=== PATIENT | male | born 1955 | race Caucasian/White ===

== ENCOUNTER → 2023-12-03 14:49 | Outpatient (REF) | payer MEDICARE, SELFPAY | LOC: HWRAD 14:49 | PROVIDERS: ATTENDING PHYSICIAN Specialist; FAMILY PHYSICIAN Family Medicine | DX: N17.9 Acute kidney failure, unspecified (principal); E87.20 Acidosis, unspecified; R80.9 Proteinuria, unspecified; N18.31 Chronic kidney disease, stage 3a | CPT/HCPCS: 76770 ==

== ENCOUNTER 2024-04-23 22:46 | Inpatient (IN) | payer MEDICARE, SELFPAY ==
[2024-04-23 19:41] VITALS: BP 138/80
[2024-04-23 19:57] LABS: % Eosinophils 3.6 % (0-6); % Immature Granulocytes 0.3 % (0-0.5); % Lymphocytes 15.9 % (20.5-51.1); % Monocytes 6.3 % (1.7-9.3); % Neutrophils 72.9 % (42.2-75.2); Absolute Basophils 0.1 10^3/uL (0-0.2); Absolute Eosinophils 0.3 10^3/uL (0-0.7); Absolute Lymphocytes 1.1 10^3/uL (1.2-3.4); Absolute Monocytes 0.5 10^3/uL (0.1-0.6); Absolute Neutrophils 5.3 10^3/uL (1.4-6.5); Hematocrit 29.2 % (39.0-52.0); Hemoglobin 10.3 g/dL (13.0-18.0); Mean Corp Hgb Conc. 35.3 g/dL (33.0-37.0); Mean Corpuscular Hgb 31.8 pg (27.0-31.0); Mean Corpuscular Volume 90.1 fL (80.0-94.0); Mean Platelet Volume 8.8 fL (7.4-10.4); Nucleated Red Blood Cells % 0 % (-); Platelet Count 182 10^3/uL (130-400); Red Blood Cell Count 3.24 10^6/uL (4.70-6.10); Red Cell Dist. Width 13.9 % (11.5-14.5); White Blood Cell Count 7.2 10^3/uL (4.8-10.8)
[2024-04-23 20:14] LABS: ALT (SGPT) 28 U/L (0-50); AST (SGOT) 34 U/L (17-59); Albumin 2.8 g/dl (3.5-5.0); Alkaline Phosphatase 49 U/L (38-126); Blood Urea Nitrogen 54 mg/dl (9-20); Calcium 8.1 mg/dl (8.4-10.2); Carbon Dioxide 10 mmol/L (22-30); Chloride 115 mmol/L (98-107); Glucose 123 mg/dl (70-99); Potassium 3.6 mmol/L (3.5-5.1); Sodium 139 mmol/L (135-145); Total Bilirubin 0.5 mg/dl (0.2-1.3); Total Protein 5.5 g/dl (6.3-8.2); eGFR 15.17
--- NOTE | 2024-04-23 20:26 | ED.GENMED ---
History of Present Illness
General
Chief Complaint: Abnormal Lab Value
Source: patient and spouse
Exam Limitations: none
Time Seen by Provider: 04/23/24 20:25
Nursing documentation reviewed up to this point in time: agreed with
History of Present Illness
History of Present Illness:
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
fatigue shortness of breath cough lower extremity edema decreased urine output inability to empty his bladder which is not a new issue
Past History
Past History
ED Past Medical History: CVA, HTN, Hypercholesterolemia, Renal failure and Psychiatric (Depression)
ED Past Surgical History: Cardiac (Cardiac catheterization, pacemaker) and Orthopedic (Right knee cyst removal)
Social History
Tobacco: Smoker
Alcohol: None
Drug: None
Personal:
Living: with family
Employment: Retired
Review of Systems
Review of Systems
All Other Systems: Not applicable
Constitutional: Reports fatigue; Denies fever
Respiratory: Reports cough and trouble breathing
Cardiac: Denies chest pain
ABD/GI: Denies abdominal pain or nausea
: Reports difficulty voiding
Musculoskeletal: Reports edema
Skin: Reports no symptoms
Neurological: Reports weakness
Endocrine: Reports no symptoms
Psychiatric: Reports no symptoms
Phy Exam
Physical Exam
Physical Exam:
Physical Exam
General: 69-year-old male mild distress
Neck: No jaundice
Heart: Regular
Lungs: Bibasilar crackle
Abdomen: Nontender
Neuro: alert and oriented. no focal neurological deficits
Skin: no rash
Psychiatric: well kept. interactive and cooperative
Extremities: Edema is present
Course
Orders/Labs/Results
Orders:
Orders
04/23/24 19:50
Complete Blood Count/With Diff Urgent
Comprehensive Metabolic Panel Urgent
04/23/24 20:34
Electrocardiogram (*1) Urgent
Reason for Study: Palpitations
CT Abd/pel Without Iv Or Oral Urgent
Comment:
Reason For Exam: arf
Bladder Scan- Treatment ONCE
EKG- Treatment ONCE
CR Chest - 2 Views Urgent
Comment:
Reason For Exam: sob
Abnormal Lab Results
04/23/24
19:50
RBC 3.24 L 10^6/uL
(4.70-6.10)
Hgb 10.3 L g/dL
(13.0-18.0)
Hct 29.2 L %
(39.0-52.0)
MCH 31.8 H pg
(27.0-31.0)
Absolute Lymphs (auto) 1.1 L 10^3/uL
(1.2-3.4)
Lymphocytes % 15.9 L %
(20.5-51.1)
Chloride 115 H mmol/L
(98-107)
Carbon Dioxide 10 L* mmol/L
(22-30)
BUN 54 H mg/dl
(9-20)
Creatinine 4.1 H* mg/dL
(0.7-1.3)
Glucose 123 H mg/dl
(70-99)
Calcium 8.1 L mg/dl
(8.4-10.2)
Total Protein 5.5 L g/dl
(6.3-8.2)
Albumin 2.8 L g/dl
(3.5-5.0)
04/23/24 19:50
04/23/24 19:50
Vital Signs
Initial and Last Documented VS:
Initial Vital Signs
Temp Pulse Resp BP Pulse Ox
97.2 F 74 16 138/80 97
04/23/24 19:41 04/23/24 19:41 04/23/24 19:41 04/23/24 19:41 04/23/24 19:41
Last Documented Vital Signs
Temp Pulse Resp BP Pulse Ox
97.2 F 74 16 138/80 97
04/23/24 19:41 04/23/24 19:41 04/23/24 19:41 04/23/24 19:41 04/23/24 19:41
MDM/Problems Addressed
Differential Diagnosis Includes:
ARF obstructive uropathy obstructing renal stone progressive renal insufficiency
MDM/Problems Addressed:
Fatigue shortness of breath lower extremity edema
Chronic conditions affecting care: HTN and Kidney disease
Acute Exacerbation and/or Progression of Chronic Illness: HTN and Kidney disease
*Critical Care Note
Total Time (30-74mins, 75-104mins- exclusive of procedures): 13
Update Note
Update Note:
Update bladder scan noted, will send for CT to look at his upper tract for obstruction there, message sent to hospitalist and nephrology
ED Attending Note
-
Portions of this chart may have been created with voice recognition software.� Occasional wrong word or��sound alike� substitutions may have occurred due to the inherent limitations of voice recognition software.
Discharge Plan
Departure
Patient Disposition: Admit
Date of Disposition: 04/23/24
Time of Disposition: 20:54
Admit to: Telemetry
Presentation/result/management discussed w/ accepting MD/DO: Hospitalist
Patient with high blood pressure during this ER visit?: Yes
Condition: Fair
Discharge Problem:
Acute renal failure (ARF)
Prescriptions:
No Action
coenzyme L46-arpkyos E 1 CAP capsule
1 cap PO DAILY
rosuvastatin 10 MG tablet
40 mg PO QPM
vitamin B complex 1 TAB tablet
1 tab PO DAILY
ascorbic acid (vitamin C) [Vitamin C] 500 MG tablet
1,000 mg PO DAILY
lisinopril 40 MG tablet
40 mg PO DAILY Qty: 30 3RF
spironolactone 25 MG tablet
12.5 mg PO DAILY Qty: 30 3RF
carvedilol 6.25 MG tablet
6.25 mg PO BID Qty: 60 3RF
aspirin 81 MG tablet,delayed release (DR/EC)
81 mg PO DAILY Qty: 1 0RF
acetaminophen [Tylenol] 325 MG capsule
650 mg PO Q4HPRN PRN (Reason: incisional pain ) Qty: 1 0RF
Interventions
Interventions:
*Risk Screen - Suicide Last Done: 04/23/24 19:41
*General Assessment Last Done: 04/23/24 19:41
*Neglect/Abuse Screening Last Done: 04/23/24 19:41
*ED- Fall Risk Assessment Last Done: 04/23/24 20:42
Discharge Date and Time
Print Language: CROATIAN
[2024-04-23 20:55] VITALS: BP 120/71
[2024-04-23 21:00] VITALS: BP 119/73
--- NOTE | 2024-04-23 21:10 | HPS.HSE ---
Family Physician
-
Family Physician: NOT KNOW UNKNOWN - PT DOES
Chief Complaint
-
abnormal lab values
History of Present Illness
Patient is a 69-year-old male with past medical history significant for essential hypertension, hypercholesterolemia, nonischemic cardiomyopathy, COPD, Hx ventricular tachycardia s/p dual ICD and Hx CVA who presented to [facility] ED for
evaluation of abnormal out patient lab values. Patient reports that he has been seeing Dr. Plata at [facility] and was referred for a second opinion and [facility]. This afternoon he had out patient labs for [facility] Renal Electrolytes and
Hypertension of Geri, the DEVOPS DEVELOPER from the office called and instructed patient to go to ED for evaluation and treatment of elevated creatine. He reports that he has noticed increased BLLE edema that has now progressed into thighs and abdomen. He
reports he normally will go to bed at night and edema would improve but over past few days he noticed swelling has not improved overnight when sleeping. He also reports lower abdomen discomfort, not sharp pains but discomfort and has been unsure if
it was coming from bloating gas in the intestine or from the bladder. He does note that for a while he has not felt he has been able to empty his bladder completely, bladder scan in ED shows little PRV. Patient denies any shortness of breath, cough
or pain.
Medical History
Past Medical History
Past Medical History: Reports Other
Additional Past Medical History:
essential hypertension
hypercholesterolemia
nonischemic cardiomyopathy
COPD
Hx ventricular tachycardia s/p dual ICD
Hx CVA
Past Surgical History: Reports Other
Additional Past Surgical History:
ICD
cyst removal from right knee
Social History
Tobacco: Former Smoker (quit in 2019, 40 pack year history )
Alcohol: Occasional
Drug: None
Personal:
Living: With Family
Employment: Retired
Family History
Family History: Not pertinent
Allergies / Home Medications
Allergies reflects when Allergies were last updated in [facility].
Home Medications with original date entered in [facility]
Allergy/Medication List:
Allergies
Allergy/AdvReac Type Severity Reaction Status Date / Time
No Known Allergies Allergy Verified 04/23/24 19:45
Home Medications
ascorbic acid (vitamin C) 500 mg tablet (Vitamin C) 1,000 mg PO DAILY 10/18/18
vitamin B complex 1 tab PO DAILY 10/18/18
aspirin 81 mg tablet,delayed release 81 mg PO DAILY #1 tab 10/19/18
albuterol sulfate 90 mcg/actuation aerosol inhaler 1 inh inhalation R Q4HPRN PRN sob 04/23/24
carvedilol 25 mg tablet 12.5 mg PO BID 04/23/24
cholecalciferol (vitamin D3) 50 mcg (2,000 unit) tablet (Vitamin D3) 50 mcg PO DAILY 04/23/24
coenzyme Q10 100 mg capsule (CoQ-10) 100 mg PO DAILY 04/23/24
eplerenone 25 mg tablet 25 mg PO DAILY 04/23/24
fluticasone fur. 200 mcg-umeclid 62.5 mcg-vilant 25 mcg inhalat.powder (Trelegy Ellipta) 1 inh inhalation R DAILY 04/23/24
furosemide 20 mg tablet 20 mg PO DAILY 04/23/24
hydralazine 50 mg tablet 50 mg PO TID 04/23/24
omega-3 fatty acids-fish oil 684 mg-1,200 mg capsule,delayed release 1 cap PO DAILY 04/23/24
rosuvastatin 40 mg tablet 40 mg PO QPM 04/23/24
sotalol 80 mg tablet 80 mg PO BID 04/23/24
Review of Systems
-
History Source: Patient
Constitutional: Reports No Symptoms
EENT: Reports No Symptoms
Respiratory: Reports No Symptoms
Cardiac: Reports No Symptoms
Abdomen/GI: Reports No Symptoms
: Reports Difficulty Voiding and Other (feels he is not emptying bladder all the way )
Musculoskeletal: Reports No Symptoms
Skin: Reports No Symptoms
Neurological: Reports No Symptoms
Endocrine: Reports No Symptoms
Hematologic/Lymphatic: Reports No Symptoms
Psych: Reports No Symptoms
Physical Exam
Vital Signs
Vital Signs
Temp Pulse Resp BP Pulse Ox
97.2 F 74 16 120/71 95
04/23/24 19:41 04/23/24 19:41 04/23/24 19:41 04/23/24 20:55 04/23/24 21:00
Physical Exam
General: Well Developed, Well Nourished, No Apparent Distress, Comfortable and Conversant
HEENT: NormoCephalic, Moist mucous membranes, Atraumatic, Rhine Conjunctivae, Nose Appears Normal and Ears Appear Normal
Respiratory: Crackles
Cardiac: S1/S2 and Regular Rhythm
GI: Soft, Non Tender and Normal Bowel Sounds
Rectal: Deferred by Provider
Genito-urinary: Deferred by me
Musculoskeletal: No Clubbing, No Cyanosis, Edema, Left Lower Extremity and Edema, Right Lower Extremity
Skin: IV/Catheter Site; No Rash
Neuro: Awake, Alert, AO x 3 and Nonfocal/grossly intact
Psych: Calm and Intact Judgment/Insight
Laboratory Results
-
04/23/24 19:50
04/23/24 19:50
Laboratory Results
Total Bilirubin 0.5 mg/dl (0.2-1.3) 04/23/24 19:50
AST 34 U/L (17-59) 04/23/24 19:50
ALT 28 U/L (0-50) 04/23/24 19:50
Alkaline Phosphatase 49 U/L (38-126) 04/23/24 19:50
Data Reviewed
-
Medical Tests (Nuc Med, Echo, EKG etc): Report Reviewed by me (EKG: Atrial-paced rhythm PROLONGED QT)
Lab Data: Labs Reviewed by me (HCO3 10, BUN 54, Creat 4.1)
Impression/Plan
-
IMPRESSION/PLAN:
#acute kidney injury
referred to ED from Nephrology at [place] for abnormal labs out patient
HCO3 10, BUN 54, Creat 4.1
- Admit to telemetry
- UA
- GARRETT
- Consult nephrology
#essential hypertension
- continue carvedilol and hydralazine
#hypercholesterolemia
- continue rosuvastatin
#nonischemic cardiomyopathy
- hold eplerenone and furosemide
- continue aspirin and carvedilol
- Consult Cardiology
#COPD
- continue albuterol
#Hx ventricular tachycardia s/p dual ICD
EKG: Atrial-paced rhythm
PROLONGED QT
- continue sotalol
#Hx CVA
Code status: full code
DVT prophylaxis: SCDs
--- NOTE | 2024-04-23 21:35 | W.PN.UPDATE ---
Update Note
Progress Note Update
This note serves as an addendum to the H&P by quality control scientist NIXON
Bessie Cooper
HPI
69M Smoker with DC ICD ( 2019) NICM, HX HFrEF with recovered LVEF 60-65 ( May 2022), NSTVT, NICM HX Occipital CVA ( 2018) , HTN, Hypercholesterolemia seen at ER
- OP blood work show ARF Cr 4.1
- reports SoB , cough, Vianney edema
- low UO
- inability to empty the bladder
Frusemide started 4 weeks ago. on Eplerenone
No longer on Spironolactone for > 5 yrs
VS
11/05/18
14:03 04/23/24
19:41 04/23/24
20:42
Temp 97.2 F
Pulse 74
Resp Rate 16
Blood pressure 138/80
SaO2 97
Oxygen Mode of Delivery Room air
Actual Weight 94.6 kg 97.6 kg
PE
Gen: NAD
HEENT: anicteric
Neck: supple
Lungs: bibasilar rales POS
Cor: RRR A pced Rythym
Abdomen: soft NT NG NRT
LASTER HAND: AAO3
MS: b/L Edema
Psych:interactive and cooperative
11/05/18 04/23/24
14:49 19:50
Hgb 14.4 10.3 L
Sodium 139
Potassium 3.6
Chloride 115 H
Carbon Dioxide 10 L*
BUN 54 H
Creatinine 1.0 4.1 H*
eGFR 15.17
Glucose 123 H
Albumin 2.8 L
US Renal With Bladder
Mild urinary retention. Otherwise unremarkable renal ultrasound, as detailed above.
No hydronephrosis
Post-void residual: 148 cc
EKG
Atrial-paced rhythm
PROLONGED QT
ABNORMAL ECG
WHEN COMPARED WITH ECG OF 05-NOV-2018 13:49,
PREMATURE VENTRICULAR COMPLEXES ARE NO LONGER PRESENT
T WAVE INVERSION NO LONGER EVIDENT IN LATERAL LEADS
QT HAS LENGTHENED
05/15/22 TTE
Normal left ventricular size, wall thickness and systolic function.
LV ejection fraction is 60-65% Abnormal septal motion consistent with RV pacemaker.
Trace mitral regurgitation.
Trace tricuspid regurgitation.
Compared to the previous report 03/03/2019 the ejection fraction has improved.
Previous the estimated ejection fraction is 45 to 50%.
NO PRIOR hospitalist admission:
ASSESSMENT & PLAN
Significant Oliguric SANTOS wit Cr 4.1 today
HX CKD ( Cr 1.67 on 04/12/23 at [place])
Oliguria
Normal K suggest chronic pathology
Hi AG MA 17
Of note: Frusemide started 4 weeks ago. on Eplerenone, No longer on Spironolactone for 5 yrs
- Unremarkable PVR
- No Sono evidence of Obstruction , hydronephrosis
- check UA for albumin
- Hold both MRAs - Eplerenone
- Hold Frusemide
- Renal consult
HX HFrEF with recovered LVEF as of 05/15/22 ECHO
HX NICM
- Hold Frusemide , Eplerenone due to SANTOS
- repeat ECHO
- CBC card consult
HX NSTVT
Status post dual-chamber ICD implant, 10/18/2018.
- c/w Sotalol
Benign HTN
- c/w Hydralazine
HLD
- on Rosuvastatin
HX cardiac catheterization with normal coronaries 10/18/2018.
DVT Px: SQH
Full code
IP TLM
[2024-04-23 22:10] VITALS: BP 146/84
[2024-04-23 22:17] LABS: NT-proBNP 2370 pg/ml
--- NOTE | 2024-04-23 23:15 | PTCARENOTE ---
Patient brought to unit from ED via stretcher. Patient ambulated from stretcher to bed. A&Ox3. Oriented to unit. Call light within reach. Care ongoing.
[2024-04-23 23:19] VITALS: BMI 29.1
[2024-04-23 23:58] VITALS: BP 130/74; BMI 29.0
[2024-04-24 03:10] VITALS: BP 136/80
[2024-04-24 03:29] LABS: Urine Albumin 4+ (Neg - Trace); Urine Bilirubin Negative (Negative); Urine Character Clear (Clear); Urine Color Yellow; Urine Glucose Negative (Negative); Urine Ketone Negative (Negative); Urine Leukocyte Negative (Negative); Urine Nitrite Negative (Negative); Urine Occult Blood 1+ (Negative); Urine Urobilinogen Negative (Neg - 1+)
[2024-04-24 03:55] LABS: Urine Amorphous Seen; Urine Granular Cast >15 /LPF (0); Urine Squamous Cell >30 /LPF (Few)
[2024-04-24 03:58] LABS: Urine Bacteria Many (Negative); Urine Mucus Many
[2024-04-24 03:59] LABS: Urine White Cell 50-60 /HPF (0-5)
[2024-04-24 04:01] LABS: Urine Hyaline Cast >15 /LPF (0-2)
[2024-04-24 06:00] VITALS: BMI 29.1
[2024-04-24 07:05] VITALS: BP 126/69
[2024-04-24 07:34] LABS: Hemoglobin 8.8 g/dL (13.0-18.0); Mean Corp Hgb Conc. 35.2 g/dL (33.0-37.0); Mean Corpuscular Hgb 32.1 pg (27.0-31.0); Mean Corpuscular Volume 91.2 fL (80.0-94.0); Mean Platelet Volume 9.2 fL (7.4-10.4); Platelet Count 162 10^3/uL (130-400); Red Blood Cell Count 2.74 10^6/uL (4.70-6.10); Red Cell Dist. Width 13.9 % (11.5-14.5); White Blood Cell Count 5.9 10^3/uL (4.8-10.8)
[2024-04-24] MEDS: SYMBICORT 160/4.5 MCG INHALER INH (08:12)
[2024-04-24] MEDS: SPIRIVA RESPIMAT 2.5 MCG INH (08:12)
[2024-04-24] MEDS: B COMPLEX w/VITAMIN C 1 CAPLET PO (08:23)
[2024-04-24] MEDS: ASPIR LOW (ENTERIC COATED) PO ×2 (08:23→08:30)
[2024-04-24] MEDS: VITAMIN C 1000 MG PO (08:23)
[2024-04-24] MEDS: APRESOLINE 50 MG PO ×3 (08:24→20:25)
[2024-04-24] MEDS: VITAMIN D3 (cholecalciferol) 50 MCG PO (08:24)
[2024-04-24] MEDS: COREG 12.5 MG PO (08:24)
[2024-04-24] MEDS: BETAPACE 80 MG PO (08:27)
[2024-04-24 09:21] LABS: Blood Urea Nitrogen 53 mg/dl (9-20); Calcium 7.8 mg/dl (8.4-10.2); Carbon Dioxide 12 mmol/L (22-30); Chloride 119 mmol/L (98-107); Estimated Creatinine Clearance 19 ml/min; Glucose 86 mg/dl (70-99); Potassium 3.4 mmol/L (3.5-5.1); Sodium 139 mmol/L (135-145); eGFR 15.17
--- NOTE | 2024-04-24 09:21 | CON.CAR ---
Consultation
Consultation Request
Date/Time Consultation Requested: 04/23/24 23:12
Date/Time Consultation Performed: 04/23/24 9:21
Requesting Provider: ALOK Thurston
Performing Provider: Som Rangel MD
Reason for Consultation: Cardiomyopathy
Medical History
-
Chief Complaint: Abnormal labs
History of Present Illness:
Robinson Yan is a 69-year-old man with prior cryptogenic stroke, hypertension, nonischemic cardiomyopathy (recovered EF), sustained VT status post ICD, and CKD who presents for abnormal outpatient labs. Patient reports that he had been following
with Dr. Plata for CKD. He was recently seen at [facility] for a second opinion and had outpatient labs done. He was called by ALOK from the [employer]raiser land office and told to go to the ER for evaluation of elevated creatinine. In hindsight,
he notes worsening bilateral lower extremity edema for the past few months. No change in weight. He denies dyspnea, orthopnea, and palpitations. In the ER labs were notable for creatinine 4.1 (recent baseline 1.6), BNP 2370, hemoglobin 8.8. CXR
was clear. TTE showed LVEF 55-60% and no valvular disease. ECG was atrial paced with QTc 512 ms.
Past Medical History
Past Medical History: Arrhythmias, CHF, CVA, HTN and Renal Failure
Social History
Tobacco: Non-Smoker
Living: Alone
Family History
Family History: Reviewed & Not Pertinent
Allergies / Home Medications
Allergy/AdvReac Type Severity Reaction Status Date / Time
No Known Allergies Allergy Verified 04/23/24 19:45
�Medication �Instructions �Recorded �Confirmed �Type
ascorbic acid (vitamin C) 500 mg 1,000 mg PO DAILY 10/18/18 04/23/24 History
tablet (Vitamin C)
vitamin B complex 1 tab PO DAILY 10/18/18 04/23/24 History
aspirin 81 mg tablet,delayed 81 mg PO DAILY #1 tab 10/19/18 04/23/24 Rx
release
albuterol sulfate 90 mcg/actuation 1 inh inhalation R Q4HPRN PRN sob 04/23/24 04/23/24 History
aerosol inhaler
carvedilol 25 mg tablet 12.5 mg PO BID 04/23/24 04/23/24 History
cholecalciferol (vitamin D3) 50 50 mcg PO DAILY 04/23/24 04/23/24 History
mcg (2,000 unit) tablet (Vitamin
D3)
coenzyme Q10 100 mg capsule 100 mg PO DAILY 04/23/24 04/23/24 History
(CoQ-10)
eplerenone 25 mg tablet 25 mg PO DAILY 04/23/24 04/23/24 History
fluticasone fur. 200 mcg-umeclid 1 inh inhalation R DAILY 04/23/24 04/23/24 History
62.5 mcg-vilant 25 mcg
inhalat.powder (Trelegy Ellipta)
furosemide 20 mg tablet 20 mg PO DAILY 04/23/24 04/23/24 History
hydralazine 50 mg tablet 50 mg PO TID 04/23/24 04/23/24 History
omega-3 fatty acids-fish oil 684 1 cap PO DAILY 04/23/24 04/23/24 History
mg-1,200 mg capsule,delayed release
rosuvastatin 40 mg tablet 40 mg PO QPM 04/23/24 04/23/24 History
sotalol 80 mg tablet 80 mg PO BID 04/23/24 04/23/24 History
Review of Systems
-
History Source: Patient
All other systems: Negative unless noted
Physical Exam
Vital Signs
Temp Pulse Resp BP Pulse Ox
98.2 F 63 18 126/69 97
04/24/24 07:05 04/24/24 07:05 04/24/24 07:05 04/24/24 07:05 04/24/24 07:05
Lab Results
04/24/24 07:09
Fbg-R-Xubuataxhtw Pept 2370 pg/ml 04/23/24 21:50
Physical Exam
General: Well Developed and Well Nourished
HEENT: Normocephalic and Anicteric
Respiratory: Clear and Non Labored Respirations; Negative Crackles
Cardiac: S1/S2, Regular Rhythm and Peripheral Edema; Negative Murmur
Neuro: AO x 3
Impression / Plan
-
Robinson Yan is a 69-year-old man with prior cryptogenic stroke, hypertension, nonischemic cardiomyopathy (recovered EF), sustained VT status post ICD, and CKD who presented to ER with acute renal failure discovered on outpatient labs.
Cardiology was consulted for his history of cardiomyopathy and VT.
Acute renal failure
-Severe exacerbation/progression of chronic kidney disease. Follows with Dr. Plata and [facility]
-Nephrology consulted
Sustained VT status post ICD
-Device interrogations for past 1 year were reviewed and show no episodes of VT. We will try to increase beta-yokasta and stop antiarrhythmic therapy. He is at lower risk for VT now that EF has normalized.
-Stop sotalol due to renal failure
-Increase carvedilol to 25 mg twice daily
-If he has recurrent VT we can add amiodarone or ranolazine
Nonischemic cardiomyopathy with recovered EF, chronic
-TTE 04/24/2024: LVEF 55-60%, no valvular disease
-He is volume overloaded with elevated NT proBNP, but this is most likely due to his renal failure
-Defer diuresis to nephrology
-Increase carvedilol as above
-Continue hydralazine at 50 mg 3 times daily (home dose). This may need to be decreased due to increasing beta-yokasta
-Eplerenone held for renal failure
Prior CVA
-He reports not taking aspirin at home. Unclear why.
-Continue statin
Hypertension
-Currently well-controlled. Monitor BPs with increased carvedilol
Data Reviewed
-
EKG: Tracing Personally Visualized and interpreted and Discussed with Patient
Radiology: Image Personally Visualized and interpreted and Discussed with Physician
Medical Tests (Nuc Med, Echo etc): Report Reviewed by me, Discussed with Physician and Discussed with Patient
Labs: Labs Reviewed by me and Discussed with Patient
Old Records: Reviewed
--- NOTE | 2024-04-24 10:35 | W.PN.HOSP.TC ---
Today's Communication/Plan
-
urine studies
follow up renal recs on further testing
diuretics held
Assessment / Plan
Assessment / Plan
Mr. Robinson Yan is a 69 yo man with hx cryptogenic CVA, essential HTN, nonishcemic cardiomyopathy with recovered EF, VT s/p AICD sent to the ER from nephrology clinic for abnormal outpatient labs with elevated creatinine.
Renal US:
IMPRESSION:
Normal unenhanced appearance of both kidneys and the urinary bladder.
Contracted gallbladder with no evidence for calcified gallstones.
Mild fatty infiltration of the liver with no focal hepatic lesion.
Moderate to severe vascular calcification with no aortic aneurysm.
Numerous colonic diverticula with no CT evidence for diverticulitis.
Moderate bilateral subcutaneous edema from the visualized lower lateral chest wall through the proximal thighs.
Acute Renal Failure
Proteinuria
+ Casts
referred to ED from Nephrology at [place] for abnormal labs out patient
HCO3 10, BUN 54, Creat 4.1
- Admit to telemetry
- renal US without hydronephrosis, + casts and 4+ albumin
- urine studies
- Urine GARRETT pending
- Renal consult
#essential hypertension
- continue carvedilol and hydralazine
#hypercholesterolemia
- continue rosuvastatin
#nonischemic cardiomyopathy
- hold eplerenone and furosemide
- continue aspirin and carvedilol
- appreciate Cardiology consult
#COPD
- continue albuterol
#Hx ventricular tachycardia s/p dual ICD
EKG: Atrial-paced rhythm
PROLONGED QT
- hold Sotalol in setting of renal failure
#Hx CVA
Code status: full code
DVT prophylaxis: SCDs
51 minutes spent on patient care
Anticipated Discharge: > 48 hours
Subjective/Interval History
-
Date of Service: April 24, 2024
mild shortness of breath, + LE swelling
no chest pain
Objective Data
-
Labs:
Laboratory Results
04/24/24
07:09
WBC 5.9
Hgb 8.8 L
Hct 25.0 L
Plt Count 162
Sodium 139
Potassium 3.4 L
Chloride 119 H
Carbon Dioxide 12 L*
BUN 53 H
Creatinine 4.1 H*
Glucose 86
Calcium 7.8 L
Vital Signs:
Vital Signs
Temp Pulse Resp BP Pulse Ox
98.2 F 63 18 126/69 97
04/24/24 07:05 04/24/24 07:05 04/24/24 07:05 04/24/24 07:05 04/24/24 07:05
Review of Systems
-
History Source: Patient
All other systems: Reviewed and negative
Physical Exam
-
General: No Apparent Distress; Negative Respiratory Distress
HEENT: PERRLA
Respiratory: Clear to Auscultation; Negative Wheezes
GI: Soft and Nontender
Musculoskeletal: Edema, Right Lower Extrem and Edema, Left Lower Extrem
Neuro: AO x 3
Psych: Calm
Data Reviewed
-
Diagnostic Radiology: Report Reviewed by me
Labs: Labs Reviewed by me
[2024-04-24 11:05] VITALS: BP 107/54
--- NOTE | 2024-04-24 11:17 | W.CON.NEPH ---
Consultation
-
Date/Time Consultation Requested: 04/24/2024 9 AM
Date/Time Consultation Performed: 04/24/2024 11 AM
Requesting Provider: Dr. Ortiz
Performing Provider: Dr. Fleming
Reason for Consultation: SANTOS
Medical History
-
Chief Complaint: Abnormal lab values
History of Present Illness:
This is a 69-year-old gentleman who had been seen by Dr. Plata in our office previously. He had a kidney biopsy for nephrotic range proteinuria of 5.5 g about 13 years ago. This had returned as anginal immune complex glomerulonephritis. The
recommendation then was for steroids but the patient had declined. He was then lost to follow-up until October of last year. He had return to the office and was noted to have an elevation of his creatinine at 1.6. He was noted to have
proteinuria of greater than 19 g. Serologic workup was negative in November 2023. Repeat blood work in April 11, 2024 showed a creatinine elevation up to 3.5. Lisinopril was discontinued. Patient had then gone to [facility] for a
second opinion which was performed earlier this week. He had then gone for repeat blood work again which had shown further elevation of his creatinine up to 4.0 for an outpatient labs and he was told to go to the emergency room. On arrival here
creatinine was 4.1. He had hypokalemia as well as metabolic acidosis.
On retrospect he reports that he has had worsening lower extremity edema for several weeks.
Past Medical History
Anginal immune complex GN
Nephrotic proteinuria
Stroke
Hypertension
Hyperlipidemia
Depression
Pacemaker
Right knee cyst resection
Social History
Tobacco: Smoker
Alcohol: None
Family History
Family History: Not Pertinent
Allergies / Home Medications
Allergy/AdvReac Type Severity Reaction Status Date / Time
No Known Allergies Allergy Verified 04/23/24 19:45
�Medication �Instructions �Recorded �Confirmed �Type
ascorbic acid (vitamin C) 500 mg 1,000 mg PO DAILY 10/18/18 04/23/24 History
tablet (Vitamin C)
vitamin B complex 1 tab PO DAILY 10/18/18 04/23/24 History
aspirin 81 mg tablet,delayed 81 mg PO DAILY #1 tab 10/19/18 04/23/24 Rx
release
albuterol sulfate 90 mcg/actuation 1 inh inhalation R Q4HPRN PRN sob 04/23/24 04/23/24 History
aerosol inhaler
carvedilol 25 mg tablet 12.5 mg PO BID 04/23/24 04/23/24 History
cholecalciferol (vitamin D3) 50 50 mcg PO DAILY 04/23/24 04/23/24 History
mcg (2,000 unit) tablet (Vitamin
D3)
coenzyme Q10 100 mg capsule 100 mg PO DAILY 04/23/24 04/23/24 History
(CoQ-10)
eplerenone 25 mg tablet 25 mg PO DAILY 04/23/24 04/23/24 History
fluticasone fur. 200 mcg-umeclid 1 inh inhalation R DAILY 04/23/24 04/23/24 History
62.5 mcg-vilant 25 mcg
inhalat.powder (Trelegy Ellipta)
furosemide 20 mg tablet 20 mg PO DAILY 04/23/24 04/23/24 History
hydralazine 50 mg tablet 50 mg PO TID 04/23/24 04/23/24 History
omega-3 fatty acids-fish oil 684 1 cap PO DAILY 04/23/24 04/23/24 History
mg-1,200 mg capsule,delayed release
rosuvastatin 40 mg tablet 40 mg PO QPM 04/23/24 04/23/24 History
sotalol 80 mg tablet 80 mg PO BID 04/23/24 04/23/24 History
Review of Systems
-
Lower extremity edema, fatigue, shortness of breath
All other systems: Negative unless noted
Physical Exam
Vital Signs
Vital Signs
Temp Pulse Resp BP Pulse Ox
97.4 F 61 18 107/54 97
04/24/24 11:05 04/24/24 11:05 04/24/24 11:05 04/24/24 11:05 04/24/24 11:05
Lab Results
WBC 5.9 10^3/uL (4.8-10.8) 04/24/24 07:09
RBC 2.74 10^6/uL (4.70-6.10) L 04/24/24 07:09
Hgb 8.8 g/dL (13.0-18.0) L 04/24/24 07:09
Hct 25.0 % (39.0-52.0) L 04/24/24 07:09
Plt Count 162 10^3/uL (130-400) 04/24/24 07:09
Sodium 139 mmol/L (135-145) 04/24/24 07:09
Potassium 3.4 mmol/L (3.5-5.1) L 04/24/24 07:09
Chloride 119 mmol/L (98-107) H 04/24/24 07:09
Carbon Dioxide 12 mmol/L (22-30) L* 04/24/24 07:09
BUN 53 mg/dl (9-20) H 04/24/24 07:09
Creatinine 4.1 mg/dL (0.7-1.3) H* 04/24/24 07:09
eGFR 15.17 04/24/24 07:09
Glucose 86 mg/dl (70-99) 04/24/24 07:09
Calcium 7.8 mg/dl (8.4-10.2) L 04/24/24 07:09
Hnt-F-Adxtewheczi Pept 2370 pg/ml 04/23/24 21:50
Albumin 2.8 g/dl (3.5-5.0) L 04/23/24 19:50
01/14/2024 creatinine 1.67
11/29/2023 ROSANNA 2R less than 1.8, complements normal, ANCA negative, MEGAN negative
04/11/2024 potassium 3.2, creatinine 3.5, BUN 40, proteinuria greater than 18 g
04/21/[address] abdomen pelvis 04/23/2024
IMPRESSION:
Normal unenhanced appearance of both kidneys and the urinary bladder.
Contracted gallbladder with no evidence for calcified gallstones.
Mild fatty infiltration of the liver with no focal hepatic lesion.
Moderate to severe vascular calcification with no aortic aneurysm.
Numerous colonic diverticula with no CT evidence for diverticulitis.
Moderate bilateral subcutaneous edema from the visualized lower lateral chest wall through the proximal thighs.
Physical Exam
Patient is awake alert oriented and in no distress. Mood and affect were pleasant, insight and judgment were good. Pupils are equal round and reactive to light, extraocular movements are intact, sclera were anicteric. Hearing was normal, ears and
nose are intact. Oropharynx was clear. Neck was supple with trachea midline and no thyromegaly. Heart was regular rate and rhythm without rubs. Lower extremities with 3+ edema to the knee. Lungs were clear to auscultation bilaterally but with
rales at the bases and with normal excursion. Abdomen was soft, nontender, with normal active bowel sounds, and no hepatosplenomegaly. Skin was without rash and with normal turgor.
Data Reviewed
-
Radiology: Image Personally Visualized and interpreted (Chest x-ray 04/23/2024 by reading shows no acute disease)
Medical Tests (Nuc Med, Echo etc): Image Personally Visualized and interpreted (EKG 04/23/2024 by my rhythm a paced rhythm prolonged QT) and Report Reviewed by me (Echo 04/24/2024 ejection 55% no valve disease)
Labs: Labs Reviewed by me
Old Records: Reviewed
Assessment/Plan
-
Assessment
Nephrotic range proteinuria
SANTOS progressive
Hypokalemia
Metabolic acidosis
Edema/anasarca
hypertension
Pacemaker
History cryptogenic stroke
Plan
Discussed with patient at length
plan for kidney biopsy Sunday
Patient will consider whether or not he would except steroids. If so we would pulse with Solu-Medrol 500 mg daily for 3 days then convert to oral prednisone 80 mg daily
Lasix for edema management
Crestor max dose 10 mg daily given GFR
Replete potassium
Sodium bicarbonate
Check for renal vein thrombosis
Patient will need to also consider whether or not he would accept dialysis in the future. I believe he will.
Follow BMP
[2024-04-24 12:16] LABS: Urine Sodium 52 mmol/L (30-90)
[2024-04-24] MEDS: KCL 40 MEQ PO (12:39)
[2024-04-24] MEDS: LASIX 40 MG IV (12:42)
[2024-04-24 15:05] VITALS: BP 138/85
[2024-04-24] MEDS: SODIUM BICARBONATE 650 MG PO ×2 (16:24→20:25)
--- NOTE | 2024-04-24 16:55 | CM ---
Met with patient to obtain information for assessment. Patient's was at bedside. Patient stated that he lives with his and son in a two story home with one step to enter. Patient stated that he is independent with all of his ADLs, personal
care, bathing and dressing. 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 He can drive and can get himself to appointments and can do his own shopping. His relayed that they just got back from a vacation mountain climbing.
Patient has no DME.
He has not had VN.
Patient has a prescription plan and uses, [facility] in [place] for all of his medications.
Patient feels that he will be able to return home when medically cleared for discharge.
Plan: Case management will continue to follow and assist with discharge planning. Home when stable.
[2024-04-24] MEDS: CRESTOR 10 MG PO (17:40)
[2024-04-24 19:00] VITALS: BP 125/68
[2024-04-24] MEDS: SYMBICORT 160/4.5 MCG INHALER 2 PUFF INH (19:38)
[2024-04-24] MEDS: COREG 25 MG PO (20:24)
[2024-04-24 23:00] VITALS: BP 120/61
[2024-04-25 03:00] VITALS: BP 122/66
[2024-04-25 06:00] VITALS: BMI 28.8
[2024-04-25 07:03] LABS: Hematocrit 25.6 % (39.0-52.0); Hemoglobin 9.1 g/dL (13.0-18.0); Mean Corp Hgb Conc. 35.5 g/dL (33.0-37.0); Mean Corpuscular Hgb 32.9 pg (27.0-31.0); Mean Corpuscular Volume 92.4 fL (80.0-94.0); Mean Platelet Volume 9.3 fL (7.4-10.4); Platelet Count 152 10^3/uL (130-400); Red Blood Cell Count 2.77 10^6/uL (4.70-6.10); White Blood Cell Count 6.8 10^3/uL (4.8-10.8)
[2024-04-25 07:05] VITALS: BP 130/71
[2024-04-25 07:07] LABS: Albumin 2.2 g/dl (3.5-5.0); Blood Urea Nitrogen 56 mg/dl (9-20); Calcium 7.7 mg/dl (8.4-10.2); Carbon Dioxide 12 mmol/L (22-30); Chloride 120 mmol/L (98-107); Estimated Creatinine Clearance 18 ml/min; Glucose 93 mg/dl (70-99); Phosphorus 7.9 mg/dl (2.5-4.5); Potassium 3.6 mmol/L (3.5-5.1); Sodium 141 mmol/L (135-145); eGFR 14.33
[2024-04-25 07:31] LABS: Vitamin D, 25-OH*** < 12.8 ng/mL (30-80)
[2024-04-25] MEDS: SYMBICORT 160/4.5 MCG INHALER 2 PUFF INH ×2 (08:17→19:33)
[2024-04-25] MEDS: SPIRIVA RESPIMAT 2.5 MCG 2 PUFF INH (08:17)
[2024-04-25] MEDS: SODIUM BICARBONATE 650 MG PO ×3 (08:49→21:33)
[2024-04-25] MEDS: COREG 25 MG PO ×2 (08:49→21:33)
[2024-04-25] MEDS: VITAMIN C 1000 MG PO (08:49)
[2024-04-25] MEDS: ASPIR LOW (ENTERIC COATED) 81 MG PO (08:50)
[2024-04-25] MEDS: APRESOLINE 50 MG PO ×3 (08:50→21:33)
[2024-04-25] MEDS: B COMPLEX w/VITAMIN C 1 CAPLET PO (08:50)
[2024-04-25] MEDS: VITAMIN D3 (cholecalciferol) 50 MCG PO (08:50)
--- NOTE | 2024-04-25 09:38 | W.PN.HOSP.TC ---
Today's Communication/Plan
-
see plan
Assessment / Plan
Assessment / Plan
Mr. Robinson Yan is a 69 yo man with hx cryptogenic CVA, essential HTN, nonishcemic cardiomyopathy with recovered EF, VT s/p AICD sent to the ER from nephrology clinic for abnormal outpatient labs with elevated creatinine.
Patient has a history of anginal immune complex glomerulonephritis diagnosed 13 years ago. He declined steroids at this time, lost to follow up then referred to Renal Clinic with creatinine 1.6 in October 2023. Proteinuria > 19G. He has had
significant increase in creatinine since then prompting ER visit and admission.
Renal US:
IMPRESSION:
Normal unenhanced appearance of both kidneys and the urinary bladder.
Contracted gallbladder with no evidence for calcified gallstones.
Mild fatty infiltration of the liver with no focal hepatic lesion.
Moderate to severe vascular calcification with no aortic aneurysm.
Numerous colonic diverticula with no CT evidence for diverticulitis.
Moderate bilateral subcutaneous edema from the visualized lower lateral chest wall through the proximal thighs.
Acute Renal Failure with significant progression over past 4-6 months
Hx Anginal Immune Complex Glomerulonephritis
Nephrotic Proteinuria
+ Casts
referred to ED from Nephrology at [place] for abnormal labs out patient
HCO3 10, BUN 54, Creat 4.1
- Admit to telemetry
- renal US without hydronephrosis, + casts and 4+ albumin
- Renal consult appreciated
- plan for kidney biopsy on Sunday
- patient contemplating steroids
- Lasix started to help with edema management
#essential hypertension
- continue carvedilol and hydralazine
#hypercholesterolemia
- continue rosuvastatin
#nonischemic cardiomyopathy
- hold ADMISSIONS COORDINATOR eplerenone
- Lasix resumed per Renal
- continue aspirin and carvedilol (dose increased)
- appreciate Cardiology consult
#COPD
- continue albuterol
#Hx ventricular tachycardia s/p dual ICD
EKG: Atrial-paced rhythm
PROLONGED QT
- hold Sotalol in setting of renal failure
#Hx CVA --> *hold aspirin pre-biopsy (confirmed with IR)
Code status: full code
DVT prophylaxis: SCDs
51 minutes spent on patient care
Anticipated Discharge: > 48 hours
Subjective/Interval History
-
Date of Service: April 25, 2024
swelling improved
breathing stable
Objective Data
-
Labs:
Laboratory Results
04/25/24
06:42
WBC 6.8
Hgb 9.1 L
Hct 25.6 L
Plt Count 152
Sodium 141
Potassium 3.6
Chloride 120 H
Carbon Dioxide 12 L*
BUN 56 H
Creatinine 4.3 H*
Glucose 93
Calcium 7.7 L
Vital Signs:
Vital Signs
Temp Pulse Resp BP Pulse Ox
98.5 F 61 18 130/71 97
04/25/24 07:05 04/25/24 08:49 04/25/24 07:05 04/25/24 08:49 04/25/24 07:05
I&O
04/24/24 04/25/24 04/26/24
06:59 06:59 06:59
Intake Total 1560 / 1560
Output Total 950 / 950
Balance 610 / 610
Review of Systems
-
History Source: Patient
All other systems: Reviewed and negative
Physical Exam
-
General: No Apparent Distress; Negative Respiratory Distress
HEENT: PERRLA
Respiratory: Clear to Auscultation; Negative Wheezes
GI: Soft and Nontender
Musculoskeletal: Edema, Right Lower Extrem and Edema, Left Lower Extrem
Neuro: AO x 3
Psych: Calm
Data Reviewed
-
Diagnostic Radiology: Report Reviewed by me
Labs: Labs Reviewed by me
[2024-04-25 10:58] VITALS: BP 110/61
--- NOTE | 2024-04-25 12:56 | W.PN.NEPH.PH ---
Today's Communication / Plan
-
Start Solu-Medrol 1 g daily x 3 days
Assessment/Plan
-
Assessment
Nephrotic range proteinuria
SANTOS progressive
Hypokalemia
Metabolic acidosis
Edema/anasarca
hypertension
Pacemaker
History cryptogenic stroke
Plan
Discussed with patient at length
plan for kidney biopsy Sunday
Lasix for edema management
Crestor max dose 10 mg daily given GFR
Long discussion about renal prognosis. Patient does agree to start IV steroids.
Will start Solu-Medrol 1 g daily x 3 days.
No acute need for dialysis but does agree that he will do dialysis if we get to that point and may be candidate for peritoneal dialysis as an outpatient.
Total Time Spent with Patient (in minutes): 35
-
-
Date of Service: April 25, 2024
CC / HPI / ROS
-
Chief Complaint:
Acute kidney injury
History of Present Illness:
Presents with edema and worsening renal function and proteinuria
Review of Systems:
No chest pain or shortness of breath
Labs
-
Labs:
WBC 6.8 10^3/uL (4.8-10.8) 04/25/24 06:42
RBC 2.77 10^6/uL (4.70-6.10) L 04/25/24 06:42
Hgb 9.1 g/dL (13.0-18.0) L 04/25/24 06:42
Hct 25.6 % (39.0-52.0) L 04/25/24 06:42
Plt Count 152 10^3/uL (130-400) 04/25/24 06:42
Sodium 141 mmol/L (135-145) 04/25/24 06:42
Potassium 3.6 mmol/L (3.5-5.1) 04/25/24 06:42
Chloride 120 mmol/L (98-107) H 04/25/24 06:42
Carbon Dioxide 12 mmol/L (22-30) L* 04/25/24 06:42
BUN 56 mg/dl (9-20) H 04/25/24 06:42
Creatinine 4.3 mg/dL (0.7-1.3) H* 04/25/24 06:42
eGFR 14.33 04/25/24 06:42
Glucose 93 mg/dl (70-99) 04/25/24 06:42
Calcium 7.7 mg/dl (8.4-10.2) L 04/25/24 06:42
Phosphorus 7.9 mg/dl (2.5-4.5) H 04/25/24 06:42
Wgw-P-Ejszcsqtysy Pept 2370 pg/ml 04/23/24 21:50
Albumin 2.2 g/dl (3.5-5.0) L 04/25/24 06:42
Physical Exam
-
Vital Signs:
Vital Signs
Temp Pulse Resp BP Pulse Ox
97.8 F 66 19 110/61 98
04/25/24 10:58 04/25/24 10:58 04/25/24 10:58 04/25/24 10:58 04/25/24 10:58
Respiratory:: Bilateral: CTA
Lung Excursion:: Normal
Abdomen:: Soft
Bowel Sounds:: Normal
Extremity Edema:: +1: Bilateral:
Escudero Catheter: No
[2024-04-25 15:05] VITALS: BP 125/69
[2024-04-25] MEDS: SOLU-MEDROL 258 MG IV (15:19)
[2024-04-25] MEDS: CRESTOR 10 MG PO (18:06)
[2024-04-25 19:07] VITALS: BP 135/75
[2024-04-25 22:53] VITALS: BP 125/69
[2024-04-26 02:59] VITALS: BP 133/73
[2024-04-26 06:00] VITALS: BMI 29.0
[2024-04-26 07:10] VITALS: BP 140/77
[2024-04-26] MEDS: SYMBICORT 160/4.5 MCG INHALER 2 PUFF INH ×2 (07:36→19:21)
[2024-04-26] MEDS: SPIRIVA RESPIMAT 2.5 MCG 2 PUFF INH (07:36)
[2024-04-26 08:00] LABS: Blood Urea Nitrogen 62 mg/dl (9-20); Carbon Dioxide 9 mmol/L (22-30); Chloride 115 mmol/L (98-107); Estimated Creatinine Clearance 16 ml/min; Glucose 143 mg/dl (70-99); Potassium 3.9 mmol/L (3.5-5.1); Sodium 139 mmol/L (135-145); eGFR 12.88
[2024-04-26] MEDS: APRESOLINE 50 MG PO ×3 (09:01→21:05)
[2024-04-26] MEDS: SODIUM BICARBONATE 650 MG PO (09:01)
[2024-04-26] MEDS: B COMPLEX w/VITAMIN C 1 CAPLET PO (09:01)
[2024-04-26] MEDS: VITAMIN C 1000 MG PO (09:01)
[2024-04-26] MEDS: COREG 25 MG PO ×2 (09:01→21:05)
[2024-04-26] MEDS: VITAMIN D3 (cholecalciferol) 50 MCG PO (09:02)
[2024-04-26] MEDS: SOLU-MEDROL 258 MG IV (09:02)
--- NOTE | 2024-04-26 09:18 | W.PN.HOSP.TC ---
Today's Communication/Plan
-
pulse dose steroids
IR-guided renal biopsy on Sunday
encourage ambulation
F/U further renal recs
Assessment / Plan
Assessment / Plan
Mr. Robinson Yan is a 69 yo man with hx cryptogenic CVA, essential HTN, nonishcemic cardiomyopathy with recovered EF, VT s/p AICD sent to the ER from nephrology clinic for abnormal outpatient labs with elevated creatinine.
Patient has a history of anginal immune complex glomerulonephritis diagnosed 13 years ago. He declined steroids at this time, lost to follow up then referred to Renal Clinic with creatinine 1.6 in October 2023. Proteinuria > 19G. He has had
significant increase in creatinine since then prompting ER visit and admission.
Renal US:
IMPRESSION:
Normal unenhanced appearance of both kidneys and the urinary bladder.
Contracted gallbladder with no evidence for calcified gallstones.
Mild fatty infiltration of the liver with no focal hepatic lesion.
Moderate to severe vascular calcification with no aortic aneurysm.
Numerous colonic diverticula with no CT evidence for diverticulitis.
Moderate bilateral subcutaneous edema from the visualized lower lateral chest wall through the proximal thighs.
Acute Renal Failure with significant progression over past 4-6 months
Hx Anginal Immune Complex Glomerulonephritis
Nephrotic Proteinuria
+ Casts
referred to ED from Nephrology at [place] for abnormal labs out patient
- Admit to telemetry
- renal US without hydronephrosis, + casts and 4+ albumin
- Renal consult appreciated
- plan for kidney biopsy on Sunday
- pulse dose steroids started - day 2
- Lasix stopped
-patient understands he may need dialysis
#essential hypertension
- continue carvedilol and hydralazine
#hypercholesterolemia
- continue rosuvastatin
#nonischemic cardiomyopathy
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
- hold Lasix
-continue carvedilol (dose increased)
- appreciate Cardiology consult
-aspirin on hold for renal Biopsy
#COPD
- continue albuterol
#Hx ventricular tachycardia s/p dual ICD
EKG: Atrial-paced rhythm
PROLONGED QT
- hold Sotalol in setting of renal failure
#Hx CVA --> *hold aspirin pre-biopsy (confirmed with IR)
Code status: full code
DVT prophylaxis: SCDs, patient ambulating
51 minutes spent on patient care
Anticipated Discharge: > 48 hours
Subjective/Interval History
-
Date of Service: April 26, 2024
no chest pain or shortness of breath
Objective Data
-
Labs:
Laboratory Results
04/26/24
06:36
Sodium 139
Potassium 3.9
Chloride 115 H
Carbon Dioxide 9 L*
BUN 62 H
Creatinine 4.7 H*
Glucose 143 H
Calcium 8.0 L
Vital Signs:
Vital Signs
Temp Pulse Resp BP Pulse Ox
98.0 F 68 16 140/77 96
04/26/24 07:10 04/26/24 07:42 04/26/24 07:42 04/26/24 07:10 04/26/24 07:42
I&O
04/25/24 04/26/24 04/27/24
06:59 06:59 06:59
Intake Total 1560 / 1560 2039
Output Total 950 / 950 475 / 475
Balance 610 / 610 1565 / 1565
Review of Systems
-
History Source: Patient
All other systems: Reviewed and negative
Physical Exam
-
General: No Apparent Distress; Negative Respiratory Distress
HEENT: PERRLA
Respiratory: Clear to Auscultation; Negative Wheezes
GI: Soft and Nontender
Musculoskeletal: Edema, Right Lower Extrem and Edema, Left Lower Extrem
Neuro: AO x 3
Psych: Calm
Data Reviewed
-
Diagnostic Radiology: Report Reviewed by me
Labs: Labs Reviewed by me
[2024-04-26 11:08] VITALS: BP 142/80
[2024-04-26] MEDS: SODIUM BICARBONATE 1150 MEQ IV ×2 (11:17→21:05)
--- NOTE | 2024-04-26 11:48 | W.PN.NEPH.PH ---
Today's Communication / Plan
-
Start IV bicarbonate
Assessment/Plan
-
Assessment
Nephrotic range proteinuria
SANTSO progressive
Hypokalemia
Metabolic acidosis
Edema/anasarca
hypertension
Pacemaker
History cryptogenic stroke
Plan
Discussed with patient at length
plan for kidney biopsy Sunday
Lasix for edema management
Crestor max dose 10 mg daily given GFR
Long discussion about renal prognosis. Patient does agree to start IV steroids.
#2 of Solu-Medrol 1 g daily x 3 days.
No acute need for dialysis but does agree that he will do dialysis if we get to that point and may be candidate for peritoneal dialysis as an outpatient.
I do expect that he will need dialysis prior to discharge via permacath
Will start him on bicarbonate IV and discontinue p.o. bicarbonate
-
-
Date of Service: April 26, 2024
CC / HPI / ROS
-
Chief Complaint:
Acute kidney injury
History of Present Illness:
Presents with edema and worsening renal function and proteinuria
Review of Systems:
No chest pain or shortness of breath
Labs
-
Labs:
WBC 6.8 10^3/uL (4.8-10.8) 04/25/24 06:42
RBC 2.77 10^6/uL (4.70-6.10) L 04/25/24 06:42
Hgb 9.1 g/dL (13.0-18.0) L 04/25/24 06:42
Hct 25.6 % (39.0-52.0) L 04/25/24 06:42
Plt Count 152 10^3/uL (130-400) 04/25/24 06:42
Sodium 139 mmol/L (135-145) 04/26/24 06:36
Potassium 3.9 mmol/L (3.5-5.1) 04/26/24 06:36
Chloride 115 mmol/L (98-107) H 04/26/24 06:36
Carbon Dioxide 9 mmol/L (22-30) L* 04/26/24 06:36
BUN 62 mg/dl (9-20) H 04/26/24 06:36
Creatinine 4.7 mg/dL (0.7-1.3) H* 04/26/24 06:36
eGFR 12.88 04/26/24 06:36
Glucose 143 mg/dl (70-99) H 04/26/24 06:36
Calcium 8.0 mg/dl (8.4-10.2) L 04/26/24 06:36
Phosphorus 7.9 mg/dl (2.5-4.5) H 04/25/24 06:42
Thz-U-Tgnbqgjkfwz Pept 2370 pg/ml 04/23/24 21:50
Albumin 2.2 g/dl (3.5-5.0) L 04/25/24 06:42
Physical Exam
-
Vital Signs:
Vital Signs
Temp Pulse Resp BP Pulse Ox
97.6 F 85 18 142/80 96
04/26/24 11:08 04/26/24 11:08 04/26/24 11:08 04/26/24 11:08 04/26/24 11:08
Respiratory:: Bilateral: CTA
Lung Excursion:: Normal
Abdomen:: Soft
Bowel Sounds:: Normal
Extremity Edema:: +1: Bilateral:
Escudero Catheter: No
--- NOTE | 2024-04-26 14:31 | W.PN.CD ---
Today's Communication / Plan
-
trend tele off of sotalol
Impression / Plan
-
Robinson Yan is a 69-year-old man with prior cryptogenic stroke, hypertension, nonischemic cardiomyopathy (recovered EF), sustained VT status post ICD, and CKD who presented to ER with acute renal failure discovered on outpatient labs.
Cardiology was consulted for his history of cardiomyopathy and VT.
Acute renal failure
-Severe exacerbation/progression of chronic kidney disease. Follows with Dr. Plata and [place] nephrology
-Nephrology consulted: may need biopsy
Sustained VT, status post ICD
-Device interrogations for past 1 year were reviewed and show no episodes of VT.
-Stopped sotalol due to acute renal failure
-Increased carvedilol to 25 mg twice daily
-If he has recurrent VT we can add amiodarone
Nonischemic cardiomyopathy with improved EF, chronic
-TTE 04/24/2024: LVEF 55-60%, no valvular disease
-He is volume overloaded with elevated NT proBNP, but this is most likely due to his renal failure
-Defer diuresis to nephrology
-Increase carvedilol as above
-Continue hydralazine at 50 mg 3 times daily (home dose). This may need to be decreased due to increasing beta-yokasta
-Eplerenone stopped for renal failure
Prior CVA
-He reports not taking aspirin at home. Unclear why.
-Continue statin
Hypertension
-Currently well-controlled. Monitor BPs with increased carvedilol
Physical Exam
Vital Signs/Labs
Vital Signs
Temp Pulse Resp BP Pulse Ox
97.6 F 85 18 142/80 96
04/26/24 11:08 04/26/24 11:08 04/26/24 11:08 04/26/24 11:08 04/26/24 11:08
04/25/24 04/26/24 04/27/24
06:59 06:59 06:59
Actual Weight 93.758 kg 94.256 kg
04/25/24 06:42
04/26/24 06:36
04/23/24
21:50
Fbz-S-Qbctauvllhj Pept 2370
Physical Exam
Constitutional: No acute distress and Comfortable
EENT: Moist mucous membranes
Cardiovascular: Rhythm & rate is regular, Pedal edema is absent, JVD pressure is normal and Systolic murmur absent
Respiratory: Respiratory effort normal and Lungs clear to auscul.
Neuro/Psych: AO x 3
Data Reviewed
-
Date of Service: April 26, 2024
EKG: Other (Tele: NSR 60s, no arrhythmia)
Labs: Labs Reviewed by me
[2024-04-26 15:16] VITALS: BP 135/77
[2024-04-26] MEDS: CRESTOR 10 MG PO (17:42)
[2024-04-26 19:27] VITALS: BP 147/76
[2024-04-26 23:14] VITALS: BP 135/81
[2024-04-27 03:33] VITALS: BP 136/81
[2024-04-27 06:00] VITALS: BMI 29.0
[2024-04-27] MEDS: SPIRIVA RESPIMAT 2.5 MCG 2 PUFF INH (07:16)
[2024-04-27] MEDS: SYMBICORT 160/4.5 MCG INHALER 2 PUFF INH ×2 (07:16→19:40)
[2024-04-27 07:34] VITALS: BP 144/86
[2024-04-27] MEDS: SOLU-MEDROL 258 MG IV (07:48)
[2024-04-27] MEDS: B COMPLEX w/VITAMIN C 1 CAPLET PO (07:52)
[2024-04-27] MEDS: COREG 25 MG PO ×2 (07:52→20:35)
[2024-04-27] MEDS: VITAMIN C 1000 MG PO (07:52)
[2024-04-27] MEDS: APRESOLINE 50 MG PO ×3 (07:52→23:04)
[2024-04-27] MEDS: VITAMIN D3 (cholecalciferol) 50 MCG PO (07:52)
[2024-04-27 08:14] LABS: Blood Urea Nitrogen 76 mg/dl (9-20); Calcium 8.6 mg/dl (8.4-10.2); Carbon Dioxide 17 mmol/L (22-30); Chloride 108 mmol/L (98-107); Estimated Creatinine Clearance 16 ml/min; Glucose 148 mg/dl (70-99); Potassium 3.4 mmol/L (3.5-5.1); Sodium 136 mmol/L (135-145); eGFR 12.25
[2024-04-27] MEDS: SODIUM BICARBONATE 1150 MEQ IV (08:50)
--- NOTE | 2024-04-27 09:34 | W.PN.HOSP.TC ---
Today's Communication/Plan
-
NPO after MN for renal biopsy
IV Solumedrol
sodium Bicarb
appreciate Renal
Assessment / Plan
Assessment / Plan
Mr. Robinson Yan is a 69 yo man with hx cryptogenic CVA, essential HTN, nonishcemic cardiomyopathy with recovered EF, VT s/p AICD sent to the ER from nephrology clinic for abnormal outpatient labs with elevated creatinine.
Patient has a history of anginal immune complex glomerulonephritis diagnosed 13 years ago. He declined steroids at this time, lost to follow up then referred to Renal Clinic with creatinine 1.6 in October 2023. Proteinuria > 19G. He has had
significant increase in creatinine since then prompting ER visit and admission.
Renal US:
IMPRESSION:
Normal unenhanced appearance of both kidneys and the urinary bladder.
Contracted gallbladder with no evidence for calcified gallstones.
Mild fatty infiltration of the liver with no focal hepatic lesion.
Moderate to severe vascular calcification with no aortic aneurysm.
Numerous colonic diverticula with no CT evidence for diverticulitis.
Moderate bilateral subcutaneous edema from the visualized lower lateral chest wall through the proximal thighs.
Acute Renal Failure with significant progression over past 4-6 months
Hx Anginal Immune Complex Glomerulonephritis
Nephrotic Proteinuria
+ Casts
referred to ED from Nephrology at [place] for abnormal labs out patient
- Admitted to telemetry
- renal US without hydronephrosis, + casts and 4+ albumin
- Renal consult appreciated
- plan for kidney biopsy on Sunday
- pulse dose steroids started - day 3
- Lasix stopped
- sodium bicarb per renal
-patient understands he may need dialysis
Hx CVA --> *hold aspirin pre-biopsy (confirmed with IR)
#essential hypertension
- continue carvedilol and hydralazine
#hypercholesterolemia
- continue rosuvastatin
#nonischemic cardiomyopathy
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
- hold Lasix
-continue carvedilol (dose increased)
- appreciate Cardiology consult
-aspirin on hold for renal Biopsy
#COPD
- continue albuterol
#Hx ventricular tachycardia s/p dual ICD
EKG: Atrial-paced rhythm
PROLONGED QT
- hold Sotalol in setting of renal failure
Code status: full code
DVT prophylaxis: SCDs, patient ambulating
51 minutes spent on patient care
Anticipated Discharge: > 48 hours
Subjective/Interval History
-
Date of Service: April 27, 2024
denies chest pain or shortness of breath
Objective Data
-
Labs:
Laboratory Results
04/27/24
06:52
Sodium 136
Potassium 3.4 L
Chloride 108 H
Carbon Dioxide 17 L
BUN 76 H
Creatinine 4.9 H*
Glucose 148 H
Calcium 8.6
Vital Signs:
Vital Signs
Temp Pulse Resp BP Pulse Ox
98.2 F 72 17 144/86 95
04/27/24 07:34 04/27/24 07:52 04/27/24 07:34 04/27/24 07:52 04/27/24 07:34
I&O
04/26/24 04/27/24 04/28/24
06:59 06:59 06:59
Intake Total 2039 / 2039 120 / 120
Output Total 475 / 475 200 / 200
Balance 1565 / 1565 -80 / -80
Review of Systems
-
History Source: Patient
All other systems: Reviewed and negative
Physical Exam
-
General: No Apparent Distress; Negative Respiratory Distress
HEENT: PERRLA
Respiratory: Clear to Auscultation; Negative Wheezes
GI: Soft and Nontender
Musculoskeletal: Edema, Right Lower Extrem and Edema, Left Lower Extrem
Neuro: AO x 3
Psych: Calm
Data Reviewed
-
Diagnostic Radiology: Report Reviewed by me
Labs: Labs Reviewed by me
[2024-04-27 10:52] VITALS: BP 130/65
--- NOTE | 2024-04-27 14:33 | W.PN.CD ---
Today's Communication / Plan
-
trend tele
remains off of sotalol
Impression / Plan
-
Robinson Yan is a 69-year-old man with prior cryptogenic stroke, hypertension, nonischemic cardiomyopathy (recovered EF), sustained VT status post ICD, and CKD who presented to ER with acute renal failure discovered on outpatient labs.
Cardiology was consulted for his history of cardiomyopathy and VT.
Acute renal failure
-Severe exacerbation/progression of chronic kidney disease. Follows with Dr. Plata and [facility] nephrology
-Nephrology consulted: may need biopsy and HD
Sustained VT, status post ICD
-Device interrogations for past 1 year were reviewed and show no episodes of VT.
-Stopped sotalol due to acute renal failure
-Increased carvedilol to 25 mg twice daily
-If he has recurrent VT we can add amiodarone
Nonischemic cardiomyopathy with improved EF, chronic
-TTE 04/24/2024: LVEF 55-60%, no valvular disease
-He is volume overloaded with elevated NT proBNP, but this is most likely due to his renal failure
-Defer diuresis to nephrology
-Increase carvedilol as above
-Continue hydralazine at 50 mg 3 times daily (home dose). This may need to be decreased due to increasing beta-yokasta
-Eplerenone stopped for renal failure
Prior CVA
-He reports not taking aspirin at home. Unclear why.
-Continue statin
Hypertension
-Currently well-controlled. Monitor BPs with increased carvedilol
Physical Exam
Vital Signs/Labs
Vital Signs
Temp Pulse Resp BP Pulse Ox
97.9 F 69 18 130/65 96
04/27/24 10:52 04/27/24 10:52 04/27/24 10:52 04/27/24 10:52 04/27/24 10:52
04/26/24 04/27/24 04/28/24
06:59 06:59 06:59
Actual Weight 94.256 kg 94.357 kg
04/25/24 06:42
04/27/24 06:52
04/23/24
21:50
Nmo-D-Izbmpwuddno Pept 2370
Physical Exam
Constitutional: No acute distress and Comfortable
EENT: Moist mucous membranes
Cardiovascular: Rhythm & rate is regular, Systolic murmur absent, Pedal edema present and JVD present
Respiratory: Respiratory effort normal and Lungs clear to auscul.
Neuro/Psych: AO x 3
Data Reviewed
-
Date of Service: April 27, 2024
EKG: Other (Tele: SR, occasional A pacing, occasional PVC's)
Labs: Labs Reviewed by me
[2024-04-27 15:22] VITALS: BP 149/87
--- NOTE | 2024-04-27 15:45 | W.PN.NEPH.PH ---
Today's Communication / Plan
-
Kidney biopsy Sunday continue steroids convert to p.o. on Sunday
Assessment/Plan
-
Assessment
Nephrotic range proteinuria
SANTOS progressive
Hypokalemia
Metabolic acidosis
Edema/anasarca
hypertension
Pacemaker
History cryptogenic stroke
Plan
Discussed with patient at length
plan for kidney biopsy Sunday
Lasix for edema management
Crestor max dose 10 mg daily given GFR
Long discussion about renal prognosis. Patient does agree to start IV steroids.
#3 of Solu-Medrol 1 g daily x 3 days.
Responded to sodium bicarb drip. Will discontinue.
Restart bicarbonate tablets.
Discussed the dialysis again at length and her renal function continues to decline anticipate a permacath placement on Sunday with dialysis.
Agree to start outpatient placement.
Ultimately the patient would be a good candidate for peritoneal dialysis that could be done as an outpatient.
Will start him on 60 mg of p.o. prednisone for now and will ultimately need to be on a Bactrim 3 times a week if we decide to continue prednisone pending biopsy.
Will need PPI also on prednisone on discharge
-
-
Date of Service: April 27, 2024
CC / HPI / ROS
-
Chief Complaint:
Acute kidney injury
History of Present Illness:
Presents with edema and worsening renal function and proteinuria
Review of Systems:
No chest pain or shortness of breath
Labs
-
Labs:
WBC 6.8 10^3/uL (4.8-10.8) 04/25/24 06:42
RBC 2.77 10^6/uL (4.70-6.10) L 04/25/24 06:42
Hgb 9.1 g/dL (13.0-18.0) L 04/25/24 06:42
Hct 25.6 % (39.0-52.0) L 04/25/24 06:42
Plt Count 152 10^3/uL (130-400) 04/25/24 06:42
Sodium 136 mmol/L (135-145) 04/27/24 06:52
Potassium 3.4 mmol/L (3.5-5.1) L 04/27/24 06:52
Chloride 108 mmol/L (98-107) H 04/27/24 06:52
Carbon Dioxide 17 mmol/L (22-30) L 04/27/24 06:52
BUN 76 mg/dl (9-20) H 04/27/24 06:52
Creatinine 4.9 mg/dL (0.7-1.3) H* 04/27/24 06:52
eGFR 12.25 04/27/24 06:52
Glucose 148 mg/dl (70-99) H 04/27/24 06:52
Calcium 8.6 mg/dl (8.4-10.2) 04/27/24 06:52
Phosphorus 7.9 mg/dl (2.5-4.5) H 04/25/24 06:42
Vdt-A-Jdkqpnvtjat Pept 2370 pg/ml 04/23/24 21:50
Albumin 2.2 g/dl (3.5-5.0) L 04/25/24 06:42
Physical Exam
-
Vital Signs:
Vital Signs
Temp Pulse Resp BP Pulse Ox
97.7 F 80 16 149/87 95
04/27/24 15:22 04/27/24 15:22 04/27/24 15:22 04/27/24 15:22 04/27/24 15:22
Respiratory:: Bilateral: CTA
Lung Excursion:: Normal
Abdomen:: Soft
Bowel Sounds:: Normal
Extremity Edema:: +1: Bilateral:
Escudero Catheter: No
[2024-04-27] MEDS: SODIUM BICARBONATE IV (16:33)
[2024-04-27] MEDS: SODIUM BICARBONATE 1300 MG PO ×2 (16:41→23:04)
[2024-04-27] MEDS: CRESTOR 10 MG PO (18:00)
[2024-04-27 18:52] LABS: 24 Hour Urine Total Volume Random mL; Urine Collection Length Random hr; Urine Free Kappa Light Chains 237.98 mg/L (0.00-32.90); Urine Free Lambda Light Chains 155.05 mg/L (0.00-3.79)
[2024-04-27 19:00] VITALS: BP 150/81
[2024-04-27 23:00] VITALS: BP 129/73
[2024-04-28] VITALS (11 sets, daily range): BP systolic 68–161; BP diastolic 71–93; BMI 29.2
[2024-04-28 06:54] LABS: INR 0.99; PT 13.4 Sec (11.4-14.6)
[2024-04-28 07:16] LABS: % Basophils 0.1 % (0-2); % Immature Granulocytes 0.7 % (0-0.5); % Monocytes 2.5 % (1.7-9.3); % Neutrophils 92.7 % (42.2-75.2); Absolute Immature Granulocytes 0.1 10^3/uL (0-0.05); Absolute Lymphocytes 0.6 10^3/uL (1.2-3.4); Absolute Monocytes 0.4 10^3/uL (0.1-0.6); Absolute Neutrophils 14.9 10^3/uL (1.4-6.5); Hematocrit 25.9 % (39.0-52.0); Hemoglobin 9.4 g/dL (13.0-18.0); Mean Corp Hgb Conc. 36.3 g/dL (33.0-37.0); Mean Corpuscular Hgb 32.2 pg (27.0-31.0); Mean Corpuscular Volume 88.7 fL (80.0-94.0); Nucleated Red Blood Cells % 0 % (-); Platelet Count 204 10^3/uL (130-400); Red Blood Cell Count 2.92 10^6/uL (4.70-6.10); Red Cell Dist. Width 13.3 % (11.5-14.5); White Blood Cell Count 16.1 10^3/uL (4.8-10.8)
[2024-04-28] MEDS: SPIRIVA RESPIMAT 2.5 MCG 2 PUFF INH (07:17)
[2024-04-28] MEDS: SYMBICORT 160/4.5 MCG INHALER 2 PUFF INH ×2 (07:17→19:25)
[2024-04-28 07:29] LABS: Blood Urea Nitrogen 88 mg/dl (9-20); Calcium 8.4 mg/dl (8.4-10.2); Carbon Dioxide 20 mmol/L (22-30); Chloride 107 mmol/L (98-107); Estimated Creatinine Clearance 16 ml/min; Glucose 127 mg/dl (70-99); Potassium 3.4 mmol/L (3.5-5.1); Sodium 136 mmol/L (135-145); eGFR 12.25
[2024-04-28] MEDS: DELTASONE 60 MG PO (08:46)
[2024-04-28] MEDS: B COMPLEX w/VITAMIN C 1 CAPLET PO (08:48)
[2024-04-28] MEDS: APRESOLINE 50 MG PO ×3 (08:48→21:47)
[2024-04-28] MEDS: VITAMIN C 1000 MG PO (08:48)
[2024-04-28] MEDS: VITAMIN D3 (cholecalciferol) 50 MCG PO (08:48)
[2024-04-28] MEDS: SODIUM BICARBONATE 1300 MG PO ×3 (08:48→21:46)
[2024-04-28] MEDS: COREG 25 MG PO (08:49)
--- NOTE | 2024-04-28 09:24 | W.PN.HOSP.TC ---
Today's Communication/Plan
-
NPO for renal biopsy today
CM consult to plan for outpatient HD
Assessment / Plan
Assessment / Plan
Mr. Robinson Yan is a 69 yo man with hx cryptogenic CVA, essential HTN, nonishcemic cardiomyopathy with recovered EF, VT s/p AICD sent to the ER from nephrology clinic for abnormal outpatient labs with elevated creatinine.
Patient has a history of anginal immune complex glomerulonephritis diagnosed 13 years ago. He declined steroids at this time, lost to follow up then referred to Renal Clinic with creatinine 1.6 in October 2023. Proteinuria > 19G. He has had
significant increase in creatinine since then prompting ER visit and admission.
Renal US:
IMPRESSION:
Normal unenhanced appearance of both kidneys and the urinary bladder.
Contracted gallbladder with no evidence for calcified gallstones.
Mild fatty infiltration of the liver with no focal hepatic lesion.
Moderate to severe vascular calcification with no aortic aneurysm.
Numerous colonic diverticula with no CT evidence for diverticulitis.
Moderate bilateral subcutaneous edema from the visualized lower lateral chest wall through the proximal thighs.
Acute Renal Failure with significant progression over past 4-6 months
Hx Anginal Immune Complex Glomerulonephritis
Nephrotic Proteinuria
+ Casts
referred to ED from Nephrology at [facility] for abnormal labs out patient
- Admitted to telemetry
- renal US without hydronephrosis, + casts and 4+ albumin
- Renal consult appreciated
- plan for kidney biopsy today
- s/p 3 days pulse steroids, now on oral
- Lasix stopped
- sodium bicarb per renal
-patient understands he may need dialysis - CM consult
Hx CVA --> *hold aspirin pre-biopsy (confirmed with IR)
#essential hypertension
- continue carvedilol and hydralazine
#hypercholesterolemia
- continue rosuvastatin
#nonischemic cardiomyopathy
- hold FLIGHT PURSER eplerenone
- hold Lasix
-continue carvedilol (dose increased)
- appreciate Cardiology consult
#COPD
- continue albuterol
#Hx ventricular tachycardia s/p dual ICD
EKG: Atrial-paced rhythm
PROLONGED QT
- hold Sotalol in setting of renal failure
-appreciate Cardiology
Code status: full code
DVT prophylaxis: SCDs, patient ambulating
51 minutes spent on patient care
Anticipated Discharge: > 48 hours
Subjective/Interval History
-
Date of Service: April 28, 2024
feeling okay
hoping to get out by end of week
NPO for renal biopsy
Objective Data
-
Labs:
Laboratory Results
04/28/24
06:23
WBC 16.1 H
Hgb 9.4 L
Hct 25.9 L
Plt Count 204 D
PT 13.4
INR 0.99
Sodium 136
Potassium 3.4 L
Chloride 107
Carbon Dioxide 20 L
BUN 88 H
Creatinine 4.9 H*
Glucose 127 H
Calcium 8.4
Vital Signs:
Vital Signs
Temp Pulse Resp BP Pulse Ox
98.5 F 66 14 161/93 95
04/28/24 07:05 04/28/24 08:48 04/28/24 07:20 04/28/24 08:48 04/28/24 07:20
I&O
04/27/24 04/28/24 04/29/24
06:59 06:59 06:59
Intake Total 120 / 120 1109
Output Total 200 / 200
Balance -80 / -80 1109
Review of Systems
-
History Source: Patient
All other systems: Reviewed and negative
Physical Exam
-
General: No Apparent Distress; Negative Respiratory Distress
HEENT: PERRLA
Respiratory: Clear to Auscultation; Negative Wheezes
GI: Soft and Nontender
Musculoskeletal: Edema, Right Lower Extrem and Edema, Left Lower Extrem
Neuro: AO x 3
Psych: Calm
Data Reviewed
-
Diagnostic Radiology: Report Reviewed by me
Labs: Labs Reviewed by me
--- NOTE | 2024-04-28 09:34 | W.PN.CD ---
Today's Communication / Plan
-
OK to shower from my perspective
Pt has not tolerated Coreg 25 bib in the past (several years ago) => he prefers to try Coreg 12.5 TID
If CrCl stays 10-29 mL/min then for VT I could go to sotalol 80 mg q36-48 hrs and we may chose to do that
Ablation and Amio are also choices for his VT
Impression / Plan
-
Robinson Yan is a 69-year-old man with prior cryptogenic stroke, hypertension, nonischemic cardiomyopathy (recovered EF), sustained VT status post ICD, and CKD who presented to ER with acute renal failure discovered on outpatient labs.
Cardiology was consulted for his history of cardiomyopathy and VT.
Acute renal failure
-Severe exacerbation/progression of chronic kidney disease. Follows with Dr. Plata and [facility] nephrology
-Nephrology consulted: may need biopsy and HD
Sustained VT, status post ICD
-Device interrogations for past 3+ year were reviewed and show no episodes of VT on suppressive sotalol + Coreg
-Pt has not tolerated Coreg 25 bib in the past (several years ago) => he prefers to try Coreg 12.5 TID
-If CrCl stays 10-29 mL/min then for VT I could go to sotalol 80 mg q36-48 hrs and we may chose to do that
-Ablation and Amio are also choices for his VT
Nonischemic cardiomyopathy with improved EF, chronic. EF 29% at cath 10/2018 with normal coronaries. EF by echo in 2019 was 40-45%
-TTE 04/24/2024: LVEF 55-60%, no valvular disease
-He is volume overloaded with elevated NT proBNP, but this is most likely due to his renal failure
-Defer diuresis to nephrology
-Increased carvedilol as above
-Continue hydralazine at 50 mg 3 times daily (home dose). This may need to be decreased due to increasing beta-yokasta
-Eplerenone stopped for renal failure
Prior CVA
-He reports not taking aspirin at home. Unclear why.
-Continue statin
-Afib has never been seen on his dual ICD
Aspirin indication is prior CVA (visual field cut and + CT) and not cardiac indication
Hypertension
-Currently well-controlled. Monitor BPs with increased carvedilol
Subjective: No CP or dyspnea
Physical Exam
Vital Signs/Labs
Vital Signs
Temp Pulse Resp BP Pulse Ox
98.5 F 66 14 161/93 95
04/28/24 07:05 04/28/24 08:48 04/28/24 07:20 04/28/24 08:48 04/28/24 07:20
04/27/24 04/28/24 04/29/24
06:59 06:59 06:59
Actual Weight 94.357 kg 95.028 kg
04/28/24 06:23
04/28/24 06:23
PT 13.4 Sec (11.4-14.6) 04/28/24 06:23
INR 0.99 04/28/24 06:23
04/23/24
21:50
Vcz-G-Lnaxlumeftn Pept 2370
Physical Exam
Constitutional: No acute distress
EENT: Anicteric
Cardiovascular: Rhythm & rate is regular and Pedal edema is absent
Respiratory: Respiratory effort normal and Lungs clear to auscul.
GI: Distention absent
Neuro/Psych: AO x 3
Data Reviewed
-
Date of Service: April 28, 2024
[2024-04-28 13:13] LABS: Magnesium 1.6 mg/dl (1.6-2.3); Phosphorus 6.3 mg/dl (2.5-4.5)
--- NOTE | 2024-04-28 14:05 | PTCARENOTE ---
Received pt from [facility] via stretcher. Pt educated on bed rest. Pt pulled over to bed with assist x2. RL back site assessed, small amount of dried drainage observed, dressing CDI. Vitals obtained. Will cont to monitor.
--- NOTE | 2024-04-28 15:11 | W.PN.NEPH.PH ---
Today's Communication / Plan
-
see plan
Assessment/Plan
-
Assessment
Nephrotic range proteinuria
SANTOS progressive
Hypokalemia
Metabolic acidosis
Edema/anasarca
hypertension
Pacemaker
History cryptogenic stroke
Plan
cr cont to rise at 4.9, overall slightly decreased UOP subjectively , not measured
s/p K biopsy today , nephrotic range proteinuria , could not measure on random sample, was 19gm/gm of cr in Nov
paraprotein, serologies w/u neg in Nov
completed pulse steroids and on PO steroid now, will ultimately need to be on a Bactrim 3 times a week
will plan HD tomorrow , IR to place tunneled catheter
prn Lasix for edema management
Crestor max dose 10 mg daily given GFR
met acidosis stable on po bicarb
Will need PPI also on prednisone on discharge
CM to work on getting HD unit set up
d/w in detail with pt and
-
-
Date of Service: April 28, 2024
CC / HPI / ROS
-
Chief Complaint:
Acute kidney injury
History of Present Illness:
Presents with edema and worsening renal function and proteinuria
cr up at 4.9, Bp stable
BUN up at 88, k low 3.4
Review of Systems:
no hematuria
No chest pain or shortness of breath
Labs
-
Labs:
WBC 16.1 10^3/uL (4.8-10.8) H 04/28/24 06:23
RBC 2.92 10^6/uL (4.70-6.10) L 04/28/24 06:23
Plt Count 204 10^3/uL (130-400) D 04/28/24 06:23
Sodium 136 mmol/L (135-145) 04/28/24 06:23
Potassium 3.4 mmol/L (3.5-5.1) L 04/28/24 06:23
Chloride 107 mmol/L (98-107) 04/28/24 06:23
Carbon Dioxide 20 mmol/L (22-30) L 04/28/24 06:23
BUN 88 mg/dl (9-20) H 04/28/24 06:23
Creatinine 4.9 mg/dL (0.7-1.3) H* 04/28/24 06:23
eGFR 12.25 04/28/24 06:23
Glucose 127 mg/dl (70-99) H 04/28/24 06:23
Calcium 8.4 mg/dl (8.4-10.2) 04/28/24 06:23
Phosphorus 6.3 mg/dl (2.5-4.5) H 04/28/24 06:23
Uia-H-Gfacbjmumkf Pept 2370 pg/ml 04/23/24 21:50
Albumin 2.2 g/dl (3.5-5.0) L 04/25/24 06:42
Physical Exam
-
Vital Signs:
Vital Signs
Temp Pulse Resp BP Pulse Ox
97.6 F 65 18 150/86 97
04/28/24 14:29 04/28/24 14:29 04/28/24 14:29 04/28/24 14:29 04/28/24 14:29
Cardiovascular:: Regular rate and rhythm
Respiratory:: Bilateral: CTA
Lung Excursion:: Normal
Abdomen:: Soft
Bowel Sounds:: Normal
Extremity Edema:: +1: Bilateral:
Escudero Catheter: No
[2024-04-28] MEDS: COREG 12.5 MG PO ×2 (15:19→21:46)
[2024-04-28] MEDS: KCL 20 MEQ PO (16:01)
--- NOTE | 2024-04-28 16:35 | CM ---
Received consult that patient will need outpatient dialysis. Will discuss options with patient and get all clinical to requested facility.
Plan: Case management will continue to follow and assist with discharge planning. Home with dialysis.
[2024-04-28] MEDS: CRESTOR 10 MG PO (17:39)
[2024-04-28] MEDS: PROTONIX 40 MG PO (17:50)
[2024-04-29] VITALS (13 sets, daily range): BP systolic 53–158; BP diastolic 68–91; BMI 30.3
[2024-04-29 01:17] LABS: Hematocrit 24.1 % (39.0-52.0); Hemoglobin 8.7 g/dL (13.0-18.0)
[2024-04-29 06:31] LABS: Hematocrit 25.6 % (39.0-52.0); Mean Corp Hgb Conc. 35.2 g/dL (33.0-37.0); Mean Corpuscular Hgb 31.6 pg (27.0-31.0); Mean Corpuscular Volume 89.8 fL (80.0-94.0); Mean Platelet Volume 9.9 fL (7.4-10.4); Platelet Count 204 10^3/uL (130-400); Red Blood Cell Count 2.85 10^6/uL (4.70-6.10); Red Cell Dist. Width 13.3 % (11.5-14.5); White Blood Cell Count 12.3 10^3/uL (4.8-10.8)
[2024-04-29 06:55] LABS: Blood Urea Nitrogen 96 mg/dl (9-20); Calcium 8.3 mg/dl (8.4-10.2); Carbon Dioxide 22 mmol/L (22-30); Chloride 109 mmol/L (98-107); Estimated Creatinine Clearance 16 ml/min; Glucose 104 mg/dl (70-99); Potassium 3.2 mmol/L (3.5-5.1); Sodium 140 mmol/L (135-145); eGFR 11.41
[2024-04-29] MEDS: SPIRIVA RESPIMAT 2.5 MCG 2 PUFF INH (07:35)
[2024-04-29] MEDS: SYMBICORT 160/4.5 MCG INHALER 2 PUFF INH (07:36)
[2024-04-29] MEDS: SODIUM BICARBONATE 1300 MG PO ×3 (09:13→21:04)
[2024-04-29] MEDS: B COMPLEX w/VITAMIN C 1 CAPLET PO (09:13)
[2024-04-29] MEDS: PROTONIX 40 MG PO (09:13)
[2024-04-29] MEDS: DELTASONE 60 MG PO (09:13)
[2024-04-29] MEDS: APRESOLINE 50 MG PO ×3 (09:13→21:04)
[2024-04-29] MEDS: COREG 12.5 MG PO ×3 (09:14→21:04)
[2024-04-29] MEDS: VITAMIN D3 (cholecalciferol) 50 MCG PO (09:14)
[2024-04-29] MEDS: VITAMIN C 1000 MG PO (09:14)
[2024-04-29] MEDS: SODIUM BICARBONATE PO (09:16)
--- NOTE | 2024-04-29 09:55 | W.PN.HOSP.TC ---
Today's Communication/Plan
-
For permacath insertion today
Assessment / Plan
Assessment / Plan
Mr. Robinson Yan is a 69 yo man with hx cryptogenic CVA, essential HTN, nonishcemic cardiomyopathy with recovered EF, VT s/p AICD sent to the ER from nephrology clinic for abnormal outpatient labs with elevated creatinine.
Patient has a history of anginal immune complex glomerulonephritis diagnosed 13 years ago. He declined steroids at this time, lost to follow up then referred to Renal Clinic with creatinine 1.6 in October 2023. Proteinuria > 19G. He has had
significant increase in creatinine since then prompting ER visit and admission.
Acute Renal Failure with significant progression over past 4-6 months
Hx Anginal Immune Complex Glomerulonephritis
Nephrotic Proteinuria
+ Casts
- referred to ED from Nephrology at [place] [facility] for abnormal labs out patient
- renal US without hydronephrosis, + casts and 4+ albumin
- appreciate nephrology input, status post kidney biopsy 04/28�results pending
- s/p 3 days pulse steroids, now on oral steroids
- s/p lasix, continue sodium bicarb per renal
- for permacath insertion 04/29 for dialysis
Hx CVA --> resume aspirin
#essential hypertension
- continue carvedilol and hydralazine
#hypercholesterolemia
- continue rosuvastatin
#nonischemic cardiomyopathy
- hold CABINETMAKER MAINTENANCE eplerenone
- hold Lasix
- continue carvedilol (dose increased)
- appreciate Cardiology consult
#COPD
- continue albuterol
#Hx ventricular tachycardia s/p dual ICD
EKG: Atrial-paced rhythm
PROLONGED QT
-hold Sotalol in setting of renal failure
-appreciate Cardiology
DVT prophylaxis�SCDs, patient ambulating
Full code
Total time spent to see the patient on the floor, examine the patient, review data and lab results, discuss treatment plan with patient, nursing staff around 38 minutes.
Physical Exam
General: No acute distress
HEENT: Normocephalic, Atraumatic, EOMI, MMM
Respiratory: Clear to Auscultation bilaterally
Cardiac: Normal S1/S2, Regular Rate and Rhythm
GI: Soft, Nontender, Nondistended, Normal Bowel Sounds
Extremities: No Clubbing, Cyanosis, or Edema
Neuro: Nonfocal/Grossly Intact
Psych: Calm, Cooperative
Derm: No Visible lesions
Anticipated Discharge: > 48 hours
Subjective/Interval History
-
Date of Service: April 29, 2024
Patient denies pain. No shortness of breath, no nausea, no vomiting. No fever. He is urinating.
Objective Data
-
Labs:
Laboratory Results
04/29/24 04/29/24
01:00 05:39
WBC 12.3 H
Hgb 8.7 L 9.0 L
Hct 24.1 L 25.6 L
Plt Count 204
Sodium 140
Potassium 3.2 L
Chloride 109 H
Carbon Dioxide 22
BUN 96 H
Creatinine 5.2 H*
Glucose 104 H
Calcium 8.3 L
Vital Signs:
Vital Signs
Temp Pulse Resp BP Pulse Ox
98.3 F 89 18 151/89 97
04/29/24 07:19 04/29/24 07:55 04/29/24 07:55 04/29/24 07:19 04/29/24 07:55
I&O
04/28/24 04/29/24 04/30/24
06:59 06:59 06:59
Intake Total 1110 / 1110 480 / 480
Balance 1110 / 1110 480 / 480
[2024-04-29 10:52] LABS: Magnesium 1.6 mg/dl (1.6-2.3)
[2024-04-29] MEDS: KCL 40 MEQ PO (11:07)
--- NOTE | 2024-04-29 11:10 | W.PN.CD ---
Today's Communication / Plan
-
Watch on tele
K+ is being repleted
Impression / Plan
-
Robinson Yan is a 69-year-old man with prior cryptogenic stroke, hypertension, nonischemic cardiomyopathy (recovered EF), sustained VT status post ICD, and CKD who presented to ER with acute renal failure discovered on outpatient labs.
Cardiology was consulted for his history of cardiomyopathy and VT.
Acute renal failure
- Now s/p biopsy
- HD is planned
Hypokalemia
- Per nephrology and medicine
Hx of prior sustained VT, status post ICD
- I am seeing more PVCs and a few couplets on tele as sotalol washes out
- No treated VT for more than 3 yrs on sotalol
- Trying Coreg 12.5 TID. In past 25 BID not well tolerated
- Wont use sotalol after dialysis
- Ablation OR Amio will be pursued if Coreg cannot control VT
Nonischemic cardiomyopathy with improved EF, chronic.
- EF 29% at cath 10/2018 with normal coronaries.
- EF by echo in 2019 was 40-45%
- LVEF 04/24/2024: LVEF 55-60%, no valvular disease
- Volume control per nephrology
- Heart failure has not been an active problem
Prior CVA
- He reports not taking aspirin at home. Unclear why.
- Continue statin (rosuvastatin 10 mg max with ESRD)
- Afib has never been seen on his dual ICD
- Back on ASA
- Aspirin indication is prior CVA (visual field cut and + CT) and not cardiac indication
Hypertension
- Per nephrology
Subjective: No CP or dyspnea
Physical Exam
Vital Signs/Labs
Vital Signs
Temp Pulse Resp BP Pulse Ox
98.3 F 89 18 151/89 97
04/29/24 07:19 04/29/24 07:55 04/29/24 07:55 04/29/24 07:19 04/29/24 07:55
04/28/24 04/29/24 04/30/24
06:59 06:59 06:59
Actual Weight 95.028 kg 98.611 kg
04/29/24 05:39
04/29/24 05:39
PT 13.4 Sec (11.4-14.6) 04/28/24 06:23
INR 0.99 04/28/24 06:23
Magnesium 1.6 mg/dl (1.6-2.3) 04/29/24 05:39
04/23/24
21:50
Cuz-H-Exbeigxqbbz Pept 2370
Physical Exam
Constitutional: No acute distress
Cardiovascular: Rhythm & rate is regular and Pedal edema is absent
Respiratory: Respiratory effort normal and Lungs clear to auscul.
GI: Soft and Distention absent
Data Reviewed
-
Date of Service: April 29, 2024
[2024-04-29] MEDS: ANCEF 10 IV (11:53)
[2024-04-29] MEDS: MANNITOL 25% 12.5 GRAMS IV ×2 (14:32→15:32)
[2024-04-29] MEDS: FLEXBUMIN 25% FOR HEMODIALYSIS 12.5 GRAMS IV ×2 (14:33→15:33)
[2024-04-29] MEDS: RETACRIT 3000 UNITS IV (15:33)
[2024-04-29 15:57] LABS: Hepatitis B Surface Antigen Negative (Negative)
[2024-04-29 16:15] LABS: Hepatitis B Core Ab, Total Negative (Negative); Hepatitis C Antibody Negative (Negative)
[2024-04-29] MEDS: HEPARIN 4300 UNITS INTRACATH (16:41)
--- NOTE | 2024-04-29 16:58 | W.PN.NEPH.HD ---
Assessment
-
pt seen during HD
vitals stable
UF as tolerated
CVC functions fine
next HD tomorrow
CM looking for UNit placement, pt wishes MWF schedule
Progress Note - Hemodialysis
-
Date of Service: April 29, 2024
Duration: 15 minutes and 2 hours
Potassium Bath: 3
Calcium Bath: 2.5
Opti-Dialyzer: 160
Ultrafiltration: Other (0.5kg)
Blood Flow: 250
Dialysate Flow: Other (500)
Heparin: no
EPO: 3000
[2024-04-29] MEDS: CRESTOR 10 MG PO (17:30)
[2024-04-29] MEDS: SYMBICORT 160/4.5 MCG INHALER INH (19:34)
[2024-04-30] VITALS (80 sets, daily range): BP systolic 75–137; BP diastolic 40–118; BMI 29.8
--- NOTE | 2024-04-30 00:11 | PTCARENOTE ---
Pt reports kael bloody bowel movement w/lightheadedness. Flushed BM at first, RN observed kael bloody sediment mixed w/toilet water. Instructed not to get OOB w/assist, verbalizes understanding. BP after episode 118/67. SCIENCE EDUCATION PROFESSOR covering house
contacted regarding episode, electronic orders received to draw CBC.
[2024-04-30 00:38] LABS: Hematocrit 16.1 % (39.0-52.0); Hemoglobin 5.9 g/dL (13.0-18.0); Mean Corp Hgb Conc. 36.6 g/dL (33.0-37.0); Mean Corpuscular Hgb 32.6 pg (27.0-31.0); Mean Platelet Volume 9.9 fL (7.4-10.4); Platelet Count 122 10^3/uL (130-400); Red Blood Cell Count 1.81 10^6/uL (4.70-6.10); Red Cell Dist. Width 13.4 % (11.5-14.5); White Blood Cell Count 12.6 10^3/uL (4.8-10.8)
--- NOTE | 2024-04-30 00:58 | PTCARENOTE ---
Critical Hgb (5.9) communicated to PRECISION DANCER covering house. Type and screen drawn, consent for blood products obtained by PRECISION DANCER at bedside. Pt updated on plan of care. Awaiting lab results to send for blood products.
--- NOTE | 2024-04-30 00:59 | W.PN.UPDATE ---
Update Note
Progress Note Update
RN reported patient had bloody BM, which patient flushed but RN noted kael bloody sediment mixed with toilet water, patient stated lightheadedness BP prior to event 123/63 HR 60's, after the event 118/67. CBC ordered. hgb 5.9, Patient oriented x3,
stated feeling tired, blood consent obtained, will order type and screen, 1 unit of PRBC, Hematest stool. HD cath was heparinized today.
another liquid burgundy stool noted RN approximated 500 CC, will order 1 more unit PRBC, IV Protonix 40mg IV, GI Consult.
VS 91/48 65, 18, 98.0, 95% RA
Repeat in 15 minutes 121/61, 18, 65, 95%
GI Dr. Consulted urgent, recommended CT angio after discussing with Herb Doctor.
Rapid response was called, then it was code 9. RN reports patient had a vasovagal episode.
Called sheet metal superintendent, CT Angio with contrast stat ordered
Patient Ox3, conversant while transferring down to CT scan
Transfer patient to ICU after CT scan. Hospitalist aware, ICU DRINK BOX MECHANIC aware.
Protonix IV drip, NPO, will hold ASA, prednisone
RN reported Hgb 5.3 will order [address] Angio report send to GI specialist.
Called spouse x4 unable to reach, left voice message with call back number. no call back yet.
--- NOTE | 2024-04-30 05:02 | PTCARENOTE ---
Pt requesting to go to BR, 'rumbling in stomach'. Instructed not to get OOB at this time, assisted w/bedpan. Pt passed large amount (approx 500 mL) burgundy liquid via rectum. 1st unit of PRBCs still transfusing. THERMAL CUTTER HAND covering house contacted
regarding event.
--- NOTE | 2024-04-30 05:29 | PTCARENOTE ---
Pt with another burgundy liquid BM, 400 mL measurable amount. Order for 2nd unit of PRBCs to be transfused and orders to transfer to IMU
--- NOTE | 2024-04-30 06:07 | RR ---
A Rapid Response was called on this patient, please see Rapid Response form.
RR initiated when the patient verbalized 'I don't feel right'. Verbalizes dizziness/lightheadedness when laying flat. Pt then had deviated gaze, moaned deeply, and became flacid. Agonal breathing observed, no pulse palpated, and converted to code
9.
--- NOTE | 2024-04-30 06:13 | PTCARENOTE ---
Rapid Response and Code 9 called during blood transfusion. Converted to papers during emergency.
[2024-04-30 06:14] LABS: Hemoglobin 5.3 g/dL (13.0-18.0); Mean Corp Hgb Conc. 35.3 g/dL (33.0-37.0); Mean Corpuscular Hgb 32.3 pg (27.0-31.0); Mean Corpuscular Volume 91.5 fL (80.0-94.0); Mean Platelet Volume 10.4 fL (7.4-10.4); Platelet Count 104 10^3/uL (130-400); Red Blood Cell Count 1.64 10^6/uL (4.70-6.10); Red Cell Dist. Width 13.6 % (11.5-14.5); White Blood Cell Count 12.5 10^3/uL (4.8-10.8)
[2024-04-30 06:17] LABS: INR 1.47; PT 18.1 Sec (11.4-14.6)
--- NOTE | 2024-04-30 06:23 | PTCARENOTE ---
After rapid response initiated, pt then became unresponsive, moaned loudly, flacid. Large liquid burgundy stool observed. Agonal breathing observed. Couldn't not palpate carotid. CPR initiated and Code 9 called. After 2 rounds of CPR, pt then
with spontaneous breathing, pulse, and talking slowly. Providers, BLOCK PLACER, and code team at bedside. Transferred w/Nursing Activities Leader, RT, and TELEPHONE STATION REPAIRER to CT scan. Orders for ICU.
[2024-04-30 06:26] LABS: Blood Urea Nitrogen 105 mg/dl (9-20); Calcium 6.4 mg/dl (8.4-10.2); Carbon Dioxide 21 mmol/L (22-30); Chloride 112 mmol/L (98-107); Estimated Creatinine Clearance 20 ml/min; Glucose 187 mg/dl (70-99); Potassium 4.1 mmol/L (3.5-5.1); Sodium 141 mmol/L (135-145); eGFR 14.33
[2024-04-30 06:40] LABS: ALT (SGPT) 12 U/L (0-50); AST (SGOT) 15 U/L (17-59); Albumin < 1.0 g/dl (3.5-5.0); Alkaline Phosphatase 33 U/L (38-126); Total Bilirubin 0.2 mg/dl (0.2-1.3); Total Protein 2.7 g/dl (6.3-8.2)
[2024-04-30] MEDS: KCL 270 MEQ IV (06:47)
--- NOTE | 2024-04-30 06:48 | W.PN.UPDATE ---
Addendum entered and electronically signed by ALOK Lu 04/30/24 07:46:
Consulted Interventional Radiologist Dr. Edwards and Dr. Mahmood, colorectal surgeon and communicated CTA results.
Original Note:
Update Note
Progress Note Update
04/30/24
0541 Code 9 was called for patient. Initially rapid response was called which turned into a code. Patient was feeling unwell and had large bloody bowel movement. Briefly lost pulse with agonal breaths and CPR was initiated, blood was opened wide
and IVF open wide. No ACLS medications were administered because patient regained pulse shortly thereafter. Patient came to and was conversive, answered questions appropriately. Stated he 'felt more blood coming and needed to have another bowel
movement', appearance pale, SBP 120s. He was transported to Ctscan for CTangio abdomen/pelvis and then transferred to ICU. PRBCs ordered and continued transfusing, awaiting CTA results to be read by radiologist. Plan of care will be determined
based on Ctscan results. Dr. Adkins, hospitalist came to bedside for code and plan of care establish, case was discussed, and recommendations received. Dr. Garcia, wooden barrel mechanic updated on patient and current plan.
--- NOTE | 2024-04-30 07:00 | PTCARENOTE ---
report received from previous RN. Pt resting in bed, drowsy but arouses easily to voice. AAOX3. recalls events that happened overnight. Normal sinus rhythm/apaced on telemetry heart rate in 60s. pulses palpable. +1 edema in lower extremities. pt on
2L nasal cannula, sat 99%. lung sounds diminished in bases. hyperactive bowel sounds. no bowel movements since this morning during code. oliguric- reports urinated overnight. pt updated on plan of care.blood currently infusing at this time. protonix
gtt infusing per orders. pt called and he updated her on the events that happened overnight.
--- NOTE | 2024-04-30 07:00 | PTCARENOTE ---
Traveled with pt from CT scan to ICU room 3362,pt tolerated testing well.Pt transferred to ICU bed with several nurses,pt had been incontinent of large amt of maroon liquid stool,hygiene preformed and pt rolled for assessment without difficulty.VS
stable,no resp distress,no nausea,abd palp nontender,SR telemetry monitor,pt is alert and oriented,conversant.Blood transfusion maintained,report given to oncoming nurse.
[2024-04-30] MEDS: PROTONIX IV 40 MG IV (07:05)
--- NOTE | 2024-04-30 07:12 | W.PN.UPDATE ---
Update Note
Progress Note Update
CTA abd: IMPRESSION:
1. Large amount of INTRALUMINAL HEMORRHAGE in SIGMOID COLON and RECTUM with associated rectal distention.
2. Moderate to severe diverticulosis in the sigmoid colon.
3. No CTA evidence for active arterial extravasation into the lumen of the colon to suggest an acute active gastrointestinal bleed.
4. 5.1 cm ACUTE RIGHT RETROPERITONEAL HEMATOMA.
5. Severe mucosal hyperenhancement and submucosal edema throughout the stomach suggesting SEVERE GASTRITIS.
6. Severe calcific atherosclerotic plaque in the abdominal aorta and iliac arteries.
7. Moderate chronic bilateral renal disease.
8. Minimal ascites.
9. Severe diffuse gallbladder wall edema.
10. Moderate anasarca.
11. Severe multilevel lower lumbar discogenic degenerative disease.
Pt updated on result of no active bleed. Thinking back pt does tell me he has really bad indigestion feeling earlier in day.
Whole time in Ct scan pt was AAOx3. On arrival to ICU pt remained AAOx3 with stable vital signs.
called by other provider but did not answer phone
[2024-04-30] MEDS: PROTONIX 100 IV ×2 (07:26→17:03)
--- NOTE | 2024-04-30 07:27 | W.PN.UPDATE ---
Update Note
Progress Note Update
Episode of rectal bleeding, accompanied by brief decreased consciousness and loss of pulse, compressions briefly initiated. Hemoglobin has dropped from 9 yesterday morning to 5.3 this morning.
HR 67, BP 99/61.
CTA shows blood in sigmoid colon, but no extravasation of contrast.
CTA is more sensitive for extravasation of contrast than arteriogram, therefore risks of arteriogram outweigh the potential benefits, especially given his current creatinine clearance of 20.
Tiny right retroperitoneal hematoma, 9 mm in thickness, very common following renal biopsy (which he had 2 days ago). No intervention required.
[2024-04-30] MEDS: APRESOLINE PO (07:47)
[2024-04-30] MEDS: B COMPLEX w/VITAMIN C PO (07:47)
[2024-04-30] MEDS: COREG PO (07:48)
[2024-04-30] MEDS: SODIUM BICARBONATE PO (07:48)
[2024-04-30] MEDS: PROTONIX PO (07:48)
[2024-04-30] MEDS: VITAMIN D3 (cholecalciferol) PO (07:48)
[2024-04-30] MEDS: VITAMIN C PO (07:48)
[2024-04-30] MEDS: SPIRIVA RESPIMAT 2.5 MCG INH (07:55)
[2024-04-30] MEDS: SYMBICORT 160/4.5 MCG INHALER INH ×2 (07:55→19:29)
--- NOTE | 2024-04-30 08:24 | CON.GI ---
Addendum entered and electronically signed by Hammad Asencio MD 04/30/24 13:55:
The patient was seen and examined by me independently in collaboration with the nurse practitioner.
Past medical history/social history/medications/allergies/family history reviewed.
Lab data and imaging data reviewed.
69-year-old male past medical history as below including CKD requiring dialysis started yesterday. Prior to dialysis, he felt nauseous and afterwards he had some indigestion requiring Tums. He then started having profuse bright red blood per
rectum today which led to him to come to the emergency room. He was found to have hemoglobin as low as 5.9. Rapid response was required likely due to hypovolemia from bleeding. I was reach out to last night by the medicine team and recommended
stat CTA. This was done and showed intraluminal hemorrhage in the colon, diverticulosis, retroperitoneal hematoma, severe gastritis. No extravasation. Interventional radiology stated no role for intervention from their standpoint. Later in the
morning after initially son, patient was hypotensive and had another bloody bowel movement requiring pressors.
Differential diagnosis for GI bleed rapid upper GI bleed versus lower GI bleed such as diverticular. Continue PPI drip, n.p.o., trend hemoglobin, monitor blood pressure, transfuse as needed. Plan for emergent upper endoscopy today. Risk,
alternatives, benefits of upper endoscopy discussed with patient risks including but not limited to bleeding, infection, perforation. Patient was agreeable. See endoscopy notes for further details.
Extensive time in coordination of care the patient with medicine team, colorectal surgery team, anesthesia team.
Original Note:
Consultation
-
Date/Time Consultation Requested: 04/30/24 0640
Date/Time Consultation Performed: 04/30/24 0830
Requesting Provider: ALOK Chin
Performing Provider: ALOK Pickett, Sasha Asencio MD
Reason for Consultation: GI bleed
Medical History
Chief Complaint / HPI
Chief Complaint: rectal bleeding
History of Present Illness:
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 On admission noted with creat 4.1 with rise to
5.2 with start of HD 04/29. He has been seen by cardiology for CT and cardiomyopathy and now noted with rectal bleeding with red blood with initial 2 large volumes of red blood with drop in hbg from 9 on 04/29 to 5.3 and progressive increase in BUN to
105. He was code 9 alert with unresponsiveness, dizziness, and hypotension. Consult also placed to Colorectal surgery and IR. CT angio completed with large intraluminal hemorrhage in sigmoid and rectum with rectal distention, diverticulosis,
no CTA active art extravasation to suggest active GI bleed, also noted acute right retroperineal hematoma and severe gastritis. Pt was evaluated by Dr. Edwards holding on angio in setting of risk/benefit with renal disease. Also noted RP hematoma
9 mm likely following renal biopsy. no AC or NSAID prior to admission but was on Prednisone.
At this time patient admits to some nausea and GERD prior to bleeding but denies odynophagia, dysphagia, GERD, abdominal pain, chronic diarrhea, constipation or prior GI bleeding. No Hx EGD. Last colonoscopy 2012 with multiple adenomatous and
HP polyp with recommended 1 year follow up without return.
Past Medical History
Past Medical History: Arrhythmias (VT), COPD, CVA, HTN, Hypercholesterolemia, Renal Failure (anginal immune complex Glomerulonephritis, proteinuria ) and Other (non ischemic CM)
Past Surgical History: Cardiac (ICD) and Other (knee cyst removal)
Social History
Tobacco: Former Smoker (quit 2018)
Alcohol: Occasional
Drug: None
Personal:
Living: With Family
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
Family History
Family History: Other (parent with family hx colon polyps)
Allergies / Home Medications
Allergy/AdvReac Type Severity Reaction Status Date / Time
No Known Allergies Allergy Verified 04/23/24 19:45
�Medication �Instructions �Recorded
ascorbic acid (vitamin C) 500 mg 1,000 mg PO DAILY Supplement 10/18/18
tablet (Vitamin C)
vitamin B complex 1 tab PO DAILY Supplement 10/18/18
aspirin 81 mg tablet,delayed 81 mg PO DAILY #1 tab 10/19/18
release
albuterol sulfate 90 mcg/actuation 1 inh inhalation R Q4HPRN PRN sob 04/23/24
aerosol inhaler
carvedilol 25 mg tablet 12.5 mg PO BID Blood Pressure 04/23/24
cholecalciferol (vitamin D3) 50 50 mcg PO DAILY Supplement 04/23/24
mcg (2,000 unit) tablet (Vitamin
D3)
coenzyme Q10 100 mg capsule 100 mg PO DAILY Supplement 04/23/24
(CoQ-10)
eplerenone 25 mg tablet 25 mg PO DAILY Heart 04/23/24
Disease/Condition
fluticasone fur. 200 mcg-umeclid 1 inh inhalation R DAILY 04/23/24
62.5 mcg-vilant 25 mcg Lung/Breathing Issues
inhalat.powder (Trelegy Ellipta)
furosemide 20 mg tablet 20 mg PO DAILY Fluid 04/23/24
Retention/Swelling
hydralazine 50 mg tablet 50 mg PO TID Blood Pressure 04/23/24
omega-3 fatty acids-fish oil 684 1 cap PO DAILY Supplement 04/23/24
mg-1,200 mg capsule,delayed release
rosuvastatin 40 mg tablet 40 mg PO QPM High Cholesterol 04/23/24
sotalol 80 mg tablet 80 mg PO BID Arrhythmia 04/23/24
Review of Systems
-
History Source: Patient
Constitutional: Reports Fatigue
EENT: Reports No Symptoms
Respiratory: Reports No Symptoms
Cardiac: Reports No Symptoms
Abdomen/GI: Reports Nausea (with increased GERD )
: Reports Other (new HD 04/29 start )
Musculoskeletal: Reports No Symptoms
Skin: Reports No Symptoms
Neurological: Reports Dizzy, Weakness and Other
Endocrine: Reports No Symptoms
Hematologic/Lymphatic: Reports Bleeding
Vital Signs
Temp Pulse Resp BP Pulse Ox
98.0 F 63 18 94/62 100
04/30/24 07:34 04/30/24 07:34 04/30/24 07:34 04/30/24 07:30 04/30/24 07:42
Physical Exam
Exam
General: Other (pale appearing but awake and alert feeling better )
HEENT: Normocephalic and Anicteric
Respiratory: Clear
Cardiac: Regular Rhythm
GI: Soft, Non Tender and Non Distended
Rectal: Other (per staff bright red blood per rectum)
Musculoskeletal: No Clubbing and No Cyanosis
Skin: Warm and Dry
Neuro: Awake, Alert and AO x 3
Psych: Calm
Results
WBC Cancelled 04/30/24 06:00
Hgb Cancelled 04/30/24 06:00
Hct Cancelled 04/30/24 06:00
MCV Cancelled 04/30/24 06:00
Plt Count Cancelled 04/30/24 06:00
Absolute Neuts (auto) 14.9 10^3/uL (1.4-6.5) H 04/28/24 06:23
PT 18.1 Sec (11.4-14.6) H 04/30/24 05:50
INR 1.47 04/30/24 05:50
APTT 31.0 Sec (23.4-35.0) 04/30/24 05:50
Sodium 141 mmol/L (135-145) 04/30/24 05:50
Potassium 4.1 mmol/L (3.5-5.1) D 04/30/24 05:50
Chloride 112 mmol/L (98-107) H 04/30/24 05:50
Carbon Dioxide 21 mmol/L (22-30) L 04/30/24 05:50
BUN 105 mg/dl (9-20) H* 04/30/24 05:50
Creatinine 4.3 mg/dL (0.7-1.3) H* 04/30/24 05:50
Calcium 6.4 mg/dl (8.4-10.2) L* D 04/30/24 05:50
Total Bilirubin 0.2 mg/dl (0.2-1.3) 04/30/24 05:50
AST 15 U/L (17-59) L 04/30/24 05:50
ALT 12 U/L (0-50) 04/30/24 05:50
Alkaline Phosphatase 33 U/L (38-126) L 04/30/24 05:50
Hep B Core Total Ab Negative (Negative) 04/29/24 05:39
Hepatitis C Antibody Negative (Negative) 04/29/24 05:39
Diagnostic Image Results:
04/30/24 CT Abd/pelvis Angio W/wo Iv
1. Large amount of INTRALUMINAL HEMORRHAGE in SIGMOID COLON and RECTUM with associated rectal distention.
2. Moderate to severe diverticulosis in the sigmoid colon.
3. No CTA evidence for active arterial extravasation into the lumen of the colon to suggest an acute active gastrointestinal bleed.
4. 5.1 cm ACUTE RIGHT RETROPERITONEAL HEMATOMA.
5. Severe mucosal hyperenhancement and submucosal edema throughout the stomach suggesting SEVERE GASTRITIS.
6. Severe calcific atherosclerotic plaque in the abdominal aorta and iliac arteries.
7. Moderate chronic bilateral renal disease.
8. Minimal ascites.
9. Severe diffuse gallbladder wall edema.
10. Moderate anasarca.
11. Severe multilevel lower lumbar discogenic degenerative disease.
04/23/24 CT Abd/pel Without Iv Or Oral
Normal unenhanced appearance of both kidneys and the urinary bladder.
Contracted gallbladder with no evidence for calcified gallstones.
Mild fatty infiltration of the liver with no focal hepatic lesion.
Moderate to severe vascular calcification with no aortic aneurysm.
Numerous colonic diverticula with no CT evidence for diverticulitis.
Moderate bilateral subcutaneous edema from the visualized lower lateral chest wall through the proximal thighs.
Prior GI Procedures:
EGD:
none
Colonoscopy: 2012 [place] with multiple adenomatous and HP polyp with recommended 1 year follow up without return.
Assessment / Plan
-
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 On admission noted with creat 4.1 with rise to
5.2 with start of HD 04/29. He has been seen by cardiology for CT and cardiomyopathy and now noted with rectal bleeding with red blood with initial 2 large volumes of red blood with drop in hbg from 9 on 04/29 to 5.3 and progressive increase in BUN to
105. He was code 9 alert with unresponsiveness, dizziness, and hypotension. Consult also placed to Colorectal surgery and IR. CT angio completed with large intraluminal hemorrhage in sigmoid and rectum with rectal distention, diverticulosis,
no CTA active art extravasation to suggest active GI bleed, also noted acute right retroperineal hematoma and severe gastritis. Pt was evaluated by Dr. Edwards holding on angio in setting of risk/benefit with renal disease. Also noted RP hematoma
9 mm likely following renal biopsy. no AC or NSAID prior to admission but was on Prednisone.
-s/p code 9 with hypotension unresponsiveness requiring CPR 04/29
-GI bleed- CTA 04/30 with large intraluminal hemorrhoid but no extravasion
-anemia acute blood loss with hypovolemic shock
-severe gastritis per CT
-RP hematoma 5.[address] but noted [address] Edwards s/p renal bx
-ESRD with new start HD 04/29 with recent renal bx
-diverticulosis
-severe GB wall edema per CA
-mild coagulopathy
other med problems:
-hx colon polyp 2012 without follow up
-COPD
-VT -ICD
-CVA
PLAN:
etiology of bleeding related to lower source - diverticular bleed as painless, ischemic but no documented hypotension prior to episode, vs aggressive Upper GI bleed with rise in BUN/gastritis on imaging (on prednisone 60mg/potassium but was on PPI
daily) vs other
s/p CTA neg for extravasation with noted RP hematoma/gastritis/BG edema
completing 4th unit PRBC then recheck hbg
pending results possible EGD today vs AM with colonoscopy
NPO
cont PPI gtt
close follow of hbg and transfuse as needed
reviewed with renal - hold for HD today
updated pt on plan
-
-
Thank you for consultation and allowing me to participate in the patient's care. Please call the live ammunition inspector GI physician during the after hours with any questions or concerns.
--- NOTE | 2024-04-30 08:26 | CON.INTV ---
Consultation
Consultation Request
Date/Time Consultation Requested: 04/30/24 06:42
Date/Time Consultation Performed: 04/30/2024 08:30
Requesting Provider: Cierra DICKINSON
Performing Provider: Hany Bhatti MD ; Farhad Garcia MD
Reason for Consultation: icu mgmt.s/p code Acute GI bleed
Medical History
-
Chief Complaint: Acute GI bleed
History of Present Illness:
69-year-old male with known past medical history of HFrEF, NICM, ICD in 2019, occipital CVA in 2019, hypertension, hypercholesterolemia, COPD, history of ventricular tachycardia was initially presented in the hospital on 04/23/2024 for evaluation of
abnormal outpatient labs. Patient has a history of anginal immune complex glomerulonephritis diagnosed 13 years ago.
Patient was getting treated for SANTOS on CKD and metabolic acidosis and is followed by nephrology and cardiology(elevated proBNP). He had a renal biopsy and subsequently placement of tunneled right internal jugular dialysis catheter with IR during
this admission. On admission noted with creat 4.1 with rise to 5.2 with start of HD 04/29.
Patient had a rectal bleeding and drop of hemoglobin from 9-5.3 and progressive increase in BUN to 105. He was called 9 last night, unresponsiveness, dizziness and hypotension.
CT angio completed with large intramural hemorrhage in sigmoid and rectum with rectal distention, diverticulosis, no CTA active arterial extravasation to suggest active GI bleed, also noted acute right retroperitoneal hematoma and severe gastritis.
Patient was not on any anticoagulant prior to admission but was on prednisone during hospital stay.
Today the patient admits that he had some nausea and reflux prior to bleeding but did not had any shortness of breath or chest pain. Denies any previous history of GI bleeding. His last colonoscopy was in 2012 which showed multiple adenomatous and
HP polyp.
Past Medical History: Arrhythmias (VT), COPD, CVA, HTN, Hypercholesterolemia, Renal Failure (anginal immune complex Glomerulonephritis, proteinuria ) and Other (non ischemic CM)
Past Surgical History: Cardiac (ICD) and Other (knee cyst removal)
Data:
04/30/24 CT Abd/pelvis Angio W/wo Iv
1. Large amount of INTRALUMINAL HEMORRHAGE in SIGMOID COLON and RECTUM with associated rectal distention.
2. Moderate to severe diverticulosis in the sigmoid colon.
3. No CTA evidence for active arterial extravasation into the lumen of the colon to suggest an acute active gastrointestinal bleed.
4. 5.1 cm ACUTE RIGHT RETROPERITONEAL HEMATOMA.
5. Severe mucosal hyperenhancement and submucosal edema throughout the stomach suggesting SEVERE GASTRITIS.
6. Severe calcific atherosclerotic plaque in the abdominal aorta and iliac arteries.
7. Moderate chronic bilateral renal disease.
8. Minimal ascites.
9. Severe diffuse gallbladder wall edema.
10. Moderate anasarca.
11. Severe multilevel lower lumbar discogenic degenerative disease
Past Medical History
Past Medical History: Other (As above)
Past Surgical History: Other (As above)
Social History
Tobacco: Former Smoker (Quit in 2019. 40 pack-year history)
Alcohol: Occasional
Drug: None
Living: With Family
Family History
Family History: Reviewed & Not Pertinent
Allergies / Home Medications
Allergies
Allergy/AdvReac Type Severity Reaction Status Date / Time
No Known Allergies Allergy Verified 04/23/24 19:45
Home Medications
�Medication �Instructions �Recorded �Confirmed �Last Taken �Type
ascorbic acid (vitamin C) 500 mg 1,000 mg PO DAILY Supplement 10/18/18 04/23/24 04/23/24 History
tablet (Vitamin C)
vitamin B complex 1 tab PO DAILY Supplement 10/18/18 04/23/24 04/23/24 History
aspirin 81 mg tablet,delayed 81 mg PO DAILY #1 tab 10/19/18 04/23/24 04/23/24 Rx
release
albuterol sulfate 90 mcg/actuation 1 inh inhalation R Q4HPRN PRN sob 04/23/24 04/23/24 Unknown History
aerosol inhaler
carvedilol 25 mg tablet 12.5 mg PO BID Blood Pressure 04/23/24 04/23/24 04/23/24 History
cholecalciferol (vitamin D3) 50 50 mcg PO DAILY Supplement 04/23/24 04/23/24 04/23/24 History
mcg (2,000 unit) tablet (Vitamin
D3)
coenzyme Q10 100 mg capsule 100 mg PO DAILY Supplement 04/23/24 04/23/24 04/23/24 History
(CoQ-10)
eplerenone 25 mg tablet 25 mg PO DAILY Heart 04/23/24 04/23/24 04/23/24 History
Disease/Condition
fluticasone fur. 200 mcg-umeclid 1 inh inhalation R DAILY 04/23/24 04/23/24 04/23/24 History
62.5 mcg-vilant 25 mcg Lung/Breathing Issues
inhalat.powder (Trelegy Ellipta)
furosemide 20 mg tablet 20 mg PO DAILY Fluid 04/23/24 04/23/24 04/23/24 History
Retention/Swelling
hydralazine 50 mg tablet 50 mg PO TID Blood Pressure 04/23/24 04/23/24 04/23/24 History
omega-3 fatty acids-fish oil 684 1 cap PO DAILY Supplement 04/23/24 04/23/24 04/23/24 History
mg-1,200 mg capsule,delayed release
rosuvastatin 40 mg tablet 40 mg PO QPM High Cholesterol 04/23/24 04/23/24 04/23/24 History
sotalol 80 mg tablet 80 mg PO BID Arrhythmia 04/23/24 04/23/24 04/23/24 History
Review of Systems
-
History Source: Patient
Constitutional: No Symptoms
Respiratory: No Symptoms
Cardiac: No Symptoms
Abdomen/GI: No Symptoms
: No Symptoms
Neuro: No Symptoms
Vitals / Labs / Diagnostic Testing
Vital Signs
Temp Pulse Resp BP Pulse Ox
98.0 F 63 18 94/62 100
04/30/24 07:34 04/30/24 07:34 04/30/24 07:34 04/30/24 07:30 04/30/24 07:42
Laboratory Results
04/30/24
05:50
PT 18.1 H
INR 1.47
APTT 31.0
Diagnostic Testing:
Physical Exam
-
HEENT: Moist Mucous Membranes
Cardiovascular: Regular Rhythm
Respiratory: Non-Labored Respirations
GI: Soft and Non Distended
Neurology: Awake, Alert and Oriented
Skin: Warm and Dry
Exam:
Bilateral pedal edema
Assessment
-
#s/p code 9 with hypotension unresponsiveness requiring CPR 04/29
#GI bleed- CTA 04/30 with large intraluminal hemorrhoid but no extravasion
#anemia acute blood loss with hypovolemic shock
#severe gastritis per CT
#RP hematoma 5.[address] but noted [address] Edwards s/p renal bx
#ESRD with new start HD 04/29 with recent renal bx
#diverticulosis
#severe GB wall edema per CA
#mild coagulopathy
#hx colon polyp 2012 without follow up
#COPD
#VT -ICD
#CVA
Plan:
s/p 4 units of PRBC
Check H&H
Pending results GI to consider EGD and colonoscopy today versus tomorrow
Maintain n.p.o.
Continue PPI drip
Hold off on dialysis today; potentially can be done tomorrow
Hold on aspirin and prednisone
Maintain MAP > 65; currently at Levophed at 2mcg
Maintain blood glucose 140�180
Repeat BMP in the a.m.
Continue with ICU level of care
Data Reviewed
-
EKG: Report reviewed by me
Radiology: Report reviewed by me
CT Scan: Report reviewed by me
Labs: Labs reviewed by me, Discussed with Physician and Discussed with Patient
Old Records: Reviewed
--- NOTE | 2024-04-30 09:29 | W.PN.HOSP.TC ---
Today's Communication/Plan
-
see bold
Assessment / Plan
Assessment / Plan
Mr. Robinson Yan is a 69 yo man with hx cryptogenic CVA, essential HTN, nonishcemic cardiomyopathy with recovered EF, VT s/p AICD sent to the ER from nephrology clinic for abnormal outpatient labs with elevated creatinine.
Patient has a history of anginal immune complex glomerulonephritis diagnosed 13 years ago. He declined steroids at this time, lost to follow up then referred to Renal Clinic with creatinine 1.6 in October 2023. Proteinuria > 19G. He has had
significant increase in creatinine since then prompting ER visit and admission.
Acute Renal Failure with significant progression over past 4-6 months
Hx Anginal Immune Complex Glomerulonephritis
Nephrotic Proteinuria
+ Casts
- referred to ED from Nephrology at [place] for abnormal labs out patient
- renal US without hydronephrosis, + casts and 4+ albumin
- appreciate nephrology input, status post kidney biopsy 04/28�results pending
- s/p 3 days pulse steroids, now on oral steroids
- s/p lasix, continue sodium bicarb per renal
- s/p permacath insertion 04/29 for dialysis
- Nephrology plans for dialysis tomorrow
Massive UGIB
- Appreciate GI input, 04/30 colonoscopy shows red blood in the gastric fundus, duodenal erosions without bleeding, Visible vessel consistent with a Dieulofoy thought to be likely source of bleeding, which was clipped and injected with epinephrine
- Continue NPO, PPI drip as per GI
Hemorrhagic shock
Acute blood loss anemia
-Patient getting 6 units of blood
-Trend hemoglobin, transfuse as needed
Code 9 on 04/30
-Patient temporarily lost his pulse full a few seconds with agonal breathing, received CPR with ROSC, no meds needed
Musculoskeletal chest pain
-From CPR
Hypokalemia
- replete prn
Hx CVA
- hold aspirin
#essential hypertension
- hold carvedilol and hydralazine
#hypercholesterolemia
- continue rosuvastatin
#nonischemic cardiomyopathy
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
- hold Lasix
- hold carvedilol (dose increased)
- appreciate Cardiology consult
#COPD
- continue albuterol
#Hx ventricular tachycardia s/p dual ICD
EKG: Atrial-paced rhythm
PROLONGED QT
-hold Sotalol in setting of renal failure
-appreciate Cardiology
DVT prophylaxis�SCDs
Full code
Total time spent to see the patient on the floor, examine the patient, review data and lab results, discuss treatment plan with patient, nursing staff around 51 minutes.
Physical Exam
General: No acute distress
HEENT: Normocephalic, Atraumatic, EOMI, MMM
Respiratory: Clear to Auscultation bilaterally
Cardiac: Normal S1/S2, Regular Rate and Rhythm
GI: Soft, Nontender, Nondistended, Normal Bowel Sounds
Extremities: No Clubbing, Cyanosis, or Edema
Neuro: Nonfocal/Grossly Intact
Psych: Calm, Cooperative
Derm: No Visible lesions
Anticipated Discharge: > 48 hours
Subjective/Interval History
-
Date of Service: April 29, 2024
Overnight events noted. Patient had massive hematochezia, temporarily lost his post, requiring CPR. He has gotten 6 units of blood.
He feels better currently, denies chest pain, denies shortness of breath. Reports feeling cold. No fever, no vomiting.
Objective Data
-
Labs:
Laboratory Results
04/29/24
05:39
WBC 12.3 H
Hgb 9.0 L
Hct 25.6 L
Plt Count 204
Sodium 140
Potassium 3.2 L
Chloride 109 H
Carbon Dioxide 22
BUN 96 H
Creatinine 5.2 H*
Glucose 104 H
Calcium 8.3 L
Vital Signs:
Vital Signs
Temp Pulse Resp BP Pulse Ox
98 F 61 11 129/79 95
04/29/24 12:50 04/29/24 13:01 04/29/24 13:01 04/29/24 13:01 04/29/24 13:00
I&O
04/28/24 04/29/24 04/30/24
06:59 06:59 06:59
Intake Total 1110 / 1110 480 / 480 100 / 100
Balance 1110 / 1110 480 / 480 100 / 100
--- NOTE | 2024-04-30 10:02 | W.PN.NEPH.PH ---
Today's Communication / Plan
-
Holding hemodialysis today
Assessment/Plan
-
Assessment
Nephrotic range proteinuria
SANTOS progressive
Hypokalemia
Metabolic acidosis
Edema/anasarca
hypertension
Pacemaker
History cryptogenic stroke
Plan
cr cont to rise at 4.9, overall slightly decreased UOP subjectively , not measured
s/p K biopsy 04/28
paraprotein, serologies w/u neg in Dec
completed pulse steroids and on PO steroid now, will ultimately need to be on a Bactrim 3 times a week
Status post GI bleeding overnight hemoglobin of 5.3 required CPR
Discussed with GI will be doing endoscopy
Hemodynamically stable not requiring pressors
Will hold dialysis today/he is stable from a volume and electrolyte standpoint
CAT scan reviewed from this morning shows acute retroperitoneal hematoma 5.1 cm/large intraluminal hemorrhage in the sigmoid and colon and rectum
CM to work on getting HD unit set up /patient prefers [facility] in [place]
Dialysis plan for tomorrow

35 minutes of critical care time
-
-
Date of Service: April 30, 2024
CC / HPI / ROS
-
Chief Complaint:
Acute kidney injury
History of Present Illness:
Presents with edema and worsening renal function and proteinuria requiring hemodialysis
Status post acute GI bleed 04/30
Review of Systems:
no hematuria
No chest pain or shortness of breath
Labs
-
Labs:
WBC Cancelled 04/30/24 06:00
RBC Cancelled 04/30/24 06:00
Plt Count Cancelled 04/30/24 06:00
eGFR 14.33 04/30/24 05:50
Mos-C-Rdktekyaths Pept 2370 pg/ml 04/23/24 21:50
Albumin < 1.0 g/dl (3.5-5.0) L 04/30/24 05:50
Physical Exam
-
Vital Signs:
Vital Signs
Temp Pulse Resp BP Pulse Ox
97.8 F 63 15 113/75 100
04/30/24 09:37 04/30/24 09:45 04/30/24 09:45 04/30/24 09:45 04/30/24 09:45
Respiratory:: Bilateral: CTA
Lung Excursion:: Normal
Abdomen:: Nontender and Soft
Bowel Sounds:: Normal
Escudero Catheter: No
--- NOTE | 2024-04-30 10:26 | W.PN.CD ---
Today's Communication / Plan
-
Watch on tele
No objection to any needed EGD/colonoscopy. Cardiac status should allow these procedures at low cardiac risk
Impression / Plan
-
Robinson Yan is a 69-year-old man with prior cryptogenic stroke, hypertension, nonischemic cardiomyopathy (recovered EF), sustained VT status post ICD, and CKD who presented to ER with acute renal failure discovered on outpatient labs.
Cardiology was consulted for his history of cardiomyopathy and VT.
Severe GI bleed last night
Acute blood loss anemia, severe
Acute renal failure
- Now s/p biopsy
- HD is planned
Hypokalemia, improved
Hx of prior sustained VT, status post ICD
- Initially more PVCs and a few couplets on tele as sotalol washes out, but not much MARION on tele last 12 hours
- No treated VT for more than 3 yrs on sotalol
- Trying Coreg 12.5 TID. In past 25 BID not well tolerated
- Wont use sotalol after dialysis
- Ablation OR Amio will be pursued if Coreg cannot control VT
Nonischemic cardiomyopathy with improved EF, chronic.
- EF 29% at cath 10/2018 with normal coronaries.
- EF by echo in 2019 was 40-45%
- LVEF 04/24/2024: LVEF 55-60%, no valvular disease
- Volume control per nephrology
- Heart failure has not been an active problem
Prior CVA
- He reports not taking aspirin at home. Unclear why.
- Continue statin (rosuvastatin 10 mg max with ESRD)
- Afib has never been seen on his dual ICD
- Back on ASA
- Aspirin indication is prior CVA (visual field cut and + CT) and not cardiac indication
Hypertension
- Per nephrology
Subjective: No CP or dyspnea.
Physical Exam
Vital Signs/Labs
Vital Signs
Temp Pulse Resp BP Pulse Ox
97.8 F 63 15 113/75 100
04/30/24 09:37 04/30/24 09:45 04/30/24 09:45 04/30/24 09:45 04/30/24 09:45
04/29/24 04/30/24 05/01/24
06:59 06:59 06:59
Actual Weight 98.611 kg 96.8 kg
PT 18.1 Sec (11.4-14.6) H 04/30/24 05:50
INR 1.47 04/30/24 05:50
APTT 31.0 Sec (23.4-35.0) 04/30/24 05:50
Magnesium 1.6 mg/dl (1.6-2.3) 04/29/24 05:39
04/23/24
21:50
Pjn-O-Ssfmoirxpsj Pept 2370
Physical Exam
Constitutional: No acute distress
EENT: Anicteric
Cardiovascular: Rhythm & rate is regular and Pedal edema is absent
Respiratory: Respiratory effort normal and Lungs clear to auscul.
GI: Soft and Distention absent
Neuro/Psych: Alert
Data Reviewed
-
Date of Service: April 30, 2024
--- NOTE | 2024-04-30 10:30 | PTCARENOTE ---
pt had very large burgundy liquid bowel movement on bedpan. blood pressure dropped to 70s systolic, levophed started at 2 mcg/min
[2024-04-30 10:52] LABS: Hematocrit 22.6 % (39.0-52.0); Hemoglobin 7.8 g/dL (13.0-18.0)
[2024-04-30 10:56] LABS: Magnesium 1.6 mg/dl (1.6-2.3); Phosphorus 4.5 mg/dl (2.5-4.5)
[2024-04-30 11:13] LABS: Blood Urea Nitrogen 107 mg/dl (9-20); Calcium 5.9 mg/dl (8.4-10.2); Carbon Dioxide 22 mmol/L (22-30); Chloride 113 mmol/L (98-107); Estimated Creatinine Clearance 17 ml/min; Glucose 178 mg/dl (70-99); Potassium 4.4 mmol/L (3.5-5.1); Sodium 138 mmol/L (135-145); eGFR 13.94
[2024-04-30] MEDS: LEVOPHED 250 IV (11:30)
--- NOTE | 2024-04-30 12:26 | CM ---
CM following re: discharge planning.
Reviewed pt's chart, met with pt.
per chart review, pt will need set up outpatient HD treatment. 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 Pt stated he
understands he has to drive up to 18 miles 3 times per week and he strongly requested [facility] outpatient HD treatment center on [address]. Pt is requested MWF, morning shift. Pt stated he still works on Saturdays and he would like to
continue working.
A referral to [facility] made, pt's clinical with hepatitis panel and flow sheets faxed to [facility] at [phone]. CM [facility] Fatimah [phone] and she confirmed she is working on the referral.
Pt stated he will be working with [facility] to have PD in the future.
D/C plan: home with outpatient HD treatment at [facility] on [address] and family support. Awaiting for invitation letter from [facility]. Tentative 1st outpatient HD treatment scheduled for Sunday05/06/24.
CM will follow with discharge plan updates as needed.
[2024-04-30] MEDS: ERYTHROCIN 105 MG IV (13:41)
--- NOTE | 2024-04-30 13:45 | PTCARENOTE ---
received patient back from GI lab. pt drowsy, arouses to voice. SR/ a paced on telemetry heart rate 60s. pt on Levophed at 6 mcg/min. pt incontinent of large burgundy bloody bowel movement. CHG bath completed. pt resting comfortably
--- NOTE | 2024-04-30 13:55 | CON.CRS ---
Consultation
-
Date/Time Consultation Requested: 04/30/2024, 7:18 AM
Date/Time Consultation Performed: 04/30/2024, 8 AM
Requesting Provider: Cierra Perry
Performing Provider: Amor Rodriguez MD
Reason for Consultation: Rectal sigmoid bleeding
Medical History
-
Chief Complaint: Bleeding
History of Present Illness:
69-year-old male with a history of COPD, ventricular tachycardia, CVA, and hypertension, came to the ER by [facility] on 04/23/2024 due to abnormal labs on outpatient blood work. Apparently his creatinine was elevated and he is followed by
[facility]. He was admitted due to SANTOS with a creatinine of 4.1. Due to uncertain etiology of renal failure, he underwent a right renal biopsy in interventional radiology 2 days ago. Yesterday he had a hemodialysis port placed by IR. Early this
morning he had a bloody bowel movement and was hypotensive. He developed unresponsiveness and a code 9 was called. This turned into a code situation after the patient lost his pulses. CPR was initiated and after resuscitation he regained
consciousness shortly thereafter. No medications were given. He was transported to ICU. Started on a Protonix drip and kept NPO. Prednisone and aspirin were held. CT angiogram was performed and showed a large amount of intraluminal hemorrhage
in the sigmoid colon and rectum with associated rectal distention. There is a 5.1 cm acute right retroperitoneal hematoma. There is severe mucosal hyperenhancement and submucosal edema throughout the entire stomach suggesting severe gastritis. IR
was consulted and no extravasation of contrast was noted therefore no intervention was performed by interventional radiology.
The patient states since the event he has had several bloody bowel movements. The last 1 was probably about a few hours ago. He has had bad reflux during dialysis which is new for him. He denies nausea or vomiting. He denies abdominal pain. He
states that rectal bleeding in the past. He has never had prior colorectal surgery. His last colonoscopy was probably about 15 years ago and he was due 10 years ago. Currently he states he feels much better after receiving several units of blood
since his event. Given the findings on CTA, we have been consulted for further surgical opinion.
Past Medical History
Past Medical History: Other (Essential hypertension, hypercholesterolemia, nonischemic cardiomyopathy, COPD, history of ventricular tachycardia with ICD, history of stroke)
Past Surgical History: Other (cyst removal from right knee , ICD)
Social History
Tobacco: Former Smoker
Alcohol: Occasional
Personal:
Living: With Family
Family History
Family History: Reviewed & Not Pertinent
Allergies / Home Medications
Allergy/AdvReac Type Severity Reaction Status Date / Time
No Known Allergies Allergy Verified 04/23/24 19:45
�Medication �Instructions �Recorded �Confirmed �Type
ascorbic acid (vitamin C) 500 mg 1,000 mg PO DAILY Supplement 10/18/18 04/23/24 History
tablet (Vitamin C)
vitamin B complex 1 tab PO DAILY Supplement 10/18/18 04/23/24 History
aspirin 81 mg tablet,delayed 81 mg PO DAILY #1 tab 10/19/18 04/23/24 Rx
release
albuterol sulfate 90 mcg/actuation 1 inh inhalation R Q4HPRN PRN sob 04/23/24 04/23/24 History
aerosol inhaler
carvedilol 25 mg tablet 12.5 mg PO BID Blood Pressure 04/23/24 04/23/24 History
cholecalciferol (vitamin D3) 50 50 mcg PO DAILY Supplement 04/23/24 04/23/24 History
mcg (2,000 unit) tablet (Vitamin
D3)
coenzyme Q10 100 mg capsule 100 mg PO DAILY Supplement 04/23/24 04/23/24 History
(CoQ-10)
eplerenone 25 mg tablet 25 mg PO DAILY Heart 04/23/24 04/23/24 History
Disease/Condition
fluticasone fur. 200 mcg-umeclid 1 inh inhalation R DAILY 04/23/24 04/23/24 History
62.5 mcg-vilant 25 mcg Lung/Breathing Issues
inhalat.powder (Trelegy Ellipta)
furosemide 20 mg tablet 20 mg PO DAILY Fluid 04/23/24 04/23/24 History
Retention/Swelling
hydralazine 50 mg tablet 50 mg PO TID Blood Pressure 04/23/24 04/23/24 History
omega-3 fatty acids-fish oil 684 1 cap PO DAILY Supplement 04/23/24 04/23/24 History
mg-1,200 mg capsule,delayed release
rosuvastatin 40 mg tablet 40 mg PO QPM High Cholesterol 04/23/24 04/23/24 History
sotalol 80 mg tablet 80 mg PO BID Arrhythmia 04/23/24 04/23/24 History
Review of Systems
-
History Source: Patient
Abdomen/GI: Bloody Stools
A 10 point review of systems was completed, and was negative except as per HPI.
Physical Exam
Vital Signs
Temp 97.5 F 04/30/24 11:19
Pulse 61 04/30/24 11:15
Resp Rate 14 04/30/24 11:15
Blood pressure 108/76 04/30/24 11:00
SaO2 99 04/30/24 11:15
04/29/24 04/30/24 05/01/24
06:59 06:59 06:59
Actual Weight 98.611 kg 96.8 kg
Body Mass Index (BMI) 29.8
Lab Results / Allergies
04/30/24 10:34
WBC Cancelled 04/30/24 06:00
Hgb 7.8 g/dL (13.0-18.0) L D 04/30/24 10:34
Hct 22.6 % (39.0-52.0) L 04/30/24 10:34
Plt Count Cancelled 04/30/24 06:00
Abs Immat Gran (auto) 0.1 10^3/uL (0-0.05) H 04/28/24 06:23
Neutrophils % 92.7 % (42.2-75.2) H 04/28/24 06:23
Allergy/AdvReac Type Severity Reaction Status Date / Time
No Known Allergies Allergy Verified 04/23/24 19:45
Physical Exam
General: No Apparent Distress
GI: Soft, Non Tender and Non Distended
Skin: Warm and Dry
Neuro: AO x 3
Psych: Calm
Data Reviewed
-
CT Scan: Image Personally Visualized and interpreted, Report Reviewed by me and Discussed with Patient
Labs: Labs Reviewed by me, Discussed with Physician and Discussed with Patient
Old Records: Reviewed
Assessment / Plan
-
Assessment: 69-year-old male with a past medical history of hypertension, cardiomyopathy, hypertension, found to be in renal failure of unknown origin, blood overnight and required who came appear resuscitation via CPR status post multiple
transfusions for hemoglobin of 5.3 and found to have hemorrhage in the lumen of the sigmoid colon as well as rectum
Plan:
-Discussed with Dr. Grijalva will see the patient in consult and plans on performing a scope later this afternoon
-No role for urgent surgery at this time will follow results of scope
-Remain n.p.o. for now
-Continue to trend hemoglobin and transfuse as needed
[2024-04-30] MEDS: SOLU-MEDROL PF 50 MG IV (15:21)
[2024-04-30 16:33] LABS: Hematocrit 27.3 % (39.0-52.0); Hemoglobin 9.5 g/dL (13.0-18.0)
--- NOTE | 2024-04-30 16:36 | PTCARENOTE ---
pt resting comfortably in bed. levophed tapered to 2 mcg/min. H/H drawn and sent. no changes in assessment noted.
[2024-04-30] MEDS: CRESTOR PO (17:24)
--- NOTE | 2024-04-30 20:00 | PTCARENOTE ---
rec`d pt at 1900 AAOx3. denies any dizziness or light headedness. PIVS flushed and patent. assessment as documented. 2L NC. POX 96%. +BS. uses urinal. Protonix gtt continued. safe environment maintained. call elizabeth in reach.
[2024-04-30] MEDS: DILAUDID 0.5 MG IV (20:17)
[2024-05-01] VITALS (82 sets, daily range): BP systolic 74–145; BP diastolic 56–95; BMI 29.8
--- NOTE | 2024-05-01 01:41 | PTCARENOTE ---
pt called- wanting to walk to the bathroom. pt got up with a 2x assist to bathroom. pt tolerated walking to the bathroom w/walker, no light headedness or dizziness. pt passed a large, burgundy BM. pt looked flushed and pale walking back to bed w/ 2
assist.
[2024-05-01] MEDS: PROTONIX 100 IV ×3 (02:35→23:44)
[2024-05-01 04:15] LABS: Hematocrit 23.2 % (39.0-52.0); Hemoglobin 8.2 g/dL (13.0-18.0); Mean Corp Hgb Conc. 35.3 g/dL (33.0-37.0); Mean Corpuscular Hgb 29.8 pg (27.0-31.0); Mean Corpuscular Volume 84.4 fL (80.0-94.0); Red Blood Cell Count 2.75 10^6/uL (4.70-6.10); Red Cell Dist. Width 15.6 % (11.5-14.5); White Blood Cell Count 17.6 10^3/uL (4.8-10.8)
[2024-05-01 04:33] LABS: Mean Platelet Volume 10.6 fL (7.4-10.4); Platelet Count 74 10^3/uL (130-400)
[2024-05-01 05:07] LABS: Blood Urea Nitrogen 130 mg/dl (9-20); Calcium 6.2 mg/dl (8.4-10.2); Carbon Dioxide 20 mmol/L (22-30); Chloride 115 mmol/L (98-107); Estimated Creatinine Clearance 14 ml/min; Glucose 122 mg/dl (70-99); Potassium 4.6 mmol/L (3.5-5.1); Sodium 141 mmol/L (135-145); eGFR 11.15
[2024-05-01] MEDS: SYMBICORT 160/4.5 MCG INHALER INH (07:44)
[2024-05-01] MEDS: SPIRIVA RESPIMAT 2.5 MCG INH (07:44)
--- NOTE | 2024-05-01 08:13 | W.PN.INTV ---
Today's Communication / Plan
Recommendations
Continue current management
Diet per GI
HD today
Assessment
-
#s/p code 9 with hypotension unresponsiveness requiring CPR 04/29
#GI bleed- CTA 04/30 with large intraluminal hemorrhoid but no extravasion
#anemia acute blood loss with hypovolemic shock
#severe gastritis per CT
#RP hematoma 5.[address] but noted [address] Edwards s/p renal bx
#ESRD with [facility] start HD 04/29 with recent renal bx
#diverticulosis
#severe GB wall edema per CA
#mild coagulopathy
#hx colon polyp 2012 without follow up
#COPD
#VT -ICD
#CVA
Plan:
s/p 6 units of PRBC: transfuse to keep Hb>7, plt>50k
Colorectal does not recommend any surgical intervention at this time
GI following
2 dark stools overnight
Maintain n.p.o.
Continue PPI drip
Hold all antiplatelets + anticoagulants for now
cont solumedrol
Biopsy results pending
Maintain MAP > 65; currently at Levophed at 2mcg
Maintain blood glucose 140�180
Replete electrolytes with K>4, Mg>2
continue Symbicort + Spiriva while hospitalized and resume Trelegy upon discharge
Continue with ICU level of care
Data: EGD 04/30/24
Impression: - Normal esophagus.
- Z-line irregular.
- Medium-sized hiatal hernia.
- Red blood in the gastric fundus.
- Congestive gastropathy.
- Duodenal erosions without bleeding.
- Blood in the second portion of the duodenum.
- No specimens collected.
Subjective Dataa
Subjective Data
Date of Service:
Date of Service: May 01, 2024
Chief Complaint: Jackscrew Man Follow Up
Subjective:
Patient seen earlier today. On HD. Offers no new complaints. Reports he had 2 bowel movement last night and nurse told the patient that there were some old blackish blood in the stools. Denies nausea, chest pain, trouble breathing.
Review of Systems
General: Fever (No)
Cardiopulmonary: Cough (No)
GI: Abdominal Pain (No)
Neuro: Weakness
Objective Data
Data Reviewed
Vital Signs / I&O / Oxygen:
Vital Signs
Temp Pulse Resp BP Pulse Ox
98.7 F 62 12 116/65 97
05/01/24 05:06 05/01/24 05:04 05/01/24 05:04 05/01/24 05:04 05/01/24 05:04
Intake and Output
04/30/24 05/01/24 05/02/24
06:59 06:59 06:59
Intake Total 900 / 900 1125.0 / 1135.0
Balance 900 / 900 1125.0 / 1135.0
SaO2 97
Nasal Cannula flow liters per 2
minute
Physical Exam
General: Comfortable
HEENT: Moist Mucous Membranes
Cardiovascular: S1-S2 and Regular Rhythm
Respiratory: Clear and Non-Labored Respirations
GI: Soft, Non Distended and Non Tender
Neurology: Awake, Alert and Oriented
Skin: Warm, Dry and Other (Bilateral pedal edema)
Labs/Micro/Reports
Lab Data
05/01/24 04:01
05/01/24 04:01
--- NOTE | 2024-05-01 08:48 | W.PN.HOSP.TC ---
Today's Communication/Plan
-
see bold
Assessment / Plan
Assessment / Plan
Mr. Robinson Yan is a 69 yo man with hx cryptogenic CVA, essential HTN, nonishcemic cardiomyopathy with recovered EF, VT s/p AICD sent to the ER from nephrology clinic for abnormal outpatient labs with elevated creatinine.
Patient has a history of anginal immune complex glomerulonephritis diagnosed 13 years ago. He declined steroids at this time, lost to follow up then referred to Renal Clinic with creatinine 1.6 in October 2023. Proteinuria > 19G. He has had
significant increase in creatinine since then prompting ER visit and admission.
Acute Renal Failure with significant progression over past 4-6 months
Hx Anginal Immune Complex Glomerulonephritis
Nephrotic Proteinuria
+ Casts
- referred to ED from Nephrology at [place] for abnormal labs out patient
- renal US without hydronephrosis, + casts and 4+ albumin
- appreciate nephrology input, status post kidney biopsy 04/28�results pending
- s/p 3 days pulse steroids, now on oral steroids
- s/p lasix, continue sodium bicarb per renal
- s/p permacath insertion 04/29 for dialysis
- started on dialysis 05/01, continue dialysis as per nephrology
Massive UGIB
- Appreciate GI input, 04/30 colonoscopy shows red blood in the gastric fundus, duodenal erosions without bleeding, Visible vessel consistent with a Dieulofoy thought to be likely source of bleeding, which was clipped and injected with epinephrine
- Continue NPO, PPI drip as per GI
- Will need repeat EGD in 8 weeks outpatient, strict NSAID avoidance
Hemorrhagic shock
Acute blood loss anemia
-Patient getting 6 units of blood
-Trend hemoglobin, transfuse as needed
Code 9 on 04/30
-Patient temporarily lost his pulse full a few seconds with agonal breathing, received CPR with ROSC, no meds needed
Musculoskeletal chest pain
-From CPR
Hypokalemia
- replete prn
Hx CVA
- hold aspirin
#essential hypertension
- hold carvedilol and hydralazine
#hypercholesterolemia
- continue rosuvastatin
#nonischemic cardiomyopathy
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
- hold Lasix
- hold carvedilol (dose increased)
- appreciate Cardiology consult
#COPD
- continue albuterol
#Hx ventricular tachycardia s/p dual ICD
EKG: Atrial-paced rhythm
PROLONGED QT
-hold Sotalol in setting of renal failure
-appreciate Cardiology
DVT prophylaxis�SCDs
Full code
Total time spent to see the patient on the floor, examine the patient, review data and lab results, discuss treatment plan with patient, nursing staff around 50 minutes.
Physical Exam
General: No acute distress
HEENT: Normocephalic, Atraumatic, EOMI, MMM
Respiratory: Clear to Auscultation bilaterally
Cardiac: Normal S1/S2, Regular Rate and Rhythm
GI: Soft, Nontender, Nondistended, Normal Bowel Sounds
Extremities: No Clubbing, Cyanosis, or Edema
Neuro: Nonfocal/Grossly Intact
Psych: Calm, Cooperative
Derm: Pale
Anticipated Discharge: > 48 hours
Subjective/Interval History
-
Date of Service: May 01, 2024
Patient had a black bowel movement. Reports having some gas. Musculoskeletal chest pain has improved. No shortness of breath, no fever, no vomiting.
Objective Data
-
Labs:
Laboratory Results
05/01/24
04:01
WBC 17.6 H
Hgb 8.2 L
Hct 23.2 L
Plt Count 74 L D
Sodium 141
Potassium 4.6
Chloride 115 H
Carbon Dioxide 20 L
BUN 130 H*
Creatinine 5.3 H*
Glucose 122 H
Calcium 6.2 L*
Vital Signs:
Vital Signs
Temp Pulse Resp BP Pulse Ox
97.8 F 62 12 116/65 96
05/01/24 08:29 05/01/24 05:04 05/01/24 05:04 05/01/24 05:04 05/01/24 08:46
I&O
04/30/24 05/01/24 05/02/24
06:59 06:59 06:59
Intake Total 900 / 900 1125.0 / 1135.0
Balance 900 / 900 1125.0 / 1135.0
[2024-05-01] MEDS: RETACRIT 10000 UNITS IV (08:52)
--- NOTE | 2024-05-01 09:44 | W.PN.CD ---
Today's Communication / Plan
-
Monitor on tele
Resume ASA only when/if it is safe, was for a prior ischemic stroke
Impression / Plan
-
Robinson Yan is a 69-year-old man with prior cryptogenic stroke, hypertension, nonischemic cardiomyopathy (recovered EF), sustained VT status post ICD, and CKD who presented to ER with acute renal failure discovered on outpatient labs.
Cardiology was consulted for his history of cardiomyopathy and VT.
Severe/massive upper GI bleed with severe blood loss anemia from a Dieulafoy lesion in the duodenum that was injected with epinephrine and clipped
- So far 6 u PRBC transfused
- ASA was for a remote ischemic stroke => Resume when/if safe
Acute on chronic renal failure
- Now s/p biopsy
- HD
Hx of prior sustained VT, status post ICD
- Initially more PVCs and a few couplets on tele as sotalol washes out, but not much MARION on tele last 36 hours
- No treated VT for more than 3 yrs on sotalol
- Trying Coreg 12.5 TID. In past 25 BID not well tolerated
- Wont use sotalol after dialysis
- Ablation OR Amio will be pursued if Coreg cannot control VT
Nonischemic cardiomyopathy with improved EF, chronic.
- EF 29% at cath 10/2018 with normal coronaries.
- EF by echo in 2019 was 40-45%
- LVEF 04/24/2024: LVEF 55-60%, no valvular disease
- Volume control per nephrology
- Heart failure has not been an active problem
Prior CVA
- He reports not taking aspirin at home. Unclear why.
- Continue statin (rosuvastatin 10 mg max with ESRD)
- Afib has never been seen on his dual ICD
- Back on ASA
- Aspirin indication is prior CVA (visual field cut and + CT) and not cardiac indication
Hypertension
- Per nephrology
Subjective: No CP or dyspnea.
Physical Exam
Vital Signs/Labs
Vital Signs
Temp Pulse Resp BP Pulse Ox
97.8 F 62 12 116/65 100
05/01/24 08:29 05/01/24 05:04 05/01/24 05:04 05/01/24 05:04 05/01/24 09:04
04/30/24 05/01/24 05/02/24
06:59 06:59 06:59
Actual Weight 96.8 kg 97 kg
05/01/24 04:01
05/01/24 04:01
PT 18.1 Sec (11.4-14.6) H 04/30/24 05:50
INR 1.47 04/30/24 05:50
APTT 31.0 Sec (23.4-35.0) 04/30/24 05:50
Magnesium 1.6 mg/dl (1.6-2.3) 04/30/24 10:34
04/23/24
21:50
Yjc-R-Cgawmpveyty Pept 2370
Physical Exam
Constitutional: No acute distress
EENT: Anicteric
Cardiovascular: Rhythm & rate is regular and Pedal edema is absent
Respiratory: Respiratory effort normal and Lungs clear to auscul.
GI: Soft and Distention absent
Neuro/Psych: AO x 3
Data Reviewed
-
Date of Service: May 01, 2024
--- NOTE | 2024-05-01 09:58 | W.PN.GI.CBS2 ---
Addendum entered and electronically signed by Hammad Asencio MD 05/01/24 15:50:
added gasx prn - pt states helps
Addendum entered and electronically signed by Hammad Asencio MD 05/01/24 15:49:
I saw and examined the patient.
The MARKING DEVICES ASSEMBLER or PA's note was reviewed and I agree with the note.
Comment: 69 yo M pmh VT with ICD in place, progressive kidney dz requiring HD first session 04/29 p/w massive hematochezia with hypotension requiring pressors and short CPR, CTA with gastritis, blood in colon, RPB, underwent EGD 04/30 yesterday with
me and had a visible vessel likely Dieulofoy as etiology s/p clip, epi, tattoo cause of bleeding. Also with duodenal erosions, gastritis, irregular Zline, HH. Off pressors, melena today.
Recommendations:
-trend hg, signs of overt bleeding
-advance to clear liquid tonight
-if stable Hb, no further bleeding by tomorrow AM ok GI POV to downgrade to IMU (recommend ICU today given hemodynamic instability yesterday)
-PPI gtt
-repeat EGD in 8 weeks will need to be arranged (last colon 2012 also likely due)
d/w hospitalist, ICU attg
Original Note:
Today's Communication / Plan
-
etiology of bleeding related to UGI source with a Dieulofoy s/p epi and clips placed 04/30
total 6 units PRBC's given
hbg up to 9.5 then 8.2 and BUN continues to rise to 130
will repeat H/H at end of HD around 11- 11:30 then q 8 hr checks
trend stool pattern
cont ice chips only
risk for rebleeding-- if signs of rebleeding consider repeat EGD
if any drop and hbg and not correlating with GI bleed repeat CT with RP hemorrhage noted on imaging
last stool 30 minutes prior to seen black with some burgundy stool this am
cont PPI gtt
will need repeat EGD 8 weeks, NSAID avoidance
NPO
getting HD now
Assessment / Plan
-
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 On admission noted with creat 4.1 with rise to
5.2 with start of HD 04/29. He has been seen by cardiology for CT and cardiomyopathy and now noted with rectal bleeding with red blood with initial 2 large volumes of red blood with drop in hbg from 9 on 04/29 to 5.3 and progressive increase in BUN to
105. He was code 9 alert with unresponsiveness, dizziness, and hypotension. Consult also placed to Colorectal surgery and IR. CT angio completed with large intraluminal hemorrhage in sigmoid and rectum with rectal distention, diverticulosis,
no CTA active art extravasation to suggest active GI bleed, also noted acute right retroperineal hematoma and severe gastritis. Pt was evaluated by Dr. Edwards holding on angio in setting of risk/benefit with renal disease. Also noted RP hematoma
9 mm likely following renal biopsy. no AC or NSAID prior to admission but was on Prednisone.
05/01/24 EGD - Normal esophagus.
- Z-line irregular.
- Medium-sized hiatal hernia.
- Red blood in the gastric fundus.
- Congestive gastropathy.
- Duodenal erosions without bleeding.
- Blood in the second portion of the duodenum.
Visible vessel consistent with a Dieulofoy thought to be likely source of bleeding. Area was successfully injected with 1.5 mL of a 0.1 mg/mL solution of epinephrine for hemostasis
- No specimens collected
Laboratory Tests
04/30/24 04/30/24 04/30/24
05:50 10:34 16:15
Hgb 5.3 L* 7.8 L D 9.5 L D
05/01/24
04:01
Hgb 8.2 L
-s/p code 9 with hypotension unresponsiveness requiring CPR 04/29
-GI bleed- CTA 04/30 with large intraluminal hemorrhoid but no extravasion, 04/30 EGD with visible vessel c/w Dieulofoy s/p epi and clip
-anemia acute blood loss with hypovolemic shock s/p 6 unit PRBC's given 04/30
-severe gastritis per CT
-RP hematoma 5.[address] but noted [address] Edwards s/p renal bx
-ESRD with new start HD 04/29 with recent renal bx
-diverticulosis
-severe GB wall edema per CA
-mild coagulopathy
other med problems:
-hx colon polyp 2012 without follow up
-COPD
-VT -ICD
-CVA
PLAN:
etiology of bleeding related to UGI source with a Dieulofoy s/p epi and clips placed 04/30
total 6 units PRBC's given
hbg up to 9.5 then 8.2 and BUN continues to rise to 130
will repeat H/H at end of HD around 11- 11:30 then q 8 hr checks
trend stool pattern
cont ice chips only
risk for rebleeding-- if signs of rebleeding consider repeat EGD
if any drop and hbg and not correlating with GI bleed repeat CT with RP hemorrhage noted on imaging
last stool 30 minutes prior to seen black with some burgundy stool this am
cont PPI gtt
will need repeat EGD 8 weeks, NSAID avoidance
NPO
getting HD now
Subjective
Subjective
Date of Service: May 01, 2024
some burgundy stool then black stool about 30 minutes ago, on ice chips/small sips
Objective
Data Reviewed
Laboratory Data:
Laboratory Results
05/01/24 04:01
05/01/24 04:01
Laboratory Results
PT 18.1 Sec (11.4-14.6) H 04/30/24 05:50
INR 1.47 04/30/24 05:50
APTT 31.0 Sec (23.4-35.0) 04/30/24 05:50
Phosphorus 4.5 mg/dl (2.5-4.5) 04/30/24 10:34
Magnesium 1.6 mg/dl (1.6-2.3) 04/30/24 10:34
Total Bilirubin 0.2 mg/dl (0.2-1.3) 04/30/24 05:50
AST 15 U/L (17-59) L 04/30/24 05:50
ALT 12 U/L (0-50) 04/30/24 05:50
Alkaline Phosphatase 33 U/L (38-126) L 04/30/24 05:50
Vital Signs and I&O:
Vital Signs
Temp Pulse Resp BP Pulse Ox
97.8 F 62 12 116/65 100
05/01/24 08:29 05/01/24 05:04 05/01/24 05:04 05/01/24 05:04 05/01/24 09:04
I&O
04/30/24 05/01/24 05/02/24
06:59 06:59 06:59
Intake Total 900 / 900 1125.0 / 1135.0
Balance 900 / 900 1125.0 / 1135.0
Physical Exam
Physical Exam
HEENT: Anicteric and Moist mucous membranes
Cardiology: Normal Sinus Rhythm
Pulmonary: Clear
GI: Soft, Non Distended and Non Tender
Neuro: Non Focal
--- NOTE | 2024-05-01 10:39 | CM ---
CM following re: discharge planning.
Reviewed pt's chart, met with pt.
CM received an invitation letter from [facility] confirming that pt is accepted for outpatient HD treatment at [facility] on [facility], [facility], chair time 4:00 p.m. The invitation letter given to the pt and pt expressed his great
satisfaction. Tentative outpatient HD treatment is scheduled for Sunday05/05/24.
CM spoke to [facility] [employer] staff accountant Rand [phone] and she confirmed of secured chair at [facility].
Pt stated he will be working with [facility] to have PD in the future.
D/C plan: home with outpatient HD treatment at [facility] and family support.
CM will follow with discharge plan updates as needed.
[2024-05-01 10:50] LABS: Hematocrit 24.4 % (39.0-52.0); Hemoglobin 8.7 g/dL (13.0-18.0)
--- NOTE | 2024-05-01 11:24 | W.PN.NEPH.PH ---
Today's Communication / Plan
-
Dialysis today and tomorrow
Assessment/Plan
-
Assessment
Nephrotic range proteinuria
SANTOS progressive
Hypokalemia
Metabolic acidosis
Edema/anasarca
hypertension
Pacemaker
History cryptogenic stroke
Plan
cr cont to rise at 4.9, overall slightly decreased UOP subjectively , not measured
s/p K biopsy 04/28= results pending
paraprotein, serologies w/u neg in Dec
completed pulse steroids and on PO steroid now
Status post GI bleeding overnight hemoglobin of 5.3 required CPR
GI status post endoscopy= Dieulafoy
Tolerating dialysis currently ultrafiltration 1 L. With soft blood pressure.
Set up at [place] dialysis MWF third shift
Dialysis again on Sunday

35 minutes of critical care time
-
-
Date of Service: May 01, 2024
CC / HPI / ROS
-
Chief Complaint:
Acute kidney injury
History of Present Illness:
Presents with edema and worsening renal function and proteinuria requiring hemodialysis
Status post acute GI bleed 04/30
Review of Systems:
no hematuria
No chest pain or shortness of breath
Labs
-
Labs:
WBC 17.6 10^3/uL (4.8-10.8) H 05/01/24 04:01
RBC 2.75 10^6/uL (4.70-6.10) L 05/01/24 04:01
Plt Count 74 10^3/uL (130-400) L D 05/01/24 04:01
Sodium 141 mmol/L (135-145) 05/01/24 04:01
Potassium 4.6 mmol/L (3.5-5.1) 05/01/24 04:01
Chloride 115 mmol/L (98-107) H 05/01/24 04:01
Carbon Dioxide 20 mmol/L (22-30) L 05/01/24 04:01
BUN 130 mg/dl (9-20) H* 05/01/24 04:01
Creatinine 5.3 mg/dL (0.7-1.3) H* 05/01/24 04:01
eGFR 11.15 05/01/24 04:01
Glucose 122 mg/dl (70-99) H 05/01/24 04:01
Calcium 6.2 mg/dl (8.4-10.2) L* 05/01/24 04:01
Phosphorus 4.5 mg/dl (2.5-4.5) 04/30/24 10:34
Tdy-Q-Wfaaghyrbww Pept 2370 pg/ml 04/23/24 21:50
Albumin < 1.0 g/dl (3.5-5.0) L 04/30/24 05:50
Physical Exam
-
Vital Signs:
Vital Signs
Temp Pulse Resp BP Pulse Ox
98.4 F 62 12 116/65 100
05/01/24 11:16 05/01/24 05:04 05/01/24 05:04 05/01/24 05:04 05/01/24 09:04
Respiratory:: Bilateral: CTA
Lung Excursion:: Normal
Abdomen:: Nontender and Soft
Bowel Sounds:: Normal
Extremity Edema:: +2: Bilateral:
Escudero Catheter: No
[2024-05-01] MEDS: SOLU-MEDROL PF 50 MG IV (12:08)
[2024-05-01] MEDS: B COMPLEX w/VITAMIN C PO (12:08)
[2024-05-01] MEDS: VITAMIN C PO (12:08)
[2024-05-01] MEDS: VITAMIN D3 (cholecalciferol) PO (12:08)
--- NOTE | 2024-05-01 12:19 | PTCARENOTE ---
pt completed HD. HGB 8.7. GI aware of black stool. BP soft while repositioning/BM. 107/75 currently. Protonix gtt continues, May have sips of clears. Weaned to RA, otherwise no change in physical assessment. CB in reach instructed to use
[2024-05-01] MEDS: MYLICON 80 MG PO ×2 (13:45→18:05)
[2024-05-01] MEDS: CRESTOR 10 MG PO (18:04)
[2024-05-01 18:54] LABS: Hematocrit 20.4 % (39.0-52.0); Hemoglobin 7.4 g/dL (13.0-18.0)
--- NOTE | 2024-05-01 20:00 | PTCARENOTE ---
rec`d pt resting in bed. AAOx3. assessment as documented. protonix gtt continued. PIVS flushed and patent. RA. POX 94%. call elizabeth in reach. safe environment maintained.
[2024-05-01] MEDS: SYMBICORT 160/4.5 MCG INHALER 2 PUFF INH (20:19)
[2024-05-01 23:01] LABS: Hematocrit 18.3 % (39.0-52.0); Hemoglobin 6.7 g/dL (13.0-18.0); Mean Corp Hgb Conc. 36.6 g/dL (33.0-37.0); Mean Corpuscular Hgb 30.3 pg (27.0-31.0); Mean Corpuscular Volume 82.8 fL (80.0-94.0); Mean Platelet Volume 11.7 fL (7.4-10.4); Platelet Count 56 10^3/uL (130-400); Red Blood Cell Count 2.21 10^6/uL (4.70-6.10); Red Cell Dist. Width 14.9 % (11.5-14.5); White Blood Cell Count 14.6 10^3/uL (4.8-10.8)
--- NOTE | 2024-05-01 23:15 | PTCARENOTE ---
hgb 6.7. platelets 56. FIELD REP aware. PRBCs ordered.
[2024-05-02] VITALS (35 sets, daily range): BP systolic 120–185; BP diastolic 61–143; BMI 30.6
[2024-05-02] MEDS: MYLICON 80 MG PO ×2 (03:19→10:12)
[2024-05-02 04:01] LABS: Hematocrit 21.1 % (39.0-52.0); Hemoglobin 7.7 g/dL (13.0-18.0); Mean Corp Hgb Conc. 36.5 g/dL (33.0-37.0); Mean Corpuscular Hgb 30.7 pg (27.0-31.0); Mean Corpuscular Volume 84.1 fL (80.0-94.0); Mean Platelet Volume 11.4 fL (7.4-10.4); Platelet Count 58 10^3/uL (130-400); Red Blood Cell Count 2.51 10^6/uL (4.70-6.10); Red Cell Dist. Width 14.5 % (11.5-14.5); White Blood Cell Count 17.9 10^3/uL (4.8-10.8)
[2024-05-02 04:45] LABS: Blood Urea Nitrogen 96 mg/dl (9-20); Calcium 6.7 mg/dl (8.4-10.2); Carbon Dioxide 25 mmol/L (22-30); Chloride 109 mmol/L (98-107); Estimated Creatinine Clearance 17 ml/min; Glucose 119 mg/dl (70-99); Potassium 4.3 mmol/L (3.5-5.1); Sodium 137 mmol/L (135-145); eGFR 13.57
--- NOTE | 2024-05-02 05:25 | W.PN.GI.CBS2 ---
Today's Communication / Plan
-
Please see assessment and plan for details.
Assessment / Plan
-
1. GI bleed : Secondary to duodenal Dieulafoy, status post epi, clip and tattoo. His hemoglobin has varied, though no further signs of significant gross bleeding, and anemia is likely multifactorial including retroperitoneal hematoma. At this
point, again, is clinically improving with no further gross bleeding. Advance to full liquid diet, can change Protonix drip to twice daily and continue close observation. Assuming continues to improve clinically likely able to advance diet
tomorrow. Plan repeat EGD with probable colonoscopy in 8 weeks.
Subjective
Subjective
Date of Service: May 02, 2024
Patient feeling better overall, no bowel movements overnight or yesterday evening. No vomiting, tolerated clears without difficulty. No chest pain or shortness of breath.
Objective
Data Reviewed
Laboratory Data:
Laboratory Results
05/02/24 03:50
05/02/24 03:50
Laboratory Results
PT 18.1 Sec (11.4-14.6) H 04/30/24 05:50
INR 1.47 04/30/24 05:50
APTT 31.0 Sec (23.4-35.0) 04/30/24 05:50
Phosphorus 4.5 mg/dl (2.5-4.5) 04/30/24 10:34
Magnesium 1.6 mg/dl (1.6-2.3) 04/30/24 10:34
Total Bilirubin 0.2 mg/dl (0.2-1.3) 04/30/24 05:50
AST 15 U/L (17-59) L 04/30/24 05:50
ALT 12 U/L (0-50) 04/30/24 05:50
Alkaline Phosphatase 33 U/L (38-126) L 04/30/24 05:50
Vital Signs and I&O:
Vital Signs
Temp Pulse Resp BP Pulse Ox
98.1 F 63 11 133/93 94
05/02/24 03:37 05/02/24 04:45 05/02/24 04:45 05/02/24 03:00 05/02/24 04:45
I&O
04/30/24 05/01/24 05/02/24
06:59 06:59 06:59
Intake Total 900 / 900 1125.0 / 1135.0 790 / 790
Balance 900 / 900 1125.0 / 1135.0 790 / 790
Physical Exam
Physical Exam
General: NAD
Abdomen: normal bowel sounds, soft, no tenderness, no masses or bruits, no ascites
[2024-05-02] MEDS: CALCIUM GLUCONATE 130 MG IV (06:39)
[2024-05-02] MEDS: SYMBICORT 160/4.5 MCG INHALER 2 PUFF INH ×2 (07:23→20:16)
[2024-05-02] MEDS: SPIRIVA RESPIMAT 2.5 MCG 2 PUFF INH (07:23)
[2024-05-02] MEDS: B COMPLEX w/VITAMIN C PO (07:40)
[2024-05-02] MEDS: VITAMIN C PO (07:40)
[2024-05-02] MEDS: VITAMIN D3 (cholecalciferol) PO (07:40)
[2024-05-02] MEDS: PROTONIX IV 40 MG IV ×2 (07:41→21:05)
[2024-05-02] MEDS: DELTASONE 60 MG PO (07:41)
[2024-05-02] MEDS: NSS (PRESERVATIVE FREE) 10 ML IV ×2 (07:41→21:02)
--- NOTE | 2024-05-02 07:41 | W.PN.HOSP.TC ---
Today's Communication/Plan
-
see bold
Assessment / Plan
Assessment / Plan
Mr. Robinson Yan is a 69 yo man with hx cryptogenic CVA, essential HTN, nonishcemic cardiomyopathy with recovered EF, VT s/p AICD sent to the ER from nephrology clinic for abnormal outpatient labs with elevated creatinine.
Patient has a history of anginal immune complex glomerulonephritis diagnosed 13 years ago. He declined steroids at this time, lost to follow up then referred to Renal Clinic with creatinine 1.6 in October 2023. Proteinuria > 19G. He has had
significant increase in creatinine since then prompting ER visit and admission.
Acute Renal Failure with significant progression over past 4-6 months
Hx Anginal Immune Complex Glomerulonephritis
Nephrotic Proteinuria
+ Casts
- referred to ED from Nephrology at [place] for abnormal labs out patient
- renal US without hydronephrosis, + casts and 4+ albumin
- appreciate nephrology input, status post kidney biopsy 04/28�preliminary with MPGN
- s/p 3 days pulse steroids, now on oral steroids
- s/p lasix, continue sodium bicarb per renal
- s/p permacath insertion 04/29 for dialysis
- started on dialysis 05/01, continue dialysis as per nephrology
Massive UGIB
- Appreciate GI input, 04/30 colonoscopy shows red blood in the gastric fundus, duodenal erosions without bleeding, Visible vessel consistent with a Dieulofoy thought to be likely source of bleeding, which was clipped and injected with epinephrine
- Cleared for full liquid diet, PPI drip changed to Protonix 40 mg IV twice daily
- Will need repeat EGD in 8 weeks outpatient, strict NSAID avoidance
Hemorrhagic shock
Acute blood loss anemia
-Patient getting 7th unit of blood
-Trend hemoglobin, transfuse as needed
Code 9 on 04/30
-Patient temporarily lost his pulse full a few seconds with agonal breathing, received CPR with ROSC, no meds needed
Musculoskeletal chest pain
-From CPR
Hypokalemia
- replete prn
Hx CVA
- hold aspirin, GI says can resume in 1 week on 05/08/24
#essential hypertension
- hold hydralazine, resumed Coreg 05/02
#hypercholesterolemia
- continue rosuvastatin
#nonischemic cardiomyopathy
- hold DISPATCHER RADIOACTIVE WASTE DISPOSAL eplerenone
- hold Lasix
- resume carvedilol (dose increased)
- appreciate Cardiology consult
#COPD
- continue albuterol
#Hx ventricular tachycardia s/p dual ICD
EKG: Atrial-paced rhythm
PROLONGED QT
-hold Sotalol in setting of renal failure
-appreciate Cardiology
DVT prophylaxis�SCDs
Full code
Total time spent to see the patient on the floor, examine the patient, review data and lab results, discuss treatment plan with patient, nursing staff around 51 minutes.
Physical Exam
General: No acute distress
HEENT: Normocephalic, Atraumatic, EOMI, MMM
Respiratory: Clear to Auscultation bilaterally
Cardiac: Normal S1/S2, Regular Rate and Rhythm
GI: Soft, Nontender, Nondistended, Normal Bowel Sounds
Extremities: No Clubbing, Cyanosis, or Edema
Neuro: Nonfocal/Grossly Intact
Psych: Calm, Cooperative
Derm: Pale
Anticipated Discharge: > 48 hours
Subjective/Interval History
-
Date of Service: May 02, 2024
Patient had a black bowel movement. No fever, no shortness of breath. Reports his musculoskeletal chest pain from the CPR is improved.
Objective Data
-
Labs:
Laboratory Results
05/01/24 05/02/24 05/02/24
22:44 03:50 03:50
WBC 14.6 H 17.9 H
Hgb 6.7 L* 7.7 L Cancelled
Hct 18.3 L* 21.1 L
Plt Count 56 L D
Sodium
Potassium
Chloride
Carbon Dioxide
BUN
Creatinine
Glucose
Calcium
05/02/24
03:50
WBC
Hgb
Hct Cancelled
Plt Count 58 L
Sodium 137
Potassium 4.3
Chloride 109 H
Carbon Dioxide 25
BUN 96 H
Creatinine 4.5 H*
Glucose 119 H
Calcium 6.7 L*
Vital Signs:
Vital Signs
Temp Pulse Resp BP Pulse Ox
98.1 F 62 16 133/93 96
05/02/24 03:37 05/02/24 07:24 05/02/24 07:24 05/02/24 03:00 05/02/24 07:24
I&O
05/01/24 05/02/24 05/03/24
06:59 06:59 06:59
Intake Total 1125.0 / 1135.0 810 / 810
Balance 1125.0 / 1135.0 810 / 810
--- NOTE | 2024-05-02 08:12 | W.PN.INTV ---
Today's Communication / Plan
Recommendations
PPI drip to twice daily IV 40 mg
Tylenol for pain
HD today
Repeat H&H
Full liquid diet today
Assessment
-
# Bright red blood per rectum/acute GI bleed due to brisk secondary to Dieulafoy lesion in the second part of duodenum; s/p injection with epi plus clipped
#GI bleed- CTA 04/30 with large intraluminal hemorrhoid but no extravasion
#anemia acute blood loss with hypovolemic shock
#severe gastritis per CT
#RP hematoma 5.[address] but noted [address] Edwards s/p renal bx
#ESRD with new start HD 04/29 with recent renal bx
#diverticulosis
#severe GB wall edema per CA
#mild coagulopathy
#hx colon polyp 2012 without follow up
#COPD
#VT -ICD
#CVA
Plan:
s/p 7 units of PRBC: transfuse to keep Hb>7, plt>50k
Colorectal does not recommend any surgical intervention at this time
GI following; diet increase to full liquids today with plan to advance to tomorrow
d/c PPI drip; start Protonix IV 40 mg twice daily
Hold all antiplatelets + anticoagulants for now
Continue prednisone
Biopsy results pending
HD today
Increasing WBC likely reactive
Maintain MAP > 65; currently at Levophed at 2mcg
Maintain blood glucose 140�180
Replete electrolytes with K>4, Mg>2
continue Symbicort + Spiriva while hospitalized and resume Trelegy upon discharge
Data: EGD 04/30/24
Impression: - Normal esophagus.
- Z-line irregular.
- Medium-sized hiatal hernia.
- Red blood in the gastric fundus.
- Congestive gastropathy.
- Duodenal erosions without bleeding.
- Blood in the second portion of the duodenum.
- No specimens collected.
Continue with ICU level of care
Subjective Dataa
Subjective Data
Date of Service:
Date of Service: May 02, 2024
Chief Complaint: Mix Mill Tender Follow Up
Subjective:
Patient seen and evaluated in the AM. Offers no new complaints. Hemoglobin dropped to 6.7 last night and patient received 1 unit of PRBCs overnight. Vitals in the morning 133/93, pulse 62, respiratory rate 16, temperature 98.3, O2 sat 96% on room
Review of Systems
General: Fever
GI: Abdominal Pain (no), Nausea (No), Vomiting (No), Melena (No) and Other (Mild bloating)
Objective Data
Data Reviewed
Vital Signs / I&O / Oxygen:
Vital Signs
Temp Pulse Resp BP Pulse Ox
98.1 F 62 16 133/93 96
05/02/24 03:37 05/02/24 07:24 05/02/24 07:24 05/02/24 03:00 05/02/24 07:24
Intake and Output
05/01/24 05/02/24 05/03/24
06:59 06:59 06:59
Intake Total 1125.0 / 1135.0 810 / 810
Balance 1125.0 / 1135.0 810 / 810
SaO2 96
Nasal Cannula flow liters per 2
minute
Physical Exam
General: Comfortable
HEENT: Moist Mucous Membranes
Cardiovascular: S1-S2 and Regular Rhythm
Respiratory: Clear and Non-Labored Respirations
GI: Soft, Non Distended, Non Tender and Normal Bowel Sounds
Neurology: Awake, Alert and Oriented
Skin: Warm, Dry and Other (Bilateral pedal edema)
Labs/Micro/Reports
Lab Data
05/02/24 03:50
05/02/24 03:50
--- NOTE | 2024-05-02 08:14 | W.PN.CD ---
Today's Communication / Plan
-
Resume Coreg 12.5 TID
Monitor on tele
Resume ASA only when/if it is safe, ASA was for a prior ischemic stroke. Defer to medicine/renal/GI.
Ablation OR Amio will be pursued if Coreg cannot control VT
Cardiology will sign off. Please call with questions. Our device nurse will monitor his ICD more frequently to assess PVC/NSVT burden and we will be alerted for treated VT/VF.
He will see me in the office routinely
Impression / Plan
-
Robinson Yan is a 69-year-old man with prior cryptogenic stroke, hypertension, nonischemic cardiomyopathy (recovered EF), sustained VT status post ICD, and CKD who presented to ER with acute renal failure discovered on outpatient labs.
Cardiology was consulted for his history of cardiomyopathy and VT.
Severe/massive upper GI bleed with severe blood loss anemia from a Dieulafoy lesion in the duodenum that was injected with epinephrine and clipped
ASA was for a remote ischemic stroke => Resume when/if safe
Blood loss anemia
- Mixture of the upper GI bleed and the retroperitoneal hematoma
- So far 7 U PRBC have been transfused
Retroperitoneal hematoma
Acute on chronic renal failure
- Now s/p biopsy
- HD
Hx of prior sustained VT, status post ICD
- Coreg had been on hold with the instability
- He had 4 beats of a rapid VT around 0730 hrs today 05/02/2024 => resuming Coreg
- No treated VT for more than 3 yrs on sotalol
- Trying Coreg 12.5 TID. In past 25 BID not well tolerated
- Wont use sotalol when he is on renal replacement therapy (PD or HD)
- Ablation OR Amio will be pursued if Coreg cannot control VT
Nonischemic cardiomyopathy with improved EF, chronic.
- EF 29% at cath 10/2018 with normal coronaries.
- EF by echo in 2019 was 40-45%
- LVEF 04/24/2024: LVEF 55-60%, no valvular disease
- Volume control per nephrology
- Heart failure has not been an active problem, volume overload seen from his renal failure
Prior CVA
- He reports not taking aspirin at home. Unclear why.
- Continue statin (rosuvastatin 10 mg max with ESRD)
- No hx of Afib and AFib has never been seen on his dual ICD checks
- Aspirin indication is prior CVA (visual field cut and + CT) and not cardiac indication
- Resume ASA when/if safe
Hypertension
- Per nephrology
Subjective: No CP or dyspnea.
Physical Exam
Vital Signs/Labs
Vital Signs
Temp Pulse Resp BP Pulse Ox
98.1 F 62 16 133/93 96
05/02/24 03:37 05/02/24 07:24 05/02/24 07:24 05/02/24 03:00 05/02/24 07:24
05/01/24 05/02/24 05/03/24
06:59 06:59 06:59
Actual Weight 97 kg 99.5 kg
05/02/24 03:50
05/02/24 03:50
PT 18.1 Sec (11.4-14.6) H 04/30/24 05:50
INR 1.47 04/30/24 05:50
APTT 31.0 Sec (23.4-35.0) 04/30/24 05:50
Magnesium 1.6 mg/dl (1.6-2.3) 04/30/24 10:34
04/23/24
21:50
Jwe-U-Utdbtbpycfg Pept 2370
Physical Exam
Constitutional: No acute distress
EENT: Anicteric
Cardiovascular: Rhythm & rate is regular and Pedal edema is absent
Respiratory: Respiratory effort normal and Lungs clear to auscul.
GI: Soft and Distention absent
Neuro/Psych: AO x 3
Data Reviewed
-
Date of Service: May 02, 2024
--- NOTE | 2024-05-02 08:35 | W.PN.NEPH.HD ---
Assessment
-
Patient seen on dialysis
Today will be the patient's third dialysis treatment
UF limited by marginal hemodynamics despite gross volume overload in setting of super nephrotic range proteinuria
Diagnosis by renal biopsy preliminary with MPGN
Currently remains on steroids although I do not believe this will be efficacious given the degree of proteinuria and now HD dependent
Will consider ultrafiltration treatment over the weekend
Progress Note - Hemodialysis
-
Date of Service: May 02, 2024
Duration: 3 hours
Potassium Bath: 3
Calcium Bath: 2.5
Opti-Dialyzer: 160
Ultrafiltration: Other (1kg as hemodynamically tolerated)
Blood Flow: 300
Dialysate Flow: 600
Heparin: none
EPO: given
--- NOTE | 2024-05-02 09:04 | PTCARENOTE ---
patient report received, assessments per work list. refusing some po meds and nicotene patch, 'I quit smoking years ago'. assistant superintendent for curriculum at bedside. orders received. HD RN initiating HD, requesting stat dose coreg not be given until HD completed. call
elizabeth in reach
[2024-05-02] MEDS: RETACRIT 8000 UNITS IV (11:06)
[2024-05-02 11:56] LABS: Hemoglobin 9.2 g/dL (13.0-18.0); Mean Corp Hgb Conc. 36.8 g/dL (33.0-37.0); Mean Corpuscular Hgb 30.8 pg (27.0-31.0); Mean Corpuscular Volume 83.6 fL (80.0-94.0); Mean Platelet Volume 11.4 fL (7.4-10.4); Platelet Count 49 10^3/uL (130-400); Red Blood Cell Count 2.99 10^6/uL (4.70-6.10); Red Cell Dist. Width 14.2 % (11.5-14.5); White Blood Cell Count 28.1 10^3/uL (4.8-10.8)
[2024-05-02] MEDS: HEPARIN 4300 UNITS INTRACATH (11:59)
[2024-05-02] MEDS: COREG 12.5 MG PO ×3 (12:24→22:21)
--- NOTE | 2024-05-02 12:32 | CM ---
CM following re: discharge planning.
Reviewed pt's chart, met with pt.
ELISE received an invitation letter from [facility] [employer] confirming that pt is accepted for outpatient HD treatment at [facility] on [facility], [facility], chair time 4:00 p.m. The invitation letter given to the pt and pt expressed his great
satisfaction. Tentative outpatient HD treatment is scheduled for Sunday05/07/24
ELISE spoke to [facility] corporate auditor Rand [phone] and she confirmed of secured chair at [facility]. Requested pt's
H&P faxed to [facility] corporate.
ELISE spoke to [facility] liajenni Taylor and he confirmed ot pt's secured chair at [facility] on [facility].
Pt stated he will be working with [facility] to have PD in the future.
D/C plan: home with outpatient HD treatment at [facility] on [facility] and family support.
CM will follow with discharge plan updates as needed.
[2024-05-02] MEDS: BACTRIM 400 MG/80 MG 1 TABLET PO (13:39)
--- NOTE | 2024-05-02 13:41 | PTCARENOTE ---
reassessed. HD completed without issues. tolerating full liquids, had liquid black stool this am on bedpan
--- NOTE | 2024-05-02 14:42 | PTCARENOTE ---
oob to chair, tolerated with assist of 2 and rolling walker. to bedside commode. increased flatus and moderate amount watery black burgundy stool. call elizabeth in reach
[2024-05-02] MEDS: TYLENOL 650 MG PO ×2 (15:39→22:21)
--- NOTE | 2024-05-02 15:44 | PTCARENOTE ---
reassessed, remains oob to chair. spouse at bedside. patient c/o chest discomfort with deep breath and laughing. medicated with tylenol per patient request. down grade to IMU. patient and spouse updated
[2024-05-02] MEDS: CRESTOR 10 MG PO (18:19)
--- NOTE | 2024-05-02 22:30 | PTCARENOTE ---
Received pt at shift change; AAOx3, able to make needs known, pt states he 'feels great', c/o mild pain to the midsternum, PRN Tylenol administered, see MAR. A-paced on the monitor. Tolerating RA with SpO2 94%, lungs sound diminished at the bases.
+bowel sounds, round/obese belly. Continent B/B, pt acknowledges he is to call for assistance before attempting to get out of bed for the bedside commode. Remainder of assessment as documented. Scheduled medications administered as ordered, see MAR.
Pt resting comfortably in bed, PM hygiene completed, pt offers no other complaints at this time, call elizabeth within reach.
[2024-05-03] VITALS (18 sets, daily range): BP systolic 124–170; BP diastolic 74–98; BMI 30.3
[2024-05-03 05:01] LABS: Hematocrit 18.9 % (39.0-52.0); Hemoglobin 6.9 g/dL (13.0-18.0); Mean Corp Hgb Conc. 36.5 g/dL (33.0-37.0); Mean Corpuscular Hgb 30.4 pg (27.0-31.0); Mean Corpuscular Volume 83.3 fL (80.0-94.0); Platelet Count 54 10^3/uL (130-400); Red Blood Cell Count 2.27 10^6/uL (4.70-6.10); White Blood Cell Count 15.8 10^3/uL (4.8-10.8)
[2024-05-03 05:18] LABS: ALT (SGPT) 12 U/L (0-50); AST (SGOT) 21 U/L (17-59); Albumin 1.6 g/dl (3.5-5.0); Alkaline Phosphatase 39 U/L (38-126); Blood Urea Nitrogen 61 mg/dl (9-20); Calcium 7.7 mg/dl (8.4-10.2); Carbon Dioxide 27 mmol/L (22-30); Chloride 106 mmol/L (98-107); Estimated Creatinine Clearance 23 ml/min; Glucose 120 mg/dl (70-99); Magnesium 1.7 mg/dl (1.6-2.3); Potassium 3.9 mmol/L (3.5-5.1); Sodium 137 mmol/L (135-145); Total Bilirubin 0.5 mg/dl (0.2-1.3); Total Protein 3.4 g/dl (6.3-8.2); eGFR 17.16
[2024-05-03] MEDS: TYLENOL 650 MG PO ×2 (06:26→21:00)
--- NOTE | 2024-05-03 06:40 | PTCARENOTE ---
AM Hgb resulted 6.9, covering SQL ANALYST notified, order obtained for 1 unit PRBC, awaiting blood from blood bank. Pt updated on POC for the morning.
[2024-05-03] MEDS: SPIRIVA RESPIMAT 2.5 MCG 2 PUFF INH (07:35)
[2024-05-03] MEDS: SYMBICORT 160/4.5 MCG INHALER 2 PUFF INH ×2 (07:35→19:59)
[2024-05-03] MEDS: B COMPLEX w/VITAMIN C 1 CAPLET PO (07:36)
[2024-05-03] MEDS: DELTASONE 60 MG PO (07:36)
[2024-05-03] MEDS: COREG 12.5 MG PO ×3 (07:37→20:59)
[2024-05-03] MEDS: NSS (PRESERVATIVE FREE) 10 ML IV ×2 (07:37→20:59)
[2024-05-03] MEDS: PROTONIX IV 40 MG IV ×2 (07:37→20:59)
[2024-05-03] MEDS: VITAMIN D3 (cholecalciferol) 50 MCG PO (07:38)
[2024-05-03] MEDS: VITAMIN C 1000 MG PO (07:38)
--- NOTE | 2024-05-03 07:58 | W.PN.GI.CBS2 ---
Today's Communication / Plan
-
Please see assessment and plan for details.
Assessment / Plan
-
1. GI bleed : Secondary to duodenal Dieulafoy, status post epi, clip and tattoo. His hemoglobin has varied, though no further signs of significant gross bleeding, and anemia is likely multifactorial including retroperitoneal hematoma. Without
further gross bleeding, overall feeling well and stable hemodynamics will hold on repeat endoscopy for now. He is getting transfused again, continue PPI twice daily and full liquids for today. If signs of significant rebleeding then we will repeat
EGD, though we will hold for now.
Subjective
Subjective
Date of Service: May 03, 2024
Patient feeling well this morning, no abdominal pain, nausea or vomiting, tolerated liquids without difficulty. Had 2 bowel movements yesterday, black with small mount of red, though smaller amounts and after that yesterday he feels much better
overall, less gas, no abdominal distention.
Objective
Data Reviewed
Laboratory Data:
Laboratory Results
05/03/24 04:32
05/03/24 04:32
Laboratory Results
PT 18.1 Sec (11.4-14.6) H 04/30/24 05:50
INR 1.47 04/30/24 05:50
APTT 31.0 Sec (23.4-35.0) 04/30/24 05:50
Phosphorus 4.0 mg/dl (2.5-4.5) 05/03/24 04:32
Magnesium 1.7 mg/dl (1.6-2.3) 05/03/24 04:32
Total Bilirubin 0.5 mg/dl (0.2-1.3) 05/03/24 04:32
AST 21 U/L (17-59) 05/03/24 04:32
ALT 12 U/L (0-50) 05/03/24 04:32
Alkaline Phosphatase 39 U/L (38-126) 05/03/24 04:32
Vital Signs and I&O:
Vital Signs
Temp Pulse Resp BP Pulse Ox
98.3 F 64 18 157/82 92
05/03/24 07:25 05/03/24 07:37 05/03/24 07:36 05/03/24 07:37 05/03/24 07:36
I&O
05/02/24 05/03/24 05/04/24
06:59 06:59 06:59
Intake Total 810 / 810 1440 / 1440
Output Total 650 / 650
Balance 810 / 810 790 / 790
Physical Exam
Physical Exam
General: NAD
Abdomen: normal bowel sounds, soft, no tenderness, no masses or bruits, no ascites
--- NOTE | 2024-05-03 08:51 | W.PN.NEPH.PH ---
Today's Communication / Plan
-
Isolated UF treatment tomorrow
For additional blood products today given worsening anemia
Assessment/Plan
-
Assessment
Nephrotic range proteinuria
SANTOS progressive
Hypokalemia
Metabolic acidosis
Edema/anasarca
hypertension
Pacemaker
History cryptogenic stroke
Plan
s/p K biopsy 04/28= results consistent with MPGN
paraprotein, serologies w/u neg in Dec
completed pulse steroids and on PO steroid now
Hemoglobin continues to fall another 2 g overnight
GI status post endoscopy= Dieulafoy
Will attempt isolated UF treatment tomorrow
Set up at [place] [facility] MWF third shift

35 minutes of critical care time
-
-
Date of Service: May 03, 2024
CC / HPI / ROS
-
Chief Complaint:
Acute kidney injury
History of Present Illness:
Presents with edema and worsening renal function and proteinuria requiring hemodialysis
Acute kidney injury now on dialysis
Hemoglobin continues to drop from 9.2-6.9
Status post acute GI bleed 04/30
Review of Systems:
no hematuria
No chest pain or shortness of breath
Labs
-
Labs:
WBC 15.8 10^3/uL (4.8-10.8) H 05/03/24 04:32
RBC 2.27 10^6/uL (4.70-6.10) L 05/03/24 04:32
Hgb 6.9 g/dL (13.0-18.0) L* D 05/03/24 04:32
Hct 18.9 % (39.0-52.0) L* 05/03/24 04:32
Plt Count 54 10^3/uL (130-400) L 05/03/24 04:32
Sodium 137 mmol/L (135-145) 05/03/24 04:32
Potassium 3.9 mmol/L (3.5-5.1) 05/03/24 04:32
Chloride 106 mmol/L (98-107) 05/03/24 04:32
Carbon Dioxide 27 mmol/L (22-30) 05/03/24 04:32
BUN 61 mg/dl (9-20) H 05/03/24 04:32
Creatinine 3.7 mg/dL (0.7-1.3) H 05/03/24 04:32
eGFR 17.16 05/03/24 04:32
Glucose 120 mg/dl (70-99) H 05/03/24 04:32
Calcium 7.7 mg/dl (8.4-10.2) L 05/03/24 04:32
Phosphorus 4.0 mg/dl (2.5-4.5) 05/03/24 04:32
Hsw-U-Hffaxtanufo Pept 2370 pg/ml 04/23/24 21:50
Albumin 1.6 g/dl (3.5-5.0) L 05/03/24 04:32
Physical Exam
-
Vital Signs:
Vital Signs
Temp Pulse Resp BP Pulse Ox
98.4 F 64 20 155/83 98
05/03/24 08:34 05/03/24 08:34 05/03/24 08:34 05/03/24 08:34 05/03/24 08:37
Respiratory:: Bilateral: CTA
Lung Excursion:: Normal
Abdomen:: Nontender and Soft
Bowel Sounds:: Normal
Extremity Edema:: +1: Bilateral:
Escudero Catheter: No
--- NOTE | 2024-05-03 08:57 | W.PN.HOSP.TC ---
Today's Communication/Plan
-
Monitor hemoglobin
Continue transfusions as needed
Assessment / Plan
Assessment / Plan
Mr. Robinson Yan is a 69 yo man with hx cryptogenic CVA, essential HTN, nonishcemic cardiomyopathy with recovered EF, VT s/p AICD sent to the ER from nephrology clinic for abnormal outpatient labs with elevated creatinine.
Patient has a history of anginal immune complex glomerulonephritis diagnosed 13 years ago. He declined steroids at this time, lost to follow up then referred to Renal Clinic with creatinine 1.6 in October 2023. Proteinuria > 19G. He has had
significant increase in creatinine since then prompting ER visit and admission.
Acute Renal Failure with significant progression over past 4-6 months
Hx Anginal Immune Complex Glomerulonephritis
Nephrotic Proteinuria
+ Casts
- referred to ED from Nephrology at [place] for abnormal labs out patient
- renal US without hydronephrosis, + casts and 4+ albumin
- appreciate nephrology input, status post kidney biopsy 04/28�showing MPGN
- s/p 3 days pulse steroids, now on oral steroids
- s/p lasix, continue sodium bicarb per renal
- s/p permacath insertion 04/29 for dialysis
- started on dialysis 05/01, continue dialysis as per nephrology
- has outpatient dialysis chair set up at [place] [facility] third shift
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
Gastritis
- Appreciate GI input, 04/30 colonoscopy shows red blood in the gastric fundus, duodenal erosions without bleeding, Visible vessel consistent with a Dieulofoy thought to be likely source of bleeding, which was clipped and injected with epinephrine
- Continue full liquid diet, PPI drip changed to Protonix 40 mg IV twice daily
- Will need repeat EGD in 8 weeks outpatient, strict NSAID avoidance
Hemorrhagic shock
Acute blood loss anemia
-Patient getting 8th unit of blood
-Trend hemoglobin, transfuse as needed
Acute right retroperitoneal hematoma
-04/30 CT shows 5.1 cm acute right retroperitoneal hematoma
Code 9 on 04/30
-Patient temporarily lost his pulse full a few seconds with agonal breathing, received CPR with ROSC, no meds needed
Musculoskeletal chest pain
-From CPR
Hypokalemia
- replete prn
Hx CVA
- hold aspirin, GI says can resume in 1 week on 05/08/24
#essential hypertension
- hold hydralazine, resumed Coreg 05/02
#hypercholesterolemia
- continue rosuvastatin
#nonischemic cardiomyopathy
- hold DOUBLE BACK OPERATOR eplerenone
- hold Lasix
- resume carvedilol (dose increased)
- appreciate Cardiology consult
#COPD
- continue albuterol
#Hx ventricular tachycardia s/p dual ICD
EKG: Atrial-paced rhythm
PROLONGED QT
-hold Sotalol in setting of renal failure
-appreciate Cardiology
DVT prophylaxis�SCDs
Full code
Total time spent to see the patient on the floor, examine the patient, review data and lab results, discuss treatment plan with patient, nursing staff around 50 minutes.
Physical Exam
General: No acute distress
HEENT: Normocephalic, Atraumatic, EOMI, MMM
Respiratory: Clear to Auscultation bilaterally
Cardiac: Normal S1/S2, Regular Rate and Rhythm
GI: Soft, Nontender, Nondistended, Normal Bowel Sounds
Extremities: No Clubbing, Cyanosis, or Edema
Neuro: Nonfocal/Grossly Intact
Psych: Calm, Cooperative
Derm: Pale
Anticipated Discharge: > 48 hours
Subjective/Interval History
-
Date of Service: May 03, 2024
Patient had 2 episodes of black stools yesterday. Denies shortness of breath. Has some chest soreness from chest compressions. No fever, no vomiting.
Objective Data
-
Labs:
Laboratory Results
05/03/24
04:32
WBC 15.8 H
Hgb 6.9 L* D
Hct 18.9 L*
Plt Count 54 L
Sodium 137
Potassium 3.9
Chloride 106
Carbon Dioxide 27
BUN 61 H
Creatinine 3.7 H
Glucose 120 H
Calcium 7.7 L
Total Bilirubin 0.5
AST 21
ALT 12
Alkaline Phosphatase 39
Vital Signs:
Vital Signs
Temp Pulse Resp BP Pulse Ox
98.4 F 64 20 155/83 98
05/03/24 08:34 05/03/24 08:34 05/03/24 08:34 05/03/24 08:34 05/03/24 08:37
I&O
05/02/24 05/03/24 05/04/24
06:59 06:59 06:59
Intake Total 810 / 810 1440 / 1440 240 / 240
Output Total 650 / 650
Balance 810 / 810 790 / 790 240 / 240
--- NOTE | 2024-05-03 09:14 | PTCARENOTE ---
Update with nephrology, GI and ticket printer and tagger team. Continue with orders and follow up as ordered. PRBC up as ordered will follow up H/H trends as ordered. IMU status is recommended to keep follow lab, assessment, bowel trends. Planning for HD tomorrow
am as ordered. Will follow up with nephrology and pharmacy. Continue ongoing teaching, supportive cares and emotional support.
--- NOTE | 2024-05-03 11:31 | PTCARENOTE ---
Ambulate room with staff. One person light assist. Supervision to bathroom. Loose dark brown watery stool noted. VSS thru transition and return to chair. No complaints to offer. Very steady gait, posture and overall strength with any transitions.
[facility] completed TAR protocol follow up documentation. Hospitalist at [facility] updated and follow up plan of cares.
[2024-05-03 14:52] LABS: Hemoglobin 9.3 g/dL (13.0-18.0)
--- NOTE | 2024-05-03 15:03 | PTCARENOTE ---
Repeat hgb 9.3. Tolerates po full liquid. Continues to work on mobility and ambulation. at [facility]. Will update critical care team lab trends and follow up assessments. Continue hourly rounds and frequent patient safety checks.
[2024-05-03] MEDS: CRESTOR 10 MG PO (17:51)
[2024-05-04] VITALS (21 sets, daily range): BP systolic 131–174; BP diastolic 72–105; BMI 30.6
--- NOTE | 2024-05-04 00:14 | PTCARENOTE ---
Assumed care of pt at 1900. Pt is A/O x4, pleasant and cooperative with care. No c/o pain except with movements that involve his chest d/t soreness 2/2 chest compressions earlier in the week. Tolerating full liquids. A-paced on monitor. See nursing
shift assessment flowsheet for full physical assessment details. Pt is IMU level of care.
[2024-05-04 04:31] LABS: Hematocrit 21.7 % (39.0-52.0); Hemoglobin 7.8 g/dL (13.0-18.0); Mean Corp Hgb Conc. 35.9 g/dL (33.0-37.0); Mean Corpuscular Hgb 30.5 pg (27.0-31.0); Mean Corpuscular Volume 84.8 fL (80.0-94.0); Mean Platelet Volume 11.1 fL (7.4-10.4); Platelet Count 79 10^3/uL (130-400); Red Blood Cell Count 2.56 10^6/uL (4.70-6.10); Red Cell Dist. Width 13.6 % (11.5-14.5); White Blood Cell Count 18.5 10^3/uL (4.8-10.8)
--- NOTE | 2024-05-04 07:52 | W.PN.GI.CBS2 ---
Today's Communication / Plan
-
Please see assessment and plan for details.
Assessment / Plan
-
1. GI bleed : Secondary to duodenal Dieulafoy, status post epi, clip and tattoo. His hemoglobin has varied, though no further signs of significant gross bleeding, and anemia is likely multifactorial including retroperitoneal hematoma. Without
further gross GI bleeding, overall feeling well and stable hemodynamics will hold on repeat endoscopy for now. Will continue PPI twice daily, advance diet today.
Subjective
Subjective
Date of Service: May 04, 2024
Patient feeling very well, no signs of bleeding, per nursing had brown stool and green stool this morning. He denies any abdominal pain, has much more energy, and feeling well.
Objective
Data Reviewed
Laboratory Data:
Laboratory Results
05/04/24 04:10
05/03/24 04:32
Laboratory Results
PT 18.1 Sec (11.4-14.6) H 04/30/24 05:50
INR 1.47 04/30/24 05:50
APTT 31.0 Sec (23.4-35.0) 04/30/24 05:50
Phosphorus 4.0 mg/dl (2.5-4.5) 05/03/24 04:32
Magnesium 1.7 mg/dl (1.6-2.3) 05/03/24 04:32
Total Bilirubin 0.5 mg/dl (0.2-1.3) 05/03/24 04:32
AST 21 U/L (17-59) 05/03/24 04:32
ALT 12 U/L (0-50) 05/03/24 04:32
Alkaline Phosphatase 39 U/L (38-126) 05/03/24 04:32
Vital Signs and I&O:
Vital Signs
Temp Pulse Resp BP Pulse Ox
98.3 F 63 17 153/101 95
05/04/24 07:11 05/04/24 06:06 05/04/24 06:06 05/04/24 06:06 05/03/24 21:04
I&O
05/03/24 05/04/24 05/05/24
06:59 06:59 06:59
Intake Total 1440 / 1440 1140 / 1140
Output Total 650 / 650 475 / 475
Balance 790 / 790 665 / 665
Physical Exam
Physical Exam
General: NAD
Abdomen: normal bowel sounds, soft, no tenderness, no masses or bruits, no ascites
[2024-05-04] MEDS: SYMBICORT 160/4.5 MCG INHALER 2 PUFF INH ×2 (08:04→20:44)
[2024-05-04] MEDS: SPIRIVA RESPIMAT 2.5 MCG 2 PUFF INH (08:04)
[2024-05-04] MEDS: B COMPLEX w/VITAMIN C 1 CAPLET PO (08:09)
[2024-05-04] MEDS: DELTASONE 60 MG PO (08:09)
[2024-05-04] MEDS: COREG 12.5 MG PO ×3 (08:09→21:59)
[2024-05-04] MEDS: VITAMIN C 1000 MG PO (08:09)
[2024-05-04] MEDS: NSS (PRESERVATIVE FREE) 10 ML IV ×2 (08:10→19:46)
[2024-05-04] MEDS: PROTONIX IV 40 MG IV ×2 (08:10→19:46)
[2024-05-04] MEDS: VITAMIN D3 (cholecalciferol) 50 MCG PO (08:10)
--- NOTE | 2024-05-04 08:47 | PTCARENOTE ---
Updated patient assessment, vital signs ongoing and as documented. Update with GI team, advance diet as ordered. Update with nephrology HD/treatment planned this later today. Patient ambulating room with confidence, steady gait, supervision only.
Presently out of bed to chair with no complaints to offer. Verbalized satisfaction of cares at this assessment.
--- NOTE | 2024-05-04 08:56 | W.PN.HOSP.TC ---
Today's Communication/Plan
-
Stable for telemetry
Assessment / Plan
Assessment / Plan
Mr. Robinson Yan is a 69 yo man with hx cryptogenic CVA, essential HTN, nonishcemic cardiomyopathy with recovered EF, VT s/p AICD sent to the ER from nephrology clinic for abnormal outpatient labs with elevated creatinine.
Patient has a history of anginal immune complex glomerulonephritis diagnosed 13 years ago. He declined steroids at this time, lost to follow up then referred to Renal Clinic with creatinine 1.6 in October 2023. Proteinuria > 19G. He has had
significant increase in creatinine since then prompting ER visit and admission.
Acute Renal Failure with significant progression over past 4-6 months
Hx Anginal Immune Complex Glomerulonephritis
Nephrotic Proteinuria
+ Casts
- referred to ED from Nephrology at [place] for abnormal labs out patient
- renal US without hydronephrosis, + casts and 4+ albumin
- appreciate nephrology input, status post kidney biopsy 04/28�showing MPGN
- s/p 3 days pulse steroids, now on oral steroids
- s/p lasix, continue sodium bicarb per renal
- s/p permacath insertion 04/29 for dialysis
- started on dialysis 05/01, continue dialysis as per nephrology
- has outpatient dialysis chair set up at [place] [facility] third shift
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
Gastritis
- Appreciate GI input, 04/30 colonoscopy shows red blood in the gastric fundus, duodenal erosions without bleeding, Visible vessel consistent with a Dieulofoy thought to be likely source of bleeding, which was clipped and injected with epinephrine
- Advanced to regular diet, PPI drip changed to Protonix 40 mg IV twice daily
- Will need repeat EGD in 8 weeks outpatient, strict NSAID avoidance
Hemorrhagic shock
Acute blood loss anemia
-Status post 8 units of packed red blood cells
-Hemoglobin improved, but still low, trend hemoglobin, transfuse as needed
Acute right retroperitoneal hematoma
-04/30 CT shows 5.1 cm acute right retroperitoneal hematoma
-Consider repeating CAT scan if hemoglobin trends down
Code 9 on 04/30
-Patient temporarily lost his pulse full a few seconds with agonal breathing, received CPR with ROSC, no meds needed
Musculoskeletal chest pain
-From CPR
-Tylenol, pain meds
Hypokalemia
- replete prn
Hx CVA
- hold aspirin, GI says can resume in 1 week on 05/08/24
#essential hypertension
- Resume hydralazine at decreased dose of 25 mg 3 times a day 05/04 (was on 50 mg TID), resumed Coreg 05/02
#hypercholesterolemia
- continue rosuvastatin
#nonischemic cardiomyopathy
- hold SILVERWARE ETCHER eplerenone
- hold Lasix
- resume carvedilol (dose increased)
- appreciate Cardiology consult
#COPD
- continue albuterol
#Hx ventricular tachycardia s/p dual ICD
EKG: Atrial-paced rhythm
PROLONGED QT
-hold Sotalol in setting of renal failure
-appreciate Cardiology
DVT prophylaxis�SCDs
Full code
Total time spent to see the patient on the floor, examine the patient, review data and lab results, discuss treatment plan with patient, nursing staff around 51 minutes.
Physical Exam
General: No acute distress
HEENT: Normocephalic, Atraumatic, EOMI, MMM
Respiratory: Clear to Auscultation bilaterally
Cardiac: Normal S1/S2, Regular Rate and Rhythm
GI: Soft, Nontender, Nondistended, Normal Bowel Sounds
Extremities: No Clubbing, Cyanosis, or Edema
Neuro: Nonfocal/Grossly Intact
Psych: Calm, Cooperative
Derm: Pale
Anticipated Discharge: 24 - 48 hours
Subjective/Interval History
-
Date of Service: May 04, 2024
Patient had a bowel movement yesterday that was green. Today his stool was brown. No fever, no shortness of breath. Complains of right-sided rib pain from his chest compressions.
Objective Data
-
Labs:
Laboratory Results
05/04/24
04:10
WBC 18.5 H
Hgb 7.8 L
Hct 21.7 L
Plt Count 79 L D
Vital Signs:
Vital Signs
Temp Pulse Resp BP Pulse Ox
98.3 F 70 16 148/93 97
05/04/24 07:11 05/04/24 08:16 05/04/24 08:16 05/04/24 08:16 05/04/24 08:52
I&O
05/03/24 05/04/24 05/05/24
06:59 06:59 06:59
Intake Total 1440 / 1440 1140 / 1140 240 / 240
Output Total 650 / 650 475 / 475
Balance 790 / 790 665 / 665 240 / 240
[2024-05-04] MEDS: TYLENOL 650 MG PO ×2 (10:18→21:59)
--- NOTE | 2024-05-04 11:34 | W.PN.NEPH.HD ---
Assessment
-
Patient seen on dialysis for isolated UF
Systolic blood pressure stable at 137 at current UF profile for 2 kg
Regularly scheduled dialysis will be performed tomorrow
following h/h
Progress Note - Hemodialysis
-
Date of Service: May 04, 2024
Duration: 30 minutes and 2 hours
Opti-Dialyzer: 160
Ultrafiltration: EDW (isolated u/f for 2kg)
Blood Flow: 200
Dialysate Flow: Other (none)
--- NOTE | 2024-05-04 12:08 | PTCARENOTE ---
Patient presently on HD treatment. Nephrology at bedside. Update HD treatment plan. Follow up labs as ordered. Continue with rounds and supportive cares. Hospitalist in to see patient follow up IMU status. Continue with trends as ordererd.
Assessment unchanged, advanced diet as ordered will follow.
--- NOTE | 2024-05-04 13:19 | PTCARENOTE ---
HD continues. Plan for telemetry level of cares. Await bed available. Update with patient in Icu. Continue to follow.
[2024-05-04] MEDS: HEPARIN 2200 UNITS INTRACATH (13:45)
[2024-05-04] MEDS: APRESOLINE 25 MG PO ×2 (16:35→21:59)
--- NOTE | 2024-05-04 16:46 | PTCARENOTE ---
Update with patient and at bedside post hemodialysis. Continue to reinforce progress in ICU stay. Reinforce teaching and medication review. Continue with ambulation and mobility protocols. Patient continues to ambulate to bathroom and room with
supervision. Will continue to follow up plan of telemetry cares.
[2024-05-04] MEDS: CRESTOR 10 MG PO (19:46)
--- NOTE | 2024-05-04 20:47 | PTCARENOTE ---
Assumed care of pt at 1900. Pt is A/O x4, pleasant and cooperative with care. Ambulates independently around room. Currently no c/o pain, has been tolerating diet. SR on monitor, occasionally A-paced. See nursing shift assessment flowsheet for full
physical assessment details. Pt telemetry level of care and will be transferring out this evening.
--- NOTE | 2024-05-04 21:09 | PTCARENOTE ---
Report called to Ana Coates RN, pt transferred to [address] [place] [phone] in wheelchair at this time, all belongings sent with patient.
--- NOTE | 2024-05-04 21:30 | PTCARENOTE ---
Received patient from ICU in wheelchair, ambulated self into room without difficulty. Nursing assessment completed and as documented, oriented to new room, call elizabeth within reach.
[2024-05-05 03:00] VITALS: BP 147/87
[2024-05-05] MEDS: TYLENOL 650 MG PO (05:45)
--- NOTE | 2024-05-05 06:00 | W.PN.HOSP.TC ---
Today's Communication/Plan
-
discharge
Assessment / Plan
Assessment / Plan
Physical Exam
General: No acute distress
HEENT: Normocephalic, Atraumatic, EOMI, MMM
Respiratory: Clear to Auscultation bilaterally
Cardiac: Normal S1/S2, Regular Rate and Rhythm
GI: Soft, Nontender, Nondistended, Normal Bowel Sounds
Extremities: No Clubbing, Cyanosis, or Edema
Neuro: AOx3 conversant coherent
Psych: Calm, Cooperative
Derm: Pallor
69M with hx cryptogenic CVA, essential HTN, nonishcemic cardiomyopathy with recovered EF, VT s/p AICD sent to the ER from nephrology clinic for abnormal outpatient labs with elevated creatinine. Patient has a history of immune complex
glomerulonephritis diagnosed 13 years ago. He declined steroids at this time, lost to follow up then referred to Renal Clinic with creatinine 1.6 in October 2023. Proteinuria > 19G. He has had significant increase in creatinine since then
prompting ER visit and admission.
Acute Renal Failure with significant progression over past 4-6 months
immune complex glomerulonephritis
Nephrotic Proteinuria
+ Casts
- referred to ED from Nephrology at [facility] for abnormal labs out patient
- renal US without hydronephrosis, + casts and 4+ albumin
- appreciate nephrology input, status post kidney biopsy 04/28�showing MPGN
- s/p 3 days pulse steroids, now on oral steroids
- s/p lasix, continue sodium bicarb per renal
- s/p permacath insertion 04/29 for dialysis
- started on dialysis 05/01, continue dialysis as per nephrology
- has outpatient dialysis chair set up at [facility] third shift
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
Gastritis
- Appreciate GI input, 04/30 colonoscopy shows red blood in the gastric fundus, duodenal erosions without bleeding, Visible vessel consistent with a Dieulofoy thought to be likely source of bleeding, which was clipped and injected with epinephrine
- Advanced to regular diet tolerating, PPI drip changed to Protonix 40 mg IV twice daily
- Will need repeat EGD in 8 weeks outpatient, strict NSAID avoidance though cleared to restart Baby aspirin as per discussion with GI
Hemorrhagic shock
Acute blood loss anemia
-Status post 8 units of packed red blood cells
-Hemoglobin improving, repeat cbc in 1-2 days of discharge with results to be forwarded to primary care provider and GI (script provided to facilitate)
Acute right retroperitoneal hematoma
-04/30 CT shows 5.1 cm acute right retroperitoneal hematoma
-follow up CT with primary care provider in 1 month recommended
Code 9 on 04/30
-Patient temporarily lost his pulse full a few seconds with agonal breathing, received CPR with ROSC, no meds needed
Musculoskeletal chest pain
-From CPR
-Tylenol, pain meds
Hypokalemia
- resolved
Hx CVA
- Baby aspirin restarted, cleared to resume as per GI
#essential hypertension
- Resume hydralazine at decreased dose of 25 mg 3 times a day 05/04 (was on 50 mg TID), resumed Coreg 05/02
#hypercholesterolemia
- continue rosuvastatin
#nonischemic cardiomyopathy
- hold [employer] eplerenone
- hold Lasix
- resume carvedilol (dose increased)
- appreciate Cardiology consult
#COPD
- continue albuterol
#Hx ventricular tachycardia s/p dual ICD
EKG: Atrial-paced rhythm
PROLONGED QT
-hold Sotalol in setting of renal failure
-appreciate Cardiology
DVT prophylaxis�SCDs
Full code
Medically stable for discharge home with outpatient follow up recommendations.
Total Time Preparing Discharge __50 minutes including examination of the patient, summary of the hospital stay, instructions for continuing care to all relevant caregivers; and preparation of discharge records, prescriptions, and referral
forms if necessary.
Anticipated Discharge: Today
Subjective/Interval History
-
Date of Service: May 05, 2024
No acute distress. Reports overall feeling well. Ambulating without issues or need for assist device. Reports bloody bowel movements resolved. Denies new acute issues. Eager to go home.
Objective Data
-
Labs:
Laboratory Results
05/05/24
07:00
Hgb Pending
Hct Pending
Sodium Pending
Potassium Pending
Chloride Pending
Carbon Dioxide Pending
BUN Pending
Creatinine Pending
Glucose Pending
Calcium Pending
Vital Signs:
Vital Signs
Temp Pulse Resp BP Pulse Ox
97.5 F 63 18 147/87 98
05/05/24 03:00 05/05/24 03:00 05/05/24 03:00 05/05/24 03:00 05/05/24 03:00
I&O
05/03/24 05/04/24 05/05/24
06:59 06:59 06:59
Intake Total 1440 / 1440 1140 / 1140 480 / 480
Output Total 650 / 650 475 / 475
Balance 790 / 790 665 / 665 480 / 480
--- NOTE | 2024-05-05 06:30 | W.PN.GI.CBS2 ---
Today's Communication / Plan
-
Please see assessment and plan for details.
Assessment / Plan
-
1. GI bleed : Secondary to duodenal Dieulafoy, status post epi, clip and tattoo. His hemoglobin has varied, though no further signs of significant gross bleeding, and anemia is likely multifactorial including retroperitoneal hematoma. Without
further gross GI bleeding, overall feeling well and stable hemodynamics will hold on repeat endoscopy for now. Would continue PPI twice daily on discharge. Will set up office visit for 1 month, plan repeat EGD with probable colonoscopy in 6 to 8
weeks.
We will sign off for now, please go back with any further questions.
Subjective
Subjective
Date of Service: May 05, 2024
Patient feeling great, ambulating without difficulty, has good energy, denies abdominal pain. Had brown and green stools yesterday. Eating without difficulty, no nausea or vomiting.
Objective
Data Reviewed
Laboratory Data:
Laboratory Results
PT 18.1 Sec (11.4-14.6) H 04/30/24 05:50
INR 1.47 04/30/24 05:50
APTT 31.0 Sec (23.4-35.0) 04/30/24 05:50
Phosphorus 4.0 mg/dl (2.5-4.5) 05/03/24 04:32
Magnesium 1.7 mg/dl (1.6-2.3) 05/03/24 04:32
Total Bilirubin 0.5 mg/dl (0.2-1.3) 05/03/24 04:32
AST 21 U/L (17-59) 05/03/24 04:32
ALT 12 U/L (0-50) 05/03/24 04:32
Alkaline Phosphatase 39 U/L (38-126) 05/03/24 04:32
Vital Signs and I&O:
Vital Signs
Temp Pulse Resp BP Pulse Ox
97.5 F 63 18 147/87 98
05/05/24 03:00 05/05/24 03:00 05/05/24 03:00 05/05/24 03:00 05/05/24 03:00
I&O
05/03/24 05/04/24 05/05/24
06:59 06:59 06:59
Intake Total 1440 / 1440 1140 / 1140 480 / 480
Output Total 650 / 650 475 / 475
Balance 790 / 790 665 / 665 480 / 480
Physical Exam
Physical Exam
General: NAD
Abdomen: normal bowel sounds, soft, no tenderness, no masses or bruits, no ascites
[2024-05-05 07:00] VITALS: BP 135/79
[2024-05-05] MEDS: SYMBICORT 160/4.5 MCG INHALER 2 PUFF INH (07:57)
[2024-05-05] MEDS: SPIRIVA RESPIMAT 2.5 MCG 2 PUFF INH (07:57)
[2024-05-05] MEDS: APRESOLINE PO (08:00)
[2024-05-05] MEDS: COREG PO (08:00)
[2024-05-05 08:30] LABS: Hematocrit 24.9 % (39.0-52.0); Hemoglobin 8.8 g/dL (13.0-18.0)
[2024-05-05 08:46] LABS: Blood Urea Nitrogen 68 mg/dl (9-20); Calcium 7.1 mg/dl (8.4-10.2); Carbon Dioxide 24 mmol/L (22-30); Chloride 104 mmol/L (98-107); Estimated Creatinine Clearance 19 ml/min; Glucose 125 mg/dl (70-99); Potassium 3.7 mmol/L (3.5-5.1); Sodium 134 mmol/L (135-145); eGFR 15.17
[2024-05-05] MEDS: RETACRIT 10000 UNITS IV (09:28)
[2024-05-05 11:00] VITALS: BP 139/79
--- NOTE | 2024-05-05 11:10 | W.PN.NEPH.HD ---
Assessment
-
pt seen during HD
vitals stable
hb stable too
UF as tolerates
on steroids for MPGN-no clear etiology
Bactrim PPX
need to improve protein in diet, Alb only 1.6
HD unit [facility]
d/w pt
Progress Note - Hemodialysis
-
Date of Service: May 05, 2024
Duration: 30 minutes and 3 hours
Potassium Bath: 3
Calcium Bath: 2.5
Opti-Dialyzer: 160
Ultrafiltration: Other (2kg)
Blood Flow: 400
Dialysate Flow: 600
Heparin: no
EPO: [id number]
[2024-05-05] MEDS: HEPARIN 4300 UNITS INTRACATH (11:41)
--- NOTE | 2024-05-05 12:17 | CM ---
Addendum entered by Kate Lopez 05/05/24 14:21:
CM received call from Giovanna at [facility], informed CM that patient should come in to center on at 10:30 a.m., instructed patient should not come in on Sunday 4:00 p.m. for scheduled chair time, aware patient had dialysis today (Sunday). Update
to patient. Clinicals faxed to new number from Giovanna [phone].
Please fax discharge paperwork to [facility] [phone]
Original Note:
CM reviewed chart, patient seen bedside. Patient confirms outpatient HD set up at [facility] 4:00 p.m. chair time. Patient reports when discharged, will provide transportation home. IMM reviewed, signed, placed in chart. Call to [facility]-
fax number obtained. CM will continue to follow for all discharge planning needs.
Plan; discharge home with , outpatient HD [facility] Sherri
[facility]
[2024-05-05] MEDS: VITAMIN C 1000 MG PO (12:24)
[2024-05-05] MEDS: B COMPLEX w/VITAMIN C 1 CAPLET PO (12:24)
[2024-05-05] MEDS: PROTONIX IV 40 MG IV (12:25)
[2024-05-05] MEDS: DELTASONE 60 MG PO (12:25)
[2024-05-05] MEDS: VITAMIN D3 (cholecalciferol) 50 MCG PO (12:25)
[2024-05-05] MEDS: NSS (PRESERVATIVE FREE) 10 ML IV (12:25)
[2024-05-05] MEDS: ROXICODONE 5 MG PO (12:32)
[2024-05-05] MEDS: BACTRIM 400 MG/80 MG 1 TABLET PO (13:43)
[2024-05-05 15:00] VITALS: BP 148/94
[2024-05-05] MEDS: APRESOLINE 25 MG PO (16:09)
[2024-05-05] MEDS: COREG 12.5 MG PO (16:10)
--- NOTE | 2024-05-05 16:46 | W.DCSUMMARY ---
Discharge Summary
Discharge Data
Date of Admission: 04/23/24
Date of Discharge: 05/05/24
-
Pending Results: No
Discharge Plan
-
Patient Disposition: Home (Routine Discharge)
Discharge Diagnosis/Procedures: Acute Renal Failure requiring dialysis
Immune complex glomerulonephritis
Nephrotic Proteinuria
Membranoproliferative Glomerulonephritis
Massive Upper GI Bleed Dieulofoy lesion
Hemorrhagic shock
Acute blood loss anemia
Acute right retroperitoneal hematoma
History Stroke
Hypertension
Hyperlipidemia
nonischemic cardiomyopathy
COPD
Hx ventricular tachycardia status post dual ICD
Condition: Fair
Diet: Regular
Activity: As tolerated
Driving Restrictions: No driving when taking oxycodone
Bathing Restrictions: None
Blood Work: Repeat repeat CBC 1-2 days of discharge. Results to be forwarded to primary care provider and GI. Script provided to facilitate
Others Tests: Repeat CT abd/pelvis with primary care provider in 1 month of discharge to follow up 5.1 cm right retroperitoneal hematoma
Activity Restrictions/Additional Instructions:
Follow up with primary care provider in 1 week of discharge, keep your appointment with pulmonology, follow up with nephrology in 2 weeks of discharge, cardiology in 2-4 weeks of discharge, and GI in 1 month of discharge.
Protonix twice a day has been prescribed for recent GI bleed. Follow up with GI for taper instructions before completing.
Prednisone has been prescribed for membranoproliferative glomerulonephritis. Follow up with Nephrology for taper instructions before completing.
Bactrim for infection prophylaxis has been prescribed while on high dose steroids/Prednisone as above.
Home hydralazine dose has been reduced to 25 mg three times a day to reduce risk of hypotension.
Rosuvastatin dose has been reduced to 10 mg due to poor kidney function.
Diuretics Lasix and Eplerenone have been discontinued as dialysis is managing your fluid status for you.
Sotalol has been discontinued due to poor kidney function. Coreg dose subsequently has been increased to three times a day to maintain good rate control with history ventricular tachycardia.
oxycodone has been prescribed as needed for moderate severe pain. Avoid driving when taking oxycodone.
Please take medications as prescribed/recommended and follow up with primary care provider and/or other healthcare provider involved in your care for refills and/or further adjustment to your medication regimen as necessary.
Referrals:
Aryan Ashton MD [Active] - 05/14/24 3:00 pm
Robinson Young MD [Active] - in one month
Sachin Plata DO [Active] - in two weeks
Rob Cheema MD [Active] -
UNKNOWN - PT DOES,NOT KNOW [Family Provider] -
Prescriptions:
New
prednisone 20 mg Tablet
60 mg PO DAILY Qty: 90 0RF
Rx Instructions:
Follow up with Nephrology for taper instructions before completing
hydralazine 25 mg Tablet
25 mg PO TID Qty: 90 0RF
pantoprazole [Protonix] 40 mg tablet,delayed release (DR/EC)
40 mg PO BID Qty: 60 0RF
Rx Instructions:
Follow up with GI for taper instructions before complete
rosuvastatin 10 mg Tablet
10 mg PO QPM Qty: 30 0RF
sulfamethoxazole-trimethoprim 400-80 mg Tablet
1 tab PO HD-MOWEFR@1400 Qty: 30 0RF
oxycodone 5 mg tablet
5 mg PO DAILY PRN (Reason: moderate severe pain) Qty: 5 0RF
Continued
vitamin B complex 1 TAB tablet
1 tab PO DAILY
ascorbic acid (vitamin C) [Vitamin C] 500 MG tablet
1,000 mg PO DAILY
aspirin 81 MG tablet,delayed release (DR/EC)
81 mg PO DAILY Qty: 1 0RF
albuterol sulfate 90 mcg/actuation Hfa Aerosol Inhaler
1 inh INHALATION R Q4HPRN PRN (Reason: sob)
coenzyme Q10 [CoQ-10] 100 mg Capsule
100 mg PO DAILY
omega-3 fatty acids-fish oil 684-1,200 mg Capsule,Delayed Release(Dr/Ec)
1 cap PO DAILY
cholecalciferol (vitamin D3) [Vitamin D3] 50 mcg (2,000 unit) Tablet
50 mcg PO DAILY
Trelegy Ellipta 200-62.5-25 mcg Blister With Device
1 inh INHALATION R DAILY
Changed
carvedilol 25 mg Tablet
12.5 mg PO TID Qty: 45 0RF
Discontinued
sotalol 80 mg Tablet
80 mg PO BID
hydralazine 50 mg Tablet
50 mg PO TID
furosemide 20 mg Tablet
20 mg PO DAILY
eplerenone 25 mg Tablet
25 mg PO DAILY
rosuvastatin 40 mg Tablet
40 mg PO QPM
Discharge Orders:
Discharge Patient (As Directed); Ordered 05/05/24
Ordered By: Valeria Schroeder
Discharge Date and Time
Print Language: [id number]
== END 2024-05-05 17:15 | disposition home or self-care (01) | DRG 673 ==
LOC: 4 WEST ACU 22:46
PROVIDERS: Emergency Medicine; Family Medicine; Internal Medicine; Nurse Practitioner Adult Health; Nurse Practitioner Family; Nurse Practitioner Gerontology; Radiology Diagnostic Radiology; Radiology Vascular & Interventional Radiology; Specialist; Student in an Organized Health Care Education/Training Program; ADMITTING PHYSICIAN Internal Medicine; ATTENDING PHYSICIAN Internal Medicine; CONSULT PHYSICIAN Internal Medicine Critical Care Medicine; CONSULT PHYSICIAN Internal Medicine Gastroenterology; CONSULT PHYSICIAN Specialist; CONSULT PHYSICIAN Student in an Organized Health Care Education/Training Program; EMERGENCY PHYSICIAN Emergency Medicine; OTHER PHYSICIAN Surgery
PROC: 0TB03ZX Excision of Right Kidney, Percutaneous Approach, Diagnostic (ICD-10-PCS; 2024-04-28)
PROC: 0JH63XZ Insertion of Tunneled Vascular Access Device into Chest Subcutaneous Tissue and Fascia, Percutaneous Approach (ICD-10-PCS; 2024-04-29)
PROC: 02H633Z Insertion of Infusion Device into Right Atrium, Percutaneous Approach (ICD-10-PCS; 2024-04-29)
PROC: 5A1D70Z Performance of Urinary Filtration, Intermittent, Less than 6 Hours Per Day (ICD-10-PCS; 2024-04-29)
PROC: 30233N1 Transfusion of Nonautologous Red Blood Cells into Peripheral Vein, Percutaneous Approach (ICD-10-PCS; 2024-04-30)
PROC: 0W3P8ZZ Control Bleeding in Gastrointestinal Tract, Via Natural or Artificial Opening Endoscopic (ICD-10-PCS; 2024-04-30)
DX: N17.9 Acute kidney failure, unspecified (principal); I46.8 Cardiac arrest due to other underlying condition; R57.8 Other shock; J96.01 Acute respiratory failure with hypoxia; K57.31 Diverticulosis of large intestine without perforation or abscess with bleeding; K68.3 Retroperitoneal hematoma; K31.82 Dieulafoy lesion (hemorrhagic) of stomach and duodenum; R57.1 Hypovolemic shock; I13.2 Hypertensive heart and chronic kidney disease with heart failure and with stage 5 chronic kidney disease, or end stage renal disease; E87.20 Acidosis, unspecified; I50.22 Chronic systolic (congestive) heart failure; I42.8 Other cardiomyopathies; D62 Acute posthemorrhagic anemia; D68.9 Coagulation defect, unspecified; F17.200 Nicotine dependence, unspecified, uncomplicated; N18.6 End stage renal disease; E78.00 Pure hypercholesterolemia, unspecified; J44.9 Chronic obstructive pulmonary disease, unspecified; Z86.73 Personal history of transient ischemic attack (TIA), and cerebral infarction without residual deficits; Z79.82 Long term (current) use of aspirin; E87.6 Hypokalemia; K31.89 Other diseases of stomach and duodenum; K44.9 Diaphragmatic hernia without obstruction or gangrene; K29.70 Gastritis, unspecified, without bleeding; K26.9 Duodenal ulcer, unspecified as acute or chronic, without hemorrhage or perforation; K22.89 Other specified disease of esophagus; I34.81 Nonrheumatic mitral (valve) annulus calcification; K21.9 Gastro-esophageal reflux disease without esophagitis; K64.9 Unspecified hemorrhoids; K76.0 Fatty (change of) liver, not elsewhere classified; Z79.899 Other long term (current) drug therapy; Z86.0100 Personal history of colon polyps, unspecified; Z86.79 Personal history of other diseases of the circulatory system; Z95.810 Presence of automatic (implantable) cardiac defibrillator
CPT/HCPCS: 36558; 50200; 51798; 71045; 71046; 74174; 74176; 76937; 76942; 77001; 80048; 80053; 80069; 81003; 81015; 82306; 82570; 83521; 83735; 83880; 84100; 84156; 84300; 84443; 85014; 85018; 85025; 85027; 85610; 85730; 86335; 86704; 86803; 86850; 86900; 86901; 86920; 87086; 87340; 88305; 93005; 93306; 93975; 94640; 99152; 99153; 99285; C1750; G0257; P9016; P9047; Q5106; Q9967

== ENCOUNTER → 2024-07-01 09:28 | Outpatient (REF) | payer MEDICARE, SELFPAY | LOC: HWRAD 09:28 | PROVIDERS: ATTENDING PHYSICIAN Family Medicine | DX: K68.3 Retroperitoneal hematoma (principal); K92.2 Gastrointestinal hemorrhage, unspecified | CPT/HCPCS: 74176 ==

== ENCOUNTER → 2024-07-22 07:19 | Outpatient (REF) | payer MEDICARE, SELFPAY ==
[2024-07-22 07:40] VITALS: BP 142/93; BP_SYST 67
[2024-07-22 08:52] VITALS: BP 161/94; BP_SYST 79
== END ==
LOC: RADI 07:19
PROVIDERS: ATTENDING PHYSICIAN Internal Medicine; FAMILY PHYSICIAN Family Medicine
DX: T82.49XA Other complication of vascular dialysis catheter, initial encounter (principal); Y82.8 Other medical devices associated with adverse incidents; N18.6 End stage renal disease; Z99.2 Dependence on renal dialysis
CPT/HCPCS: 36581; 77001; C1750; C1769

== ENCOUNTER 2024-08-12 06:05 | Day surgery (SDC) | payer MEDICARE, SELFPAY ==
[2024-08-12 13:41] VITALS: BMI 25.8
[2024-08-12 13:42] VITALS: BMI 25.8
[2024-08-12 13:48] VITALS: BP 121/77
[2024-08-12 16:05] VITALS: BP 113/73
[2024-08-12 16:20] VITALS: BP 120/72
[2024-08-12 16:35] VITALS: BP 128/79
== END 2024-08-12 16:48 | disposition home or self-care (01) ==
LOC: GI 06:05
PROVIDERS: ATTENDING PHYSICIAN Internal Medicine Gastroenterology
DX: Z12.11 Encounter for screening for malignant neoplasm of colon (principal); K64.0 First degree hemorrhoids; K55.20 Angiodysplasia of colon without hemorrhage; K44.9 Diaphragmatic hernia without obstruction or gangrene; K22.89 Other specified disease of esophagus; K31.89 Other diseases of stomach and duodenum; K92.2 Gastrointestinal hemorrhage, unspecified; D12.5 Benign neoplasm of sigmoid colon; D12.3 Benign neoplasm of transverse colon; D12.2 Benign neoplasm of ascending colon; D12.0 Benign neoplasm of cecum; D12.4 Benign neoplasm of descending colon; D12.7 Benign neoplasm of rectosigmoid junction; K22.70 Barrett's esophagus without dysplasia; K31.A0 Gastric intestinal metaplasia, unspecified; Z86.0100 Personal history of colon polyps, unspecified
CPT/HCPCS: 45385; 45381; 45380; 43239; 88305; 88342

== ENCOUNTER → 2024-08-15 08:29 | Outpatient (REF) | payer MEDICARE, SELFPAY | LOC: HWRAD 08:29 | PROVIDERS: ATTENDING PHYSICIAN Internal Medicine Critical Care Medicine; FAMILY PHYSICIAN Family Medicine | DX: Z87.891 Personal history of nicotine dependence (principal) | CPT/HCPCS: 71271 ==

== ENCOUNTER → 2024-08-19 09:28 | Outpatient (REF) | payer MEDICARE, SELFPAY ==
[2024-08-19 09:50] VITALS: BP 119/72; BP_SYST 71
[2024-08-19 11:13] VITALS: BP 125/83
== END ==
LOC: RADI 09:28
PROVIDERS: ATTENDING PHYSICIAN Specialist
DX: T82.898A Other specified complication of vascular prosthetic devices, implants and grafts, initial encounter (principal); Y82.8 Other medical devices associated with adverse incidents; N18.6 End stage renal disease
CPT/HCPCS: 36581; 36595; 75901; 77001; C1725; C1750; C1769

== ENCOUNTER → 2024-09-12 06:59 | Outpatient (REF) | payer MEDICARE, SELFPAY ==
[2024-09-12 09:23] LABS: Hematocrit 33.5 % (39.0-52.0); Hemoglobin 10.9 g/dL (13.0-18.0); Mean Corp Hgb Conc. 32.5 g/dL (33.0-37.0); Mean Corpuscular Volume 96.3 fL (80.0-94.0); Platelet Count 202 10^3/uL (130-400); Red Cell Dist. Width 15.4 % (11.5-14.5)
[2024-09-12 13:14] LABS: Blood Urea Nitrogen 32 mg/dl (9-20); Calcium 8.3 mg/dl (8.4-10.2); Carbon Dioxide 26 mmol/L (22-30); Chloride 99 mmol/L (98-107); Glucose 81 mg/dl (70-99); Potassium 5.1 mmol/L (3.5-5.1); Sodium 136 mmol/L (135-145); eGFR 9.42
== END ==
LOC: SDSPAT 06:59
PROVIDERS: ATTENDING PHYSICIAN Surgery; FAMILY PHYSICIAN Family Medicine
DX: Z01.818 Encounter for other preprocedural examination (principal)
CPT/HCPCS: 36415; 80048; 85027

== ENCOUNTER 2024-09-19 05:50 | Day surgery (SDC) | payer MEDICARE, SELFPAY ==
[2024-09-19 06:21] VITALS: BMI 27.3
[2024-09-19 06:22] VITALS: BMI 27.3
[2024-09-19 06:23] VITALS: BP 135/78
--- NOTE | 2024-09-19 06:23 | HP.FOC2 ---
Focused History & Physical
Chief Complaint
HPI:
Chief Complaint: End-stage renal disease with need for dialysis access
HPI / Indication for Planned Procedure: Patient is a 69-year-old male who has been on hemodialysis. 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 He presents today for catheter placement.
Relevant Past Medical History: Other (COPD, hypertension, dilated cardiomyopathy with recovered ejection fraction, history of VTE, nephrotic syndrome)
Relevant Social History: Negative
Relevant Family History: Negative
Relevant Past Surgical History: Positive for (AICD placement)
Review of Systems
Review of Pertinent Systems: All Systems Negative
Medication
See Medication form for detailed medications: Yes
Medication List (including Herbals & OTC):
ascorbic acid (vitamin C) 500 mg tablet (Vitamin C) 1,000 mg PO DAILY Supplement 10/18/18
vitamin B complex 1 tab PO DAILY Supplement 10/18/18
aspirin 81 mg tablet,delayed release 81 mg PO DAILY #1 tab 10/19/18
albuterol sulfate 90 mcg/actuation aerosol inhaler 1 inh inhalation R Q4HPRN PRN sob 04/23/24
cholecalciferol (vitamin D3) 50 mcg (2,000 unit) tablet (Vitamin D3) 50 mcg PO DAILY Supplement 04/23/24
coenzyme Q10 100 mg capsule (CoQ-10) 100 mg PO DAILY Supplement 04/23/24
fluticasone fur. 200 mcg-umeclid 62.5 mcg-vilant 25 mcg inhalat.powder (Trelegy Ellipta) 1 inh inhalation R DAILY Lung/Breathing Issues 04/23/24
omega-3 fatty acids-fish oil 684 mg-1,200 mg capsule,delayed release 1 cap PO DAILY Supplement 04/23/24
carvedilol 25 mg tablet 12.5 mg (1/2 x 25 mg) PO TID Blood Pressure #45 tabs 05/05/24
hydralazine 25 mg tablet 25 mg PO TID #90 tabs 05/05/24
rosuvastatin 10 mg tablet 40 mg PO QPM 07/22/24
pantoprazole 40 mg tablet,delayed release (Protonix) 40 mg PO BID 08/12/24
Medications Reviewed: Yes
Allergies and Reactions
Patient has Allergies: No
Noted Allergies and Reactions:
Allergy/AdvReac Type Severity Reaction Status Date / Time
No Known Allergies Allergy Verified 09/19/24 06:18
Pertinent Physical Exam
All Other Systems: Negative
Head/Neck: Normal
Lungs: Normal
Heart: Normal
Abdomen: Normal
Extremities: Normal
Neurological: Normal
Diagnosis / Assessment
69-year-old male with end-stage renal disease on hemo-dialysis with plans to transition to peritoneal dialysis
Plan / Procedure
Laparoscopic assisted peritoneal dialysis catheter placement
Anesthesia/Sedation to be done by Anesthesia Provider: Yes
--- NOTE | 2024-09-19 06:26 | W.SUR.PREOP ---
Pre-Operative Surgical Note
-
I have examined this patient prior to the performance of the scheduled procedure.
The patient's condition is unchanged from the time of the current History and
Physical and the patient is able to undergo the scheduled procedure.
[2024-09-19] MEDS: NSS 1000 IV (06:33)
[2024-09-19] MEDS: TYLENOL 1000 MG PO (06:33)
[2024-09-19 08:09] VITALS: BP 135/78; BP 139/82
[2024-09-19 08:15] VITALS: BP 121/79
--- NOTE | 2024-09-19 08:17 | W.IMMPOSTOP ---
Addendum entered and electronically signed by Stevie Patel MD 09/19/24 08:25:
#[id number]
Original Note:
Surgical Immed Post Op Note
-
Primary Surgeon: Stevie Patel MD
Assisting Surgeon: None
Pre-op Diagnosis: ESRD on HD
Post-op Diagnosis: ESRD on HD
Procedure Performed: Laparoscopic assisted peritoneal dialysis catheter placement
Anesthesia Type: GETA +0.25% Marcaine
Specimen / Cultures: None
Estimated Blood Loss: 6 mL
Complications: None immediate
Operative Findings: No incidental intra-abdominal findings. On cuff curl catheter with 2 cuffs 1 neck extension and left upper quadrant skin exit site. 1 L inflow 3 minutes, 700 mL outflow 3 minutes.
[2024-09-19 08:45] VITALS: BP 131/77
[2024-09-19 09:00] VITALS: BP 123/75
[2024-09-19 09:30] VITALS: BP 119/68
== END 2024-09-19 09:45 | disposition home or self-care (01) ==
LOC: SDS 05:50
PROVIDERS: ATTENDING PHYSICIAN Surgery
DX: N18.6 End stage renal disease (principal); Z99.2 Dependence on renal dialysis
CPT/HCPCS: 49324; C1894

== ENCOUNTER → 2024-12-25 07:04 | Outpatient (REF) | payer MEDICARE, SELFPAY ==
[2024-12-25 07:20] VITALS: BP 145/98; BP_SYST 78
[2024-12-25 07:47] VITALS: BP 148/93
== END ==
LOC: RADI 07:04
PROVIDERS: ATTENDING PHYSICIAN Specialist; FAMILY PHYSICIAN Family Medicine
DX: Z49.01 Encounter for fitting and adjustment of extracorporeal dialysis catheter (principal); N18.6 End stage renal disease
CPT/HCPCS: 36589

== ENCOUNTER 2025-01-05 06:14 | Day surgery (SDC) | payer MEDICARE, SELFPAY ==
[2024-09-12 12:27] VITALS: BMI 26.2
[2025-01-05 07:24] VITALS: BP 146/89
[2025-01-05 07:28] VITALS: BMI 26.2
[2025-01-05 08:22] VITALS: BP 141/92
[2025-01-05 08:30] VITALS: BP 151/97
[2025-01-05 08:45] VITALS: BP 164/94
== END 2025-01-05 08:55 | disposition home or self-care (01) ==
LOC: SDS 06:14
PROVIDERS: ATTENDING PHYSICIAN Internal Medicine Gastroenterology
DX: K22.89 Other specified disease of esophagus (principal); K31.A0 Gastric intestinal metaplasia, unspecified; K44.9 Diaphragmatic hernia without obstruction or gangrene; Z87.11 Personal history of peptic ulcer disease
CPT/HCPCS: 43239; 88305